=== PATIENT | female | born 1960 | race Caucasian/White ===

== ENCOUNTER → 2023-03-15 | Outpatient (CLI) | payer BC ==
[2023-03-16 02:29] LABS: HCT 51.2 % (37.2-46.3); HGB 16.3 g/dL (12.0-15.0); MCH 29.5 pg (27.0-32.0); MCHC 31.8 g/dL (32.0-37.0); MCV 92.8 fL (80.0-97.0); NRBC Per 100 WBC 0 /100 WBCS (0.0-0.0); Platelet Count 324 X 10*3/uL (140-440); RBC 5.52 X 10*6/uL (4.10-5.20); RDW 12.9 % (11.5-14.5); WBC 17.35 X 10*3/uL (4.50-10.00)
[2023-03-16 04:11] LABS: Basophils # (A) 0.16 X 10*3/uL (0.00-0.10); Basophils % (A) 0.9 %; Eosinophils # (A) 0.41 X 10*3/uL (0.04-0.35); Eosinophils % (A) 2.4 %; Immature Grans, Automated 0.2 %; Lymphocytes # (A) 5.88 X 10*3/uL (0.90-5.00); Lymphocytes % (A) 33.9 %; Monocytes # (A) 1.43 X 10*3/uL (0.20-1.00); Monocytes % (A) 8.2 %; Neutrophils # (A) 9.43 X 10*3/uL (1.80-7.70); Neutrophils % (A) 54.4 %
[2023-03-16 04:12] LABS: RBC Morphology NORMAL
== END | disposition home or self-care (01) ==
LOC: LABWHC1 15:47
PROVIDERS: ATTEND Physician Assistant Medical
DX: E11.9 Type 2 diabetes mellitus without complications (principal); D72.829 Elevated white blood cell count, unspecified
CPT/HCPCS: 36415; 85025

== ENCOUNTER → 2023-03-25 | Outpatient (CLI) | payer BC ==
--- NOTE | 2023-03-25 16:01 | US ---
EXAMINATION TYPE: US kidneys/renal and bladder DATE OF EXAM: 03/25/2023 COMPARISON: NONE CLINICAL INDICATION: Female, 63 years old with history of R10.9 ABD PAIN; Pt states right flank pain EXAM MEASUREMENTS: Right Kidney: 13.3 x 5.7 x 5.5 cm Left Kidney: 11.1 x 5.6 x 4.5 cm Post Void Residual Volume: 4 mL Right Kidney: Complex/solid lesion lower pole= 6.1 x 4.7 x 4.5 cm Left Kidney: wnl Bladder: wnl Bilateral Jets seen: No Normal Post Void Residual: Yes There is no evidence for hydronephrosis at this point in time. When scanning the right kidney adjacen t liver is heterogeneous and hyperechoic suggesting diffuse fatty infiltration. No nephrolithiasis is seen. Suspicious for dominant solid mass with cystic component measuring 6.1 x 4.5 x 4.7 cm lower po le right kidney.. The urinary bladder is adequately distended. Bilateral ureteral jets are seen. Tr paloma residual urine after voiding. IMPRESSION: Complex mass lower pole right kidney. Renal neoplasm needs to be considered. Follow-up re nal protocol CT or MRI is advised to further evaluate.
== END | disposition home or self-care (01) ==
LOC: RADUSWWP 14:41
PROVIDERS: ATTEND Family Medicine
DX: N28.89 Other specified disorders of kidney and ureter (principal); R10.9 Unspecified abdominal pain
CPT/HCPCS: 76770

== ENCOUNTER → 2023-03-26 | Outpatient (CLI) | payer BC ==
[2023-03-26 09:23] LABS: Basophils % (A) 0 %; Eosinophils # (A) 0.2 k/uL (0-0.7); Eosinophils % (A) 2 %; HCT 47.7 % (34.0-46.0); HGB 15.4 gm/dL (11.4-16.0); Lymphocytes # (A) 3.3 k/uL (1.0-4.8); Lymphocytes % (A) 25 %; MCHC 32.3 g/dL (31.0-37.0); MCV 89.7 fL (80.0-100.0); Mean Platelet Volume 9.4; Monocytes # (A) 0.7 k/uL (0-1.0); Monocytes % (A) 6 %; Neutrophils # (A) 8.5 k/uL (1.3-7.7); Neutrophils % (A) 66 %; Platelet Count 263 k/uL (150-450); RBC 5.32 m/uL (3.80-5.40); RDW 12.6 % (11.5-15.5); WBC 12.9 k/uL (3.8-10.6)
[2023-03-26 14:31] LABS: Erythrocyte Sedimentation Rate 7 mm/hr (0-20)
[2023-03-26 15:17] LABS: Rheumatoid Factor, Qnt <10 IU/mL (0-15)
[2023-03-26 15:37] LABS: ALT 16 U/L (8-44); AST 17 U/L (13-35); African American GFR (CKD) 78.3 (60.0-200.0); Albumin 4.1 g/dL (3.8-4.9); Albumin/Globulin Ratio 1.58 (1.60-3.17); Alkaline Phosphatase 58 U/L (41-126); BUN/Creat Ratio 15.33 Ratio (12.00-20.00); Blood Urea Nitrogen 13.8 mg/dL (9.0-27.0); Calcium 9.7 mg/dL (8.7-10.3); Chloride 107 mmol/L (96-109); Chol/HDL Ratio 2.95 Ratio; Globulin 2.6 g/dL (1.6-3.3); Glucose 111 mg/dL (70-110); LDL Cholesterol,Calculated 76.3 mg/dL (0.0-131.0); Non-African American GFR(CKD) 67.6 (60.0-200.0); Potassium 4.6 mmol/L (3.5-5.5); Sodium 143 mmol/L (135-145); Total Protein 6.7 g/dL (6.2-8.2)
== END | disposition home or self-care (01) ==
LOC: LABWHC1 07:30
PROVIDERS: ATTEND Physician Assistant Medical
DX: Z13.220 Encounter for screening for lipoid disorders (principal); Z13.1 Encounter for screening for diabetes mellitus; D72.829 Elevated white blood cell count, unspecified; E11.9 Type 2 diabetes mellitus without complications; R53.83 Other fatigue; R21 Rash and other nonspecific skin eruption
CPT/HCPCS: 36415; 80053; 80061; 83036; 84443; 84481; 85025; 85652; 86038; 86140; 86431

== ENCOUNTER → 2023-04-01 | Outpatient (CLI) | payer BC ==
--- NOTE | 2023-04-02 08:51 | MR ---
EXAMINATION TYPE: MR kidney wo/w con DATE OF EXAM: 04/01/2023 COMPARISON: Ultrasound 03/25/2023 HISTORY: Mass on right kidney CONTRAST: Standard multiplanar, multisequence MRI departmental protocol images were obtained without contrast a nd with 11 mL intravenous Gadavist gadolinium contrast. FINDINGS: There is a heterogeneous signal mass involving the lower pole the right kidney measuring 6 x 4.5 x 4. 5 cm. Lesion appears partially cystic and subtraction sequencing demonstrates enhancement with a larg e solid component. No evidence of renal vein invasion. No definite surrounding adenopathy. Pancreas and adrenal glands are homogeneous in signal. Visualized liver and spleen are homogeneous in signal. In the upper pole of the bilateral kidneys there are subcentimeter well-circumscribed lesions with no enhancement and MRI characteristics of simple cyst Bosniak classification 1. There is no free fluid. No adenopathy. Hypertrophic and degenerative change of the spine is seen. Aor ta of normal caliber. IMPRESSION: 1. There is a 6 x 4.5 x 4.5 cm partially cystic partially solid enhancing mass involving the lower po le the right kidney compatible with a Bosniak classification 4 suspicious for renal carcinoma. No adjacent adenopathy or renal vein invasion.
== END | disposition home or self-care (01) ==
LOC: RADMRIMAIN 09:03
PROVIDERS: ATTEND Physician Assistant Medical
DX: N28.89 Other specified disorders of kidney and ureter (principal)
CPT/HCPCS: 74183; A9585

== ENCOUNTER → 2023-04-15 | Outpatient (CLI) | payer BC ==
[2023-04-15 16:11] LABS: African American GFR (CKD) >90 (>60 ml/min/1.73 sqM); Blood Urea Nitrogen 17 mg/dL (7-17); Non-African American GFR(CKD) 80 (>60 ml/min/1.73 sqM)
--- NOTE | 2023-04-16 09:05 | CT ---
EXAMINATION TYPE: CT chest wo con DATE OF EXAM: 04/15/2023 COMPARISON: NONE HISTORY: Rt side kidney mass or neoplasm. Staging study. CT DLP: 495.5 mGycm. Automated Exposure Control for Dose Reduction was Utilized. TECHNIQUE: CT scan of the thorax is performed without IV contrast. FINDINGS: LUNGS: The lungs are grossly clear, there is no concerning greater than 5 mm parenchymal mass or nodu le identified. There is 4 mm peripheral calcified left lower lobe nodule or benign granuloma axial im age 43. There is 2 to 3 mm peripheral noncalcified nodule in the left lower lobe axial image 45. Ther e is 3 mm nodule in the periphery left upper lobe axial image 23. There is no pleural effusion or pn eumothorax seen. The tracheobronchial tree is patent. MEDIASTINUM: Lack of IV contrast is noted to limit evaluation for mediastinal and especially hilar ad enopathy. There are calcified right peritracheal and bilateral hilar along with subcarinal lymph node s. No greater than 1 cm noncalcified mediastinal lymph nodes. No cardiomegaly or pericardial effusi on is seen. Ascending aorta measures up to 4.0 cm in diameter. OTHER: There are prominent borderline enlarged bilateral axillary lymph nodes. There is additional 1. 0 cm mass in the lower lateral right thorax axial image 38 favoring low lying lymph node. Visualized liver is low dense consistent with diffuse fatty infiltration. Multilevel spurring in the spine is se en. IMPRESSION: A few scattered small nodules is nonspecific. No convincing evidence of metastatic diseas e. Evidence of old granulomatous disease. Nonspecific prominent borderline enlarged bilateral axillar y lymph nodes.
== END | disposition home or self-care (01) ==
LOC: RADCTMAIN 15:23
PROVIDERS: ATTEND Urology
DX: D41.02 Neoplasm of uncertain behavior of left kidney (principal); R91.8 Other nonspecific abnormal finding of lung field
CPT/HCPCS: 82565; 84520; 71250; 36415; Q9967

== ENCOUNTER → 2023-05-02 | Outpatient (CLI) | payer BC ==
[2023-05-02 15:53] LABS: BUN/Creat Ratio 15.89 Ratio (12.00-20.00); Blood Urea Nitrogen 14.3 mg/dL (9.0-27.0); Calcium 10.2 mg/dL (8.7-10.3); Carbon Dioxide 29.2 mmol/L (21.6-31.8); Chloride 98 mmol/L (96-109); Glucose 124 mg/dL (70-110); Potassium 4.1 mmol/L (3.5-5.5); Sodium 139 mmol/L (135-145)
[2023-05-02 16:07] LABS: Appearance,Urine Clear (Clear); Bilirubin,Urine Negative (Negative); Blood,Urine Negative (Negative); Color,Urine Yellow (Yellow); Ketones,Urine Negative (Negative); Nitrite,Urine Negative (Negative); Specific Gravity,Urine 1.008 (1.001-1.030); Urobilinogen,Urine 0.2
[2023-05-02 20:38] LABS: Basophils # (A) 0.08 X 10*3/uL (0.00-0.10); Basophils % (A) 0.5 %; Eosinophils # (A) 0.14 X 10*3/uL (0.04-0.35); Eosinophils % (A) 0.9 %; HCT 48.2 % (37.2-46.3); HGB 15.7 d/dL (12.0-15.0); Lymphocytes # (A) 4.17 X 10*3/uL (0.90-5.00); Lymphocytes % (A) 25.6 %; MCHC 32.6 d/dL (32.0-37.0); Mean Platelet Volume 11.4 FL (9.5-12.2); Monocytes # (A) 1.36 X 10*3/uL (0.20-1.00); Monocytes % (A) 8.4 %; NRBC Per 100 WBC 0 X 10*3/uL (0.00-0.01); Neutrophils # (A) 10.42 X 10*3/uL (1.80-7.70); Platelet Count 317 X 10*3/uL (140-440); RBC 5.24 X 10*6/uL (4.10-5.20); RDW 13.3 % (11.5-14.5); WBC 16.26 X 10*3/uL (4.50-10.00)
== END | disposition home or self-care (01) ==
LOC: LABPAT 08:44
PROVIDERS: ATTEND Urology
DX: Z01.812 Encounter for preprocedural laboratory examination (principal); D41.01 Neoplasm of uncertain behavior of right kidney; N28.89 Other specified disorders of kidney and ureter; E11.9 Type 2 diabetes mellitus without complications; R31.29 Other microscopic hematuria
CPT/HCPCS: 36415; 80048; 81003; 85025; 87086

== ENCOUNTER 2023-05-09 09:18 | Observation (INO) | payer BC ==
[~2023-05-09 09:18] MED LIST: DEXAMETHASONE SOD PHOSPHATE 4 MG/ML 1 ML VIAL IV ONE; ONDANSETRON 4 MG/2 ML VIAL IVP ONE; fentaNYL (PF) 50 MCG/ML 2 ML AMP IV PRN
[2023-05-09 09:58] LABS: Glucose,Whole Blood 142 mg/dL (70-110)
[2023-05-09] MEDS: LACTATED RINGERS 1,000 ML IV SCH ×2 (10:03→18:06)
[2023-05-09] MEDS ORDERED: MIDAZOLAM 2 MG/2 ML VIAL IVP ONE (10:30)
--- NOTE | 2023-05-09 10:30 | P.HPIHPCON ---
History of Present Illness H&P Date: 05/09/23 Chief Complaint: Right renal mass This is a 63-year-old female with history of 6 cm right-sided cystic renal mass was found incidentally. Discussed with her this is highly concerning for renal cell carcinoma. Discussed with her the option of a right-sided partial nephrectomy with a possible conversion to radical nephrectomy. Discussed with her the risk which includes but not limited to bleeding, infection, injury to nearby organs which includes but not limited to bowel, liver, blood vessels. Discussed also given the size of the tumor there is a high potential of converting to a radical nephrectomy. Discussed if radical nephrectomy is performed there is a risk of needing hemodialysis in the short and long-term. Discussed also the potential of cancer recurrence and the need for surveillance. Discussed also potential this could be a benign pathology. Of note she did have evidence of a 7 mm pulmonary nodule, discussed she will need surveillance CT chest as this is not definitive for metastatic disease but there is potential of metastatic disease. She was evaluated by medical oncology prior to surgery. Medical complication was also discussed. She understood all the risk and agreed to proceed with a right-sided partial nephrectomy possible radical nephrectomy robotically Consent for Procedure: I have explained the operation/procedure to the patient, including the risks, benefits, side effects, alternative therapies (including not receiving the proposed treatment or service), the likelihood of the patient achieving his/her goals, and potential recuperation problems for the procedure/sedation/analgesia, as well as any blood products, if indicated. I also explained to the patient the risks, benefits and side effects of the alternatives, as well as the risks related to not receiving the proposed procedure, care, treatment, or services. Past Medical History Past Medical History: Diabetes Mellitus, Hypertension History of Any Multi-Drug Resistant Organisms: None Reported Past Surgical History: Section, Cholecystectomy, Hysterectomy, Joint Replacement Additional Past Surgical History / Comment(s): LEFT KNEE REPLACEMENT Past Anesthesia/Blood Transfusion Reactions: No Reported Reaction Past Psychological History: Anxiety Smoking Status: Current every day smoker Past Alcohol Use History: Occasional Past Drug Use History: None Reported - Past Family History Mother Family Medical History: No Reported History Medications and Allergies Home Medications Medication Instructions Recorded Confirmed Type Aspirin 81 mg PO DAILY 09/16/15 05/07/23 History Cholecalciferol [Vitamin D3] 1,000 unit PO DIRECTED 09/16/15 05/07/23 History Benazepril [Lotensin] 10 mg PO DAILY 05/07/23 05/07/23 History Ondansetron [Zofran] 4 mg PO Q8HR PRN 05/07/23 05/07/23 History Triamterene/Hydrochlorothiazid 1 each PO DAILY 05/07/23 05/07/23 History [Triamterene-Hctz 37.5-25 mg Cp] amLODIPine [Norvasc] 5 mg PO DAILY 05/07/23 05/07/23 History sitaGLIPtin PHOS/metFORMIN HCL 1 tab PO DAILY 05/07/23 05/07/23 History [Janumet Xr 100-1,000 mg Tablet] Allergies Allergy/AdvReac Type Severity Reaction Status Date / Time nickel Allergy Rash/Hives Verified 05/09/23 09:45 Sulfa (Sulfonamide Allergy Rash/Hives Verified 05/09/23 09:45 Antibiotics) codeine AdvReac Nausea & Verified 05/09/23 09:45 Vomiting & Diarrhea Surgical - Exam Vital Signs Temp Pulse Resp BP Pulse Ox 97.8 F 68 16 134/70 97 05/09/23 09:41 05/09/23 09:41 05/09/23 09:41 05/09/23 09:41 05/09/23 09:41 - General no distress, no pain - Eyes normal ocular movement, no pale - ENT normal nares, normal mucosa - Respiratory normal expansion, normal respiratory effort - Abdomen Abdomen: soft, non tender - Psychiatric oriented to time, oriented to person, oriented to place Results - Labs Abnormal Lab Results - Last 24 Hours (Table) 05/09/23 Range/Units 09:57 POC Glucose (mg/dL) 142 H (70-110) mg/dL Assessment and Plan Assessment: OR for right-sided robotic partial nephrectomy possible radical
[2023-05-09] MEDS ORDERED: ROCURONIUM 10 MG/ML (5 ML VIAL) IV ONE (11:19)
[2023-05-09] MEDS ORDERED: fentaNYL (PF) 50 MCG/ML 2 ML AMP ONE (11:19)
[2023-05-09] MEDS ORDERED: GLYCOPYRROLATE 0.2 MG/ML 2 ML VIAL ONE (11:19)
[2023-05-09] MEDS ORDERED: KETOROLAC 30 MG/ML 1 ML VIAL ONE (11:19)
[2023-05-09] MEDS ORDERED: MIDAZOLAM 2 MG/2 ML VIAL ONE (11:19)
[2023-05-09] MEDS ORDERED: LIDOCAINE 2% INJ 20 MG/ML (2 ML VIAL) ONE (11:19)
[2023-05-09] MEDS ORDERED: SUCCINYLCHOLINE CHLORIDE 200 MG/10 ML VIAL IV ONE (11:19)
[2023-05-09] MEDS ORDERED: NEOSTIGMINE 1 MG/ML 10 ML VIAL ONE (11:19)
[2023-05-09] MEDS ORDERED: PROPOFOL 10 MG/ML 20 ML VIAL IV ONE (11:19)
[2023-05-09] MEDS ORDERED: HYDROmorphone (PF) 1 MG/ML ONE (11:19)
[2023-05-09] MEDS ORDERED: BUPIVACAINE (PF) 0.25% 30 ML VIAL SQ ONE (12:27)
[2023-05-09] MEDS ORDERED: LACTATED RINGERS 1,000 ML IV ONE (13:14)
--- NOTE | 2023-05-09 14:15 | P.OP ---
Date of Procedure: 05/09/23 Preoperative Diagnosis: Right renal mass Postoperative Diagnosis: Same Procedure(s) Performed: Right sided robotic partial nephrectomy, with intraoperative ultrasound Implants: None Anesthesia: ADDIE Surgeon: Erick Toro Meeting Planner #1: Rubina Snell Estimated Blood Loss (ml): 100 Pathology: other (Right renal mass) Condition: stable Disposition: PACU Indications for Procedure: This is a 63-year-old female with history of 6 cm right-sided cystic renal mass was found incidentally. Discussed with her this is highly concerning for renal cell carcinoma. Discussed with her the option of a right-sided partial nephrectomy with a possible conversion to radical nephrectomy. Discussed with her the risk which includes but not limited to bleeding, infection, injury to nearby organs which includes but not limited to bowel, liver, blood vessels. Discussed also given the size of the tumor there is a high potential of converting to a radical nephrectomy. Discussed if radical nephrectomy is performed there is a risk of needing hemodialysis in the short and long-term. Discussed also the potential of cancer recurrence and the need for surveillance. Discussed also potential this could be a benign pathology. Of note she did have evidence of a 7 mm pulmonary nodule, discussed she will need surveillance CT chest as this is not definitive for metastatic disease but there is potential of metastatic disease. She was evaluated by medical oncology prior to surgery. Medical complication was also discussed. She understood all the risk and agreed to proceed with a right-sided partial nephrectomy possible radical nephrectomy robotically Description of Procedure: The patient was taken to the operating room . General anesthesia was induced. She was prepped and draped in sterile fashion, and was placed in modified flank position . All pressure points were padded. The abdominal insufflation was achieved with the Veress needle. A 8 mm camera port was placed. Robotic trocars and journeyman operator assistant ports were placed under direct vision. a 5 mm liver retractor was placed. . The robot was docked into place. The colon was mobilized medially by incising along the white line of Toldt. Next the duodenum was kocherized. Once the bowel, was mobilized. At this time the gonadal vessel was visualized. Once the gonadal vessel and ureter was visualized , next after the psoas plane was developed the ureter and gonadal vessel was retracted anteriorly off the psoas muscle. Dissection proceeded cranially towards the renal hilum.The renal vessels were dissected. The renal artery and the vein was dissected in preparation for clamping. Next attention was carried to the tumor, the area around the tumor was defatted, insuring adequate defatting to identify a normal parenchyma. Intraoperative ultrasound was used to clearly defined the tumor edges. Manitol was administered. The renal artery was clamped using 3 bulldogs. After clamping the renal artery the tumor was enucleated given the close proximity to the hilum. Cautery was used in areas of bleeding. Next the defect was closed in 2 layers using 30V lock for the inner layer, 20V lock in interrupted fashion for the outer layer. Sliding clip technique was used. Next the clamps were removed, there was no evidence of bleeding from the defect. Total clamp time was 24 minutes. Hemostatic agents were applied The kidney tumor was placed in an Endo Catch bag. The gerota l fat around the kidney was closed using 3-0 V lock. A KEISHA drain was placed through the lower robotic trocor incision. The robot was then de-docked and the specimen was then removed by extending the journeyman operator assistant port. Fascia was closed using #1 PDS in running fashion. Skin was closed with subcuticular sutures and dermabond. The patient was awoken from general anesthesia in stable condition. all counts were correct Please refer to the final pathology report for final diagnosis
[2023-05-09] MEDS ORDERED: ONDANSETRON 4 MG/2 ML VIAL IVP PRN (14:16)
[2023-05-09] MEDS ORDERED: MEPERIDINE 50 MG/ML SYRINGE IVP ONE (15:02)
[2023-05-09] MEDS: SODIUM CHLORIDE 0.9% 1,000 ML IV SCH ×2 (16:08→17:20)
[2023-05-09] MEDS: KETOROLAC 15 MG/ML 1 ML VIAL IVP SCH (17:19)
[2023-05-09 20:25] LABS: Glucose,Whole Blood 130 mg/dL (70-110)
[2023-05-09] MEDS: HYDROmorphone 1 MG/ML 1 ML SYRINGE IVP PRN (20:25)
[2023-05-10] MEDS: KETOROLAC 15 MG/ML 1 ML VIAL IVP SCH ×4 (00:15→16:46)
[2023-05-10] MEDS: HYDROmorphone 1 MG/ML 1 ML SYRINGE IVP PRN ×3 (02:41→20:33)
[2023-05-10 06:13] LABS: Glucose,Whole Blood 112 mg/dL (70-110)
[2023-05-10 06:41] LABS: Basophils % (A) 0 %; Eosinophils # (A) 0.1 k/uL (0-0.7); Eosinophils % (A) 1 %; HCT 40.5 % (34.0-46.0); HGB 13.1 gm/dL (11.4-16.0); Lymphocytes # (A) 3.4 k/uL (1.0-4.8); Lymphocytes % (A) 18 %; MCH 29.4 pg (25.0-35.0); MCHC 32.4 g/dL (31.0-37.0); MCV 90.9 fL (80.0-100.0); Mean Platelet Volume 8.9; Monocytes # (A) 1.4 k/uL (0-1.0); Monocytes % (A) 7 %; Neutrophils # (A) 13.9 k/uL (1.3-7.7); Neutrophils % (A) 73 %; Platelet Count 262 k/uL (150-450); RBC 4.46 m/uL (3.80-5.40)
[2023-05-10 06:59] LABS: African American GFR (CKD) 83 (>60 ml/min/1.73 sqM); Anion Gap 4 mmol/L; Blood Urea Nitrogen 14 mg/dL (7-17); Calcium 8.3 mg/dL (8.4-10.2); Carbon Dioxide 27 mmol/L (22-30); Chloride 103 mmol/L (98-107); Glucose 83 mg/dL (74-99); Non-African American GFR(CKD) 72 (>60 ml/min/1.73 sqM); Potassium 3.8 mmol/L (3.5-5.1); Sodium 134 mmol/L (137-145)
[2023-05-10] MEDS: LINAGLIPTIN 5 MG TABLET PO SCH (08:06)
[2023-05-10] MEDS: metFORMIN 500 MG TAB PO SCH ×2 (08:06→20:18)
[2023-05-10] MEDS: TRIAMTERENE-HCTZ 37.5-25MG 1 EACH CAP PO SCH (08:06)
[2023-05-10] MEDS: lisinopriL 10 MG TAB PO SCH (08:07)
[2023-05-10] MEDS: amLODIPine 5 MG TAB PO SCH (08:07)
[2023-05-10] MEDS: CHOLECALCIFEROL 25 MCG (1000 IU) TABLET PO SCH (08:07)
--- NOTE | 2023-05-10 08:28 | P.PN ---
Subjective Progress Note Date: 05/10/23 Principal diagnosis: POD #1, s/p robotic-assisted laparoscopic right partial nephrectomy The patient reports mild incisional discomfort. She is concerned she has not had a bowel movement. She denies nausea. She has ambulated. Objective - Vital Signs Vital signs: Vital Signs Temp 98.3 F 05/10/23 06:40 Pulse 65 05/10/23 06:40 Resp 16 05/10/23 06:40 BP 146/82 05/10/23 06:40 Pulse Ox 96 05/10/23 06:40 FiO2 Intake & Output 05/09/23 05/10/23 05/10/23 18:59 06:59 18:59 Intake Total 2750 Output Total 775 435 Balance 1974 - Weight 107 kg Intake: IV 2750 Output: Drainage 75 35 Right Lower Abdomen 75 35 Urine 600 400 Estimated Blood Loss 100 Other: Voiding Method Indwelling Catheter Indwelling Catheter - Constitutional General appearance: Present: average body habitus, cooperative, no acute distress - Gastrointestinal Gastrointestinal Comment(s): Soft, nondistended. Incisions clean, dry, and intact. - Psychiatric Psychiatric: Present: A&O x's 3 - Labs CBC & Chem 7: 05/10/23 05:13 05/10/23 05:13 Labs: Abnormal Lab Results - Last 24 Hours (Table) 05/09/23 05/09/23 05/10/23 Range/Units 09:57 20:23 05:13 WBC 19.0 H (3.8-10.6) k/uL Neutrophils # 13.9 H (1.3-7.7) k/uL Monocytes # 1.4 H (0-1.0) k/uL Sodium (137-145) mmol/L POC Glucose (mg/dL) 142 H 130 H (70-110) mg/dL Calcium (8.4-10.2) mg/dL 05/10/23 05/10/23 Range/Units 05:13 06:12 WBC (3.8-10.6) k/uL Neutrophils # (1.3-7.7) k/uL Monocytes # (0-1.0) k/uL Sodium 134 L (137-145) mmol/L POC Glucose (mg/dL) 112 H (70-110) mg/dL Calcium 8.3 L (8.4-10.2) mg/dL Assessment and Plan (1) Right renal mass Current Visit: Yes Status: Acute Code(s): N28.89 - OTHER SPECIFIED DISORDERS OF KIDNEY AND URETER SNOMED Code(s): 590685390 Plan: The Patton catheter will be removed. The KEISHA drain will remain in place. Discharge home in 24 hours is anticipated.
[2023-05-10] MEDS ORDERED: CHOLECALCIFEROL 25 MCG (1000 IU) TABLET PO SCH (09:00)
[2023-05-10 11:26] LABS: Glucose,Whole Blood 113 mg/dL (70-110)
[2023-05-10 13:20] VITALS: BMI 33.8
[2023-05-10] MEDS: SODIUM CHLORIDE 0.9% 1,000 ML IV SCH (14:56)
[2023-05-10 16:37] LABS: Glucose,Whole Blood 135 mg/dL (70-110)
[2023-05-10 20:00] LABS: Glucose,Whole Blood 139 mg/dL (70-110)
[2023-05-11] MEDS: KETOROLAC 15 MG/ML 1 ML VIAL IVP SCH ×3 (00:13→14:09)
[2023-05-11 05:57] LABS: Glucose,Whole Blood 124 mg/dL (70-110)
[2023-05-11] MEDS: LACTATED RINGERS 1,000 ML IV SCH (06:36)
[2023-05-11] MEDS: SODIUM CHLORIDE 0.9% 1,000 ML IV SCH (06:37)
[2023-05-11 07:26] VITALS: RESP 16
[2023-05-11] MEDS: TRIAMTERENE-HCTZ 37.5-25MG 1 EACH CAP PO SCH (08:58)
[2023-05-11] MEDS: CHOLECALCIFEROL 25 MCG (1000 IU) TABLET PO SCH (08:58)
[2023-05-11] MEDS: lisinopriL 10 MG TAB PO SCH (08:58)
[2023-05-11] MEDS: LINAGLIPTIN 5 MG TABLET PO SCH (08:58)
[2023-05-11] MEDS: metFORMIN 500 MG TAB PO SCH (08:58)
[2023-05-11] MEDS: amLODIPine 5 MG TAB PO SCH (08:58)
[2023-05-11 11:19] LABS: Glucose,Whole Blood 81 mg/dL (70-110)
[2023-05-11 13:52] VITALS: BP 138/81; PULSE 78; TEMP 98.6
--- NOTE | 2023-05-11 14:08 | P.DS ---
Providers Date of admission: 05/10/23 13:55 Expected date of discharge: 05/11/23 Attending physician: Erick Toro MD Primary care physician: Raphael Calixto - Discharge Diagnosis(es) (1) Right renal mass Current Visit: Yes Status: Acute Hospital Course: On the day of admission, the patient underwent an uncomplicated robotic-assisted laparoscopic right partial nephrectomy. The perioperative course was unremarkable. She remained afebrile with stable vital signs. She reported significant incisional discomfort on the first postoperative day, which was much improved on the second postoperative day. She was tolerating diet in small amounts. She denied nausea, chest pain, and dyspnea. She was passing flatus but had not had a bowel movement. She experienced some bleeding from one of her incisions on the first postoperative day. At the time of discharge, the abdomen was soft and nondistended. The incisions were clean, dry, and intact. KEISHA nicholas inage was minimal, and therefore the drain was removed prior to discharge. Procedures: Robotic assisted laparoscopic right partial nephrectomy on 05/09/2023. Patient Condition at Discharge: Good Plan - Discharge Summary Discharge Rx Participant: No New Discharge Prescriptions: New traMADol HCl [Ultram] 50 mg PO Q6HR PRN 3 Days #10 tab PRN Reason: Moderate To Severe Pain (4-10) No Action Cholecalciferol [Vitamin D3] 1,000 unit PO DIRECTED Aspirin 81 mg PO DAILY Triamterene/Hydrochlorothiazid [Triamterene-Hctz 37.5-25 mg Cp] 1 each PO DAILY Benazepril [Lotensin] 10 mg PO DAILY sitaGLIPtin PHOS/metFORMIN HCL [Janumet Xr 100-1,000 mg Tablet] 1 tab PO DAILY Ondansetron [Zofran] 4 mg PO Q8HR PRN PRN Reason: Nausea amLODIPine [Norvasc] 5 mg PO DAILY Discharge Medication List Aspirin 81 mg PO DAILY 09/16/15 [History] Cholecalciferol [Vitamin D3] 1,000 unit PO DIRECTED 09/16/15 [History] Benazepril [Lotensin] 10 mg PO DAILY 05/07/23 [History] Ondansetron [Zofran] 4 mg PO Q8HR PRN 05/07/23 [History] Triamterene/Hydrochlorothiazid [Triamterene-Hctz 37.5-25 mg Cp] 1 each PO DAILY 05/07/23 [History] amLODIPine [Norvasc] 5 mg PO DAILY 05/07/23 [History] sitaGLIPtin PHOS/metFORMIN HCL [Janumet Xr 100-1,000 mg Tablet] 1 tab PO DAILY 05/07/23 [History] traMADol HCl [Ultram] 50 mg PO Q6HR PRN 3 Days #10 tab 05/11/23 [Rx] Follow up Appointment(s)/Referral(s): Erick Toro MD [STAFF PHYSICIAN] - 05/20/23 Activity/Diet/Wound Care/Special Instructions: Diet as tolerated. May shower on 05/12/2023. Drink plenty of fluids. No lift ing or strenuous activity. No driving for 1 week. Discharge Disposition: HOME SELF-CARE
== END 2023-05-11 14:58 | disposition home or self-care (01) ==
LOC: OR 09:18 → 4SSUR 14:27 → OR 05-10 13:55 → 4SSUR 05-10 13:55
PROVIDERS: ADMIT Urology; ATTEND Urology
DX: C64.1 Malignant neoplasm of right kidney, except renal pelvis (principal); E11.9 Type 2 diabetes mellitus without complications; Z98.891 History of uterine scar from previous surgery; Z90.49 Acquired absence of other specified parts of digestive tract; Z90.710 Acquired absence of both cervix and uterus; Z96.652 Presence of left artificial knee joint; F41.9 Anxiety disorder, unspecified; F17.200 Nicotine dependence, unspecified, uncomplicated; Z79.84 Long term (current) use of oral hypoglycemic drugs; Z79.02 Long term (current) use of antithrombotics/antiplatelets; Z79.82 Long term (current) use of aspirin; Z79.899 Other long term (current) drug therapy; Z88.5 Allergy status to narcotic agent; Z88.2 Allergy status to sulfonamides; Z91.09 Other allergy status, other than to drugs and biological substances
CPT/HCPCS: 94760; 86900; 86901; 80048; 85025; 86850; 88307; 50543; G0378 ×2; C1762; J2250; J0330; J1100; J2710; J2175; J0690; J2405; J3010; J1885 ×4; J1170 ×2; J2704; J2001

== ENCOUNTER 2023-05-28 12:54 | Emergency (ER) | payer BC ==
[2023-05-28 13:10] VITALS: RESP 18; TEMP 97.7
[2023-05-28 13:43] LABS: Basophils # (A) 0.1 k/uL (0-0.2); Basophils % (A) 0 %; Eosinophils # (A) 2.2 k/uL (0-0.7); Eosinophils % (A) 11 %; Lymphocytes # (A) 5.5 k/uL (1.0-4.8); Lymphocytes % (A) 27 %; MCH 29.3 pg (25.0-35.0); Mean Platelet Volume 8.5; Monocytes # (A) 0.8 k/uL (0-1.0); Monocytes % (A) 4 %; Neutrophils # (A) 11.3 k/uL (1.3-7.7); Neutrophils % (A) 56 %; Platelet Count 429 k/uL (150-450); RBC 5.46 m/uL (3.80-5.40); WBC 20.2 k/uL (3.8-10.6)
[2023-05-28 13:57] LABS: ALT 23 U/L (4-34); AST 28 U/L (14-36); African American GFR (CKD) >90 (>60 ml/min/1.73 sqM); Albumin 4.6 g/dL (3.5-5.0); Alkaline Phosphatase 61 U/L (38-126); Amylase 68 U/L (30-110); Anion Gap 11 mmol/L; Blood Urea Nitrogen 9 mg/dL (7-17); Calcium 9.8 mg/dL (8.4-10.2); Carbon Dioxide 28 mmol/L (22-30); Chloride 89 mmol/L (98-107); Glucose 117 mg/dL (74-99); Lipase 262 U/L (23-300); Non-African American GFR(CKD) >90 (>60 ml/min/1.73 sqM); Potassium 3.9 mmol/L (3.5-5.1); Sodium 128 mmol/L (137-145); Total Bilirubin 0.9 mg/dL (0.2-1.3); Total Protein 7.9 g/dL (6.3-8.2)
--- NOTE | 2023-05-28 14:20 | ED ---
General Adult HPI - General Source: patient Mode of arrival: ambulatory Limitations: no limitations <Ochoa Bradley - Last Filed: 05/28/23 15:24> <Amadou Cho - Last Filed: 05/28/23 17:56> - General Chief complaint: Urogenital Stated complaint: Possible UTI Time Seen by Provider: 05/28/23 14:05 - History of Present Illness Initial comments: This is a 63-year-old female who presents emergency Department complaining some dysuria and feeling weak. Patient states about 3 weeks ago she had a partial nephrectomy and since then he went to Keflex initially and then switched to Cipro. Patient states she still has a history dysuria and feels weak and that she. Patient is concerned that the infection is not gone per patient denies any fever chills per patient denies any back pain. Patient denies any abdominal pain. Patient denies any vomiting but is very nauseated. Patient denies any other symptoms. (Ochoa Bradley) - Related Data Home Medications Medication Instructions Recorded Confirmed Aspirin 81 mg PO DAILY 09/16/15 05/28/23 Benazepril [Lotensin] 10 mg PO DAILY 05/07/23 05/28/23 Ondansetron [Zofran] 4 mg PO Q8HR PRN 05/07/23 05/28/23 amLODIPine [Norvasc] 5 mg PO DAILY 05/07/23 05/28/23 sitaGLIPtin PHOS/metFORMIN HCL 1 tab PO DAILY 05/07/23 05/28/23 [Janumet Xr 100-1,000 mg Tablet] ALPRAZolam [Xanax] 0.25 - 0.5 mg PO DAILY PRN 05/28/23 05/28/23 Ciprofloxacin HCl [Cipro] 500 mg PO BID 05/28/23 05/28/23 Triamterene/Hydrochlorothiazid 1 tab PO DAILY 05/28/23 05/28/23 [Triamterene-Hctz 37.5-25 mg Tb] Previous Rx's Medication Instructions Recorded traMADol HCl [Ultram] 50 mg PO Q6HR PRN 3 Days #10 tab 05/11/23 Allergies Allergy/AdvReac Type Severity Reaction Status Date / Time nickel Allergy Rash/Hives Verified 05/28/23 17:38 Sulfa (Sulfonamide Allergy Rash/Hives Verified 05/28/23 17:38 Antibiotics) codeine AdvReac Nausea & Verified 05/28/23 17:38 Vomiting & Diarrhea Review of Systems ROS Other: All systems not noted in ROS Statement are negative. <BradleyOchoa - Last Filed: 05/28/23 15:24> ROS Other: All systems not noted in ROS Statement are negative. <Amadou Cho - Last Filed: 05/28/23 17:56> ROS Statement: Those systems with pertinent positive or pertinent negative responses have been documented in the HPI. Past Medical History Past Medical History: Cancer, Diabetes Mellitus, Hypertension History of Any Multi-Drug Resistant Organisms: None Reported Past Surgical History: Section, Cholecystectomy, Hysterectomy, Joint Replacement Additional Past Surgical History / Comment(s): LEFT KNEE REPLACEMENT, partial right kidney Past Anesthesia/Blood Transfusion Reactions: No Reported Reaction Past Psychological History: Anxiety Smoking Status: Current every day smoker Past Alcohol Use History: Rare Past Drug Use History: None Reported - Past Family History Mother Family Medical History: No Reported History <Ochoa Bradley - Last Filed: 05/28/23 15:24> General Exam Limitations: no limitations <Ochoa Bradley - Last Filed: 05/28/23 15:24> - General Exam Comments Initial Comments: GENERAL: Patient is well-developed and well-nourished. Patient is nontoxic and well- hydrated and is in mild distress. ENT: Neck is soft and supple. No significant lymphadenopathy is noted. Oropharynx is clear. Moist mucous membranes. Neck has full range of motion without eliciting any pain. EYES: The sclera were anicteric and conjunctiva were pink and moist. Extraocular movements were intact and pupils were equal round and reactive to light. Eyelids were unremarkable. PULMONARY: Unlabored respirations. Good breath sounds bilaterally. No audible rales rhonchi or wheezing was noted. CARDIOVASCULAR: There is a regular rate and rhythm without any murmurs gallops or rubs. ABDOMEN: Soft and nontender with normal bowel sounds. SKIN: Skin is clear with no lesions or rashes and otherwise unremarkable. NEUROLOGIC: Patient is alert and oriented x3. Cranial nerves II through XII are grossly intact. Motor and sensory are also intact. Normal speech, volume and content. Symmetrical smile. MUSCULOSKELETAL: Normal extremities with adequate strength and full range of motion. LYMPHATICS: No significant lymphadenopathy is noted PSYCHIATRIC: Normal psychiatric evaluation. (Ochoa Bradley) Course Vital Signs 05/28/23 05/28/23 05/28/23 13:05 14:45 16:40 Temperature 97.7 F Pulse Rate 68 55 L 52 L Respiratory 18 18 18 Rate Blood Pressure 127/84 130/83 129/83 O2 Sat by Pulse 98 96 96 Oximetry 05/28/23 17:13 Temperature Pulse Rate 51 L Respiratory 18 Rate Blood Pressure 117/70 O2 Sat by Pulse 98 Oximetry Medical Decision Making - Lab Data Result diagrams: 05/28/23 13:10 05/28/23 13:10 <Ochoa Bradley - Last Filed: 05/28/23 15:24> - Lab Data Result diagrams: 05/28/23 13:10 05/28/23 13:10 <Amadou Cho - Last Filed: 05/28/23 17:56> - Medical Decision Making Was pt. sent in by a medical professional or institution (, PA, BURN OUT SCARFING OPERATOR, urgent care, hospital, or shelter...) When possible be specific @ -[No] Did you speak to anyone other than the patient for history (EMS, parent, family, police, friend...)? What history was obtained from this source @ -[No] Did you review nursing and triage notes (agree or disagree)? Why? @ -[I reviewed and agree with nursing and triage notes] Were old charts reviewed (outside hosp., previous admission, EMS record, old EKG, old radiological studies, urgent care reports/EKG's, shelter records)? Report findings @ -I reviewed prior charts prior lab work on this patient Differential Diagnosis (chest pain, altered mental status, abdominal pain women, abdominal pain men, vaginal bleeding, weakness, fever, dyspnea, syncope, headache, dizziness, GI bleed, back pain, seizure, CVA, palpatations, mental health, musculoskeletal)? @ -Differential Weakness: Hypoglycemia, shock, sepsis, hyponatremia, anemia, infection, NH, ETOH, adverse medicine reaction, overdose, stroke, this is not meant to be an all-inclusive list. EKG interpreted by me (3pts min.). @ -[As above] X-rays interpreted by me (1pt min.). @ -[None done] CT interpreted by me (1pt min.). @ -[None done] U/S interpreted by me (1pt. min.). @ -[None done] What testing was considered but not performed or refused? (CT, X-rays, U/S, labs)? Why? @ -[None] What meds were considered but not given or refused? Why? @ -[None] Did you discuss the management of the patient with other professionals (professionals i.e. Dr., PA, BURN OUT SCARFING OPERATOR, lab, RT, psych nurse, psychologist social, manager of radiology, teacher, collections officer, pillowcase cleaner)? Give summary @ -[No] Was smoking cessation discussed for >3mins.? @ -[No] Was critical care preformed (if so, how long)? @ -[No] Were there social determinants of health that impacted care today? How? (Homelessness, low income, unemployed, alcoholism, drug addiction, transportation, low edu. Level, literacy, decrease access to med. care, [facility], rehab)? @ -[No] Was there de-escalation of care discussed even if they declined (Discuss DNR or withdrawal of care, Hospice)? DNR status @ -[No] What co-morbidities impacted this encounter? (DM, HTN, Smoking, COPD, CAD, Cancer, CVA, ARF, Chemo, Hep., AIDS, mental health diagnosis, sleep apnea, morbid obesity)? @ -[None] Was patient admitted / discharged? Hospital course, mention meds given and route, prescriptions, significant lab abnormalities, going to OR and other pertinent info. @ -Distended elevated white count and a recent partial nephrectomy so I decided this point and a CAT scan the patient. Patient will be signed out to Dr. Lin 3 PM (Ochoa Bradley) This patient was signed out to me from Dr. Bradley. The patient was signed out pending computed tomography scan. I also placed an ultrasound IV myself and an 18-gauge IV was placed in the left upper extremity for CT. CTU of the abdomen and pelvis with contrast was obtained was interpreted by myself showing perinephric inflammatory changes at the inferior pole the right kidney. This correlates with the patient's surgical history in the previous inferior pole right masses identified. The appendix also has a normal caliber although the tail has some involvement with mild inflammatory changes however this appears to track to the kidney and is likely postsurgical in nature. On evaluation, the patient denied of any right lower quadrant pain and it is unlikely acute appendicitis at this time. On reevaluation, the patient was resting in bed comfortably and denied of any definitive etiology for her leukocytosis. The patient did state that the leukocytosis and nausea has been present over the last 6 months and has been continuous. Because of this, the patient did have a follow-up with her oncologist, Dr. Prado in June and I did recommend her to call the office tomorrow to get an earlier appointment for further workup and evaluation. The patient was stable for discharge home and she was advised report back if she worsening symptoms. The patient was agreeable to this and all her questions were answered. The patient was discharged home in stable condition. Undiagnosed new problem with uncertain prognosis? @ -No Drug Therapy requiring intensive monitoring for toxicity (Heparin, Nitro, Insulin, Cardizem)? @ -No Were any procedures done? @ -No Diagnosis/symptom? @ -Chronic leukocytosis, chronic nausea Acute, or Chronic, or Acute on Chronic? @ -Chronic Uncomplicated (without systemic symptoms) or Complicated (systemic symptoms)? @ -Uncomplicated Side effects of treatment? @ -No Exacerbation, Progression, or Severe Exacerbation? @ -No Poses a threat to life or bodily function? How? (Chest pain, USA, NH, pneumonia, PE, COPD, DKA, ARF, appy, cholecystitis, CVA, Diverticulitis, Homicidal, Suicidal, threat to staff... and all critical care pts) @ -No (Amadou Cho) - Lab Data Lab Results 05/28/23 05/28/23 05/28/23 Range/Units 13:10 13:10 14:24 WBC 20.2 H (3.8-10.6) k/uL RBC 5.46 H (3.80-5.40) m/uL Hgb 16.0 (11.4-16.0) gm/dL Hct 47.0 H (34.0-46.0) % MCV 86.0 (80.0-100.0) fL MCH 29.3 (25.0-35.0) pg MCHC 34.0 (31.0-37.0) g/dL RDW 13.0 (11.5-15.5) % Plt Count 429 (150-450) k/uL MPV 8.5 Neutrophils % 56 % Lymphocytes % 27 % Monocytes % 4 % Eosinophils % 11 % Basophils % 0 % Neutrophils # 11.3 H (1.3-7.7) k/uL Lymphocytes # 5.5 H (1.0-4.8) k/uL Monocytes # 0.8 (0-1.0) k/uL Eosinophils # 2.2 H (0-0.7) k/uL Basophils # 0.1 (0-0.2) k/uL Manual Slide Review Performed RBC Morphology Normal Sodium 128 L (137-145) mmol/L Potassium 3.9 (3.5-5.1) mmol/L Chloride 89 L (98-107) mmol/L Carbon Dioxide 28 (22-30) mmol/L Anion Gap 11 mmol/L BUN 9 (7-17) mg/dL Creatinine 0.71 (0.52-1.04) mg/dL Est GFR (CKD-EPI)AfAm >90 (>60 ml/min/1.73 sqM) Est GFR (CKD-EPI)NonAf >90 (>60 ml/min/1.73 sqM) Glucose 117 H (74-99) mg/dL Calcium 9.8 (8.4-10.2) mg/dL Total Bilirubin 0.9 (0.2-1.3) mg/dL AST 28 (14-36) U/L ALT 23 (4-34) U/L Alkaline Phosphatase 61 (38-126) U/L Total Protein 7.9 (6.3-8.2) g/dL Albumin 4.6 (3.5-5.0) g/dL Amylase 68 (30-110) U/L Lipase 262 (23-300) U/L TSH (0.465-4.680) mIU/L Urine Color Light Yellow Urine Appearance Clear (Clear) Urine pH 7.5 (5.0-8.0) Ur Specific [place] 1.006 (1.001-1.035) Urine Protein Negative (Negative) Urine Glucose (UA) Negative (Negative) Urine Ketones Negative (Negative) Urine Blood Negative (Negative) Urine Nitrite Negative (Negative) Urine Bilirubin Negative (Negative) Urine Urobilinogen <2.0 (<2.0) mg/dL Ur Leukocyte Esterase Negative (Negative) 07/04/23 Range/Units 15:23 WBC (3.8-10.6) k/uL RBC (3.80-5.40) m/uL Hgb (11.4-16.0) gm/dL Hct (34.0-46.0) % MCV (80.0-100.0) fL MCH (25.0-35.0) pg MCHC (31.0-37.0) g/dL RDW (11.5-15.5) % Plt Count (150-450) k/uL MPV Neutrophils % % Lymphocytes % % Monocytes % % Eosinophils % % Basophils % % Neutrophils # (1.3-7.7) k/uL Lymphocytes # (1.0-4.8) k/uL Monocytes # (0-1.0) k/uL Eosinophils # (0-0.7) k/uL Basophils # (0-0.2) k/uL Manual Slide Review RBC Morphology Sodium (137-145) mmol/L Potassium (3.5-5.1) mmol/L Chloride (98-107) mmol/L Carbon Dioxide (22-30) mmol/L Anion Gap mmol/L BUN (7-17) mg/dL Creatinine (0.52-1.04) mg/dL Est GFR (CKD-EPI)AfAm (>60 ml/min/1.73 sqM) Est GFR (CKD-EPI)NonAf (>60 ml/min/1.73 sqM) Glucose (74-99) mg/dL Calcium (8.4-10.2) mg/dL Total Bilirubin (0.2-1.3) mg/dL AST (14-36) U/L ALT (4-34) U/L Alkaline Phosphatase (38-126) U/L Total Protein (6.3-8.2) g/dL Albumin (3.5-5.0) g/dL Amylase (30-110) U/L Lipase (23-300) U/L TSH 3.560 (0.465-4.680) mIU/L Urine Color Urine Appearance (Clear) Urine pH (5.0-8.0) Ur Specific [place] (1.001-1.035) Urine Protein (Negative) Urine Glucose (UA) (Negative) Urine Ketones (Negative) Urine Blood (Negative) Urine Nitrite (Negative) Urine Bilirubin (Negative) Urine Urobilinogen (<2.0) mg/dL Ur Leukocyte Esterase (Negative) Disposition <Ochoa Bradley - Last Filed: 05/28/23 15:24> Is patient prescribed a controlled substance at d/c from ED?: No Time of Disposition: 17:30 <Amadou Cho - Last Filed: 05/28/23 17:56> Clinical Impression: Leukocytosis, unspecified, Chronic nausea Disposition: HOME SELF-CARE Condition: Stable Instructions (If sedation given, give patient instructions): Acute Nausea and Vomiting (DC), Leukocytosis (ED) Referrals: Raphael Calixto MD [STAFF PHYSICIAN] - 1-2 days Pito Prado MD [STAFF PHYSICIAN] - 1-2 days
[2023-05-28 14:29] LABS: RBC Morphology Normal
[2023-05-28 14:32] LABS: Appearance,Urine Clear (Clear); Bilirubin,Urine Negative (Negative); Blood,Urine Negative (Negative); Color,Urine Light Yellow; Glucose,Urine (UA) Negative (Negative); Ketones,Urine Negative (Negative); Leukocyte Esterase,Urine Negative (Negative); Nitrite,Urine Negative (Negative); PH, Urine 7.5 (5.0-8.0); Protein,Urine Negative (Negative); Specific Gravity,Urine 1.006 (1.001-1.035); Urobilinogen,Urine <2.0 mg/dL (<2.0)
[2023-05-28] MEDS ORDERED: ONDANSETRON 4 MG/2 ML VIAL IVP STA ×2 (14:42→17:14)
--- NOTE | 2023-05-28 17:30 | CT ---
EXAMINATION TYPE: CT abdomen pelvis w con DATE OF EXAM: 05/28/2023 COMPARISON: MRI 04/01/2023 INDICATION: nausea, weakness, h/o partial nephrectomy x3 weeks ago DLP: 1962.8 mGycm, Automated exposure control for dose reduction was used. CONTRAST: 100 mL of Isovue 300. Study performed without Oral Contrast TECHNIQUE: Axial images were obtained from above the diaphragm to the pubic rami in the axial plane a t 5 mm thick sections. Reconstructed images are reviewed on the computer in the coronal plane. FINDINGS: Limited CT sections are obtained the lung bases. The lung bases are clear. There is a 1.0 cm nodule within the right axillary tail. Correlation with mammography is recommended. CT ABDOMEN: Liver: Normal Spleen: Normal Pancreas: Normal Adrenal glands: The adrenal glands are normal. Gallbladder: Normal Kidneys: There is ill-defined increased density perinephric stranding at the inferior pole right kidn ey. This appears to correlate with the partial nephrectomy surgical history The superior is smaller t barba the 5.6 cm mass present previously on MRI. Findings could be related to postsurgical change. No h ydronephrosis is present. Small cortical renal cysts are present bilaterally. Delayed images were obtained through the kidneys, which remain unremarkable. Aorta: Vascular calcification is within the aorta. Inferior vena cava: Normal. CT PELVIS: Loops of bowel within the abdomen and pelvis are normal. There are loops of bowel which are incom pletely distended or lack oral contrast limiting their evaluation. Appendix: Partially visualized. No dilatation is evident. There are some mild inflammatory changes ne ar the distal portion of the appendix which track towards the kidney. Findings are likely related to the kidney findings although early appendicitis the distal appendix could be considered Urinary bladder: Normal. Genitourinary structures: Uterus and ovaries are not identified Osseous structures: No suspicious lytic or sclerotic lesions. No expansile lesions are evident. Facet degenerative changes are present. IMPRESSIONS: 1. There are perinephric inflammatory changes at the inferior pole right kidney. Correlate with gerardo ent's surgical history previous inferior pole right mass is not identified. Findings may be related t o postsurgical changes. 2. Appendix has a normal caliber although the tail of the pancreas has some involvement with mild inf lammatory changes. This appears to track from the kidney and is more likely postsurgical in nature. C linical management for any suspected appendicitis
[2023-05-28 18:21] VITALS: BP 112/81; PULSE 52
== END 2023-05-28 18:31 | disposition home or self-care (01) ==
LOC: EC 12:54
DX: D72.829 Elevated white blood cell count, unspecified (principal); G89.29 Other chronic pain; R11.0 Nausea; E11.9 Type 2 diabetes mellitus without complications; I10 Essential (primary) hypertension; F41.9 Anxiety disorder, unspecified; F17.200 Nicotine dependence, unspecified, uncomplicated; Z79.82 Long term (current) use of aspirin; Z79.84 Long term (current) use of oral hypoglycemic drugs; Z79.899 Other long term (current) drug therapy; Z88.2 Allergy status to sulfonamides; Z88.5 Allergy status to narcotic agent; Z88.8 Allergy status to other drugs, medicaments and biological substances
CPT/HCPCS: 36415; 80053; 84443; 82150; 83690; 85025; 81003; 87040; 87086; 74177; 99284; 96374; 96376; J2405; Q9967

== ENCOUNTER 2023-05-30 16:09 | Observation (INO) | payer BC ==
[2023-05-30] MEDS ORDERED: ONDANSETRON 4 MG/2 ML VIAL IVP STA (17:10)
--- NOTE | 2023-05-30 17:10 | ED ---
General Adult HPI - General Source: patient Mode of arrival: wheelchair Limitations: no limitations <Jatinder Keenan - Last Filed: 05/30/23 17:03> - General Source: RN notes reviewed, old records reviewed Mode of arrival: ambulatory Limitations: no limitations - History of Present Illness -: days(s) Location: abdomen Radiation: non-radiation Quality: dull Consistency: constant Improves with: none Worsens with: none Associated Symptoms: confusion, malaise, nausea/vomiting, weakness Treatments Prior to Arrival: none <Ochoa Maier - Last Filed: 05/30/23 22:53> - General Chief complaint: Nausea/Vomiting/Diarrhea Stated complaint: Vomiting/Abd pain - History of Present Illness Initial comments: 63 year old female s/p partial nephrectomy 3 weeks ago subsequently treated for UTI finished cipro yesterday, currently no urinary symptoms, presents to the ED due to fatigue. Patient seen for the similar symptoms 2 days ago. She states for the past few days has felt fatigued, a decreased appetite secondary to nausea no vomiting, and headache. At this time patient states headache is somwhat improved. However still notes continued nausea and fatigue. Also notes tingling into her fingers. Denies weakness. Denies chest pain (Jatinder Keenan) This is a 63-year-old female is a revisit this week for evaluation of weakness fatigue not feeling well feverish. 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 Patient was treated for urinary tract infection after that. Patient is no diarrhea no nausea vomiting no current headaches no abdominal pain chest pain shortness of breath abdominal pain. Patient states she just feels profoundly weak (Ochoa Maier) - Related Data Home Medications Medication Instructions Recorded Confirmed Aspirin 81 mg PO DAILY 09/16/15 05/30/23 Benazepril [Lotensin] 10 mg PO DAILY 05/07/23 05/30/23 Ondansetron [Zofran] 4 mg PO Q8HR PRN 05/07/23 05/30/23 amLODIPine [Norvasc] 5 mg PO DAILY 05/07/23 05/30/23 sitaGLIPtin PHOS/metFORMIN HCL 1 tab PO DAILY 05/07/23 05/30/23 [Janumet Xr 100-1,000 mg Tablet] ALPRAZolam [Xanax] 0.25 - 0.5 mg PO DAILY PRN 05/28/23 05/30/23 Triamterene/Hydrochlorothiazid 1 tab PO DAILY 05/28/23 05/30/23 [Triamterene-Hctz 37.5-25 mg Tb] Previous Rx's Medication Instructions Recorded traMADol HCl [Ultram] 50 mg PO Q6HR PRN 3 Days #10 tab 05/11/23 Allergies Allergy/AdvReac Type Severity Reaction Status Date / Time nickel Allergy Rash/Hives Verified 05/30/23 16:59 Sulfa (Sulfonamide Allergy Rash/Hives Verified 05/30/23 16:59 Antibiotics) codeine AdvReac Nausea & Verified 05/30/23 16:59 Vomiting & Diarrhea Review of Systems ROS Other: All systems not noted in ROS Statement are negative. <Jatinder Keenan - Last Filed: 05/30/23 17:03> ROS Other: All systems not noted in ROS Statement are negative. <Ochoa Maier - Last Filed: 05/30/23 22:53> ROS Statement: Those systems with pertinent positive or pertinent negative responses have been documented in the HPI. Past Medical History Past Medical History: Cancer, Diabetes Mellitus, Hypertension History of Any Multi-Drug Resistant Organisms: None Reported Past Surgical History: Section, Cholecystectomy, Hysterectomy, Joint Replacement Additional Past Surgical History / Comment(s): LEFT KNEE REPLACEMENT, partial right kidney Past Anesthesia/Blood Transfusion Reactions: No Reported Reaction Past Psychological History: Anxiety Smoking Status: Current every day smoker Past Alcohol Use History: Rare Past Drug Use History: None Reported - Past Family History Mother Family Medical History: No Reported History <Jatinder Keenan - Last Filed: 05/30/23 17:03> General Exam Limitations: no limitations <Jatinder Keenan - Last Filed: 05/30/23 17:03> General appearance: alert, in no apparent distress Head exam: Present: atraumatic, normocephalic, normal inspection Eye exam: Present: normal appearance, PERRL, EOMI. Absent: scleral icterus, conjunctival injection, periorbital swelling ENT exam: Present: normal exam, mucous membranes moist Neck exam: Present: normal inspection. Absent: tenderness, meningismus, lymphadenopathy Respiratory exam: Present: normal lung sounds bilaterally. Absent: respiratory distress, wheezes, rales, rhonchi, stridor Cardiovascular Exam: Present: regular rate, normal rhythm, normal heart sounds. Absent: systolic murmur, diastolic murmur, rubs, gallop, clicks GI/Abdominal exam: Present: soft, normal bowel sounds. Absent: distended, tenderness, guarding, rebound, rigid Extremities exam: Present: normal inspection, full ROM, normal capillary refill. Absent: tenderness, pedal edema, joint swelling, calf tenderness Back exam: Present: normal inspection Neurological exam: Present: alert, oriented X3, CN II-XII intact Psychiatric exam: Present: normal affect, normal mood Skin exam: Present: warm, dry, intact, normal color. Absent: rash <Ochoa Maier - Last Filed: 05/30/23 22:53> Course <Ochoa Maier - Last Filed: 05/30/23 22:53> Vital Signs 05/30/23 05/30/23 05/30/23 16:53 20:36 22:00 Temperature 98.6 F Pulse Rate 67 63 79 Respiratory 20 16 16 Rate Blood Pressure 119/76 149/77 127/77 O2 Sat by Pulse 97 97 98 Oximetry - Reevaluation(s) Reevaluation #1: 05/30/23 22:52 Medical records reviewed (Ochoa Maier) Reevaluation #2: 05/30/23 22:52 Patient symptoms unchanged (Ochoa Maier) Reevaluation #3: 05/30/23 22:52 Patient informed results questions answered (Ochoa Maier) Reevaluation #4: 05/30/23 20:40 Was pt. sent in by a medical professional or institution? @ -no Did you speak to anyone other than the patient for history? @ -no Did you review nursing and triage notes? @ -agree Were old charts reviewed? @ -yes Differential Diagnosis? @ -prior EKG interpreted by me (3pts min.)? @ -yes X-rays interpreted by me (1pt min.)? @ -yes CT interpreted by me (1pt min.)? @ -no U/S interpreted by me (1pt. min.)? @ -no What testing was considered but not performed? (CT, X-rays, U/S, labs)? Why? @ -no What meds were considered but not given? Why? @ -no Did you discuss the management of the patient with other professionals? @ -no Did you reconcile home meds? @ -no Was smoking cessation discussed for >3mins.? @ -no Was critical care preformed (if so, how long)? @ -no Were there social determinants of health that impacted care today? How? (Homelessness, low income, unemployed, alcoholism, drug addiction, transportation, low edu. Level, literacy, decrease access to med. care, senior living, rehab)? @ -no Was there de-escalation of care discussed even if they declined? (Discuss DNR or withdrawal of care, Hospice)? @ -no What co-morbidities impacted this encounter? (DM, HTN, Smoking, COPD, CAD, Cancer, CVA, Hep., AIDS, mental health diagnosis, sleep apnea, morbid obesity)? @ -none Was patient admitted / discharged? @ - Undiagnosed new problem with uncertain prognosis? @ -no Drug Therapy requiring intensive monitoring for toxicity (Heparin, Nitro, Insulin, Cardizem)? @ -no Were any procedures done? @ -no Diagnosis/symptom? @ - Acute, or Chronic, or Acute on Chronic? @ -acute Uncomplicated (without systemic symptoms) or Complicated (systemic symptoms)? @ -complicated Side effects of treatment? @ -no Exacerbation, Progression, or Severe Exacerbation] @ -no Poses a threat to life or bodily function? @ -yes (Ochoa Maier) - Consultations Consultation #1: Spoke with sound who agrees to admit this patient (Ochoa Maier) Medical Decision Making - Lab Data Result diagrams: 05/30/23 17:32 05/30/23 17:32 - Radiology Data Radiology results: report reviewed (CT head and pelvis show some stranding around kidneys, chest x-rays negative for acute disease), image reviewed <Ochoa Maier - Last Filed: 05/30/23 22:53> - Medical Decision Making 63 female [place] for IV antibiotics secondary to possible pyelonephritis postoperative infection with the severely elevated white blood cells weakness not feeling well. (Ochoa Maier) - Lab Data Lab Results 05/30/23 05/30/23 05/30/23 Range/Units 17:32 17:32 20:20 WBC 19.5 H (3.8-10.6) k/uL RBC 5.64 H (3.80-5.40) m/uL Hgb 16.9 H (11.4-16.0) gm/dL Hct 50.3 H (34.0-46.0) % MCV 89.3 (80.0-100.0) fL MCH 30.0 (25.0-35.0) pg MCHC 33.7 (31.0-37.0) g/dL RDW 12.9 (11.5-15.5) % Plt Count 397 (150-450) k/uL MPV 8.2 Neutrophils % 58 % Lymphocytes % 25 % Monocytes % 5 % Eosinophils % 10 % Basophils % 1 % Neutrophils # 11.3 H (1.3-7.7) k/uL Lymphocytes # 4.9 H (1.0-4.8) k/uL Monocytes # 1.0 (0-1.0) k/uL Eosinophils # 2.0 H (0-0.7) k/uL Basophils # 0.1 (0-0.2) k/uL Sodium 130 L (137-145) mmol/L Potassium 4.2 (3.5-5.1) mmol/L Chloride 91 L (98-107) mmol/L Carbon Dioxide 28 (22-30) mmol/L Anion Gap 11 mmol/L BUN 10 (7-17) mg/dL Creatinine 0.75 (0.52-1.04) mg/dL Est GFR (CKD-EPI)AfAm >90 (>60 ml/min/1.73 sqM) Est GFR (CKD-EPI)NonAf 85 (>60 ml/min/1.73 sqM) Glucose 113 H (74-99) mg/dL Calcium 10.3 H (8.4-10.2) mg/dL Total Bilirubin 0.6 (0.2-1.3) mg/dL AST 29 (14-36) U/L ALT 25 (4-34) U/L Alkaline Phosphatase 61 (38-126) U/L Total Protein 8.3 H (6.3-8.2) g/dL Albumin 4.8 (3.5-5.0) g/dL Amylase 88 (30-110) U/L Lipase 355 H (23-300) U/L Urine Color Yellow Urine Appearance Clear (Clear) Urine pH 6.0 (5.0-8.0) Ur Specific [place] 1.014 (1.001-1.035) Urine Protein Negative (Negative) Urine Glucose (UA) Negative (Negative) Urine Ketones Negative (Negative) Urine Blood Negative (Negative) Urine Nitrite Negative (Negative) Urine Bilirubin Negative (Negative) Urine Urobilinogen <2.0 (<2.0) mg/dL Ur Leukocyte Esterase Negative (Negative) Influenza Type A (PCR) (Not Detectd) Influenza Type B (PCR) (Not Detectd) RSV (PCR) (Not Detectd) SARS-CoV-2 (PCR) (Not Detectd) 05/30/23 Range/Units 20:56 WBC (3.8-10.6) k/uL RBC (3.80-5.40) m/uL Hgb (11.4-16.0) gm/dL Hct (34.0-46.0) % MCV (80.0-100.0) fL MCH (25.0-35.0) pg MCHC (31.0-37.0) g/dL RDW (11.5-15.5) % Plt Count (150-450) k/uL MPV Neutrophils % % Lymphocytes % % Monocytes % % Eosinophils % % Basophils % % Neutrophils # (1.3-7.7) k/uL Lymphocytes # (1.0-4.8) k/uL Monocytes # (0-1.0) k/uL Eosinophils # (0-0.7) k/uL Basophils # (0-0.2) k/uL Sodium (137-145) mmol/L Potassium (3.5-5.1) mmol/L Chloride (98-107) mmol/L Carbon Dioxide (22-30) mmol/L Anion Gap mmol/L BUN (7-17) mg/dL Creatinine (0.52-1.04) mg/dL Est GFR (CKD-EPI)AfAm (>60 ml/min/1.73 sqM) Est GFR (CKD-EPI)NonAf (>60 ml/min/1.73 sqM) Glucose (74-99) mg/dL Calcium (8.4-10.2) mg/dL Total Bilirubin (0.2-1.3) mg/dL AST (14-36) U/L ALT (4-34) U/L Alkaline Phosphatase (38-126) U/L Total Protein (6.3-8.2) g/dL Albumin (3.5-5.0) g/dL Amylase (30-110) U/L Lipase (23-300) U/L Urine Color Urine Appearance (Clear) Urine pH (5.0-8.0) Ur Specific [place] (1.001-1.035) Urine Protein (Negative) Urine Glucose (UA) (Negative) Urine Ketones (Negative) Urine Blood (Negative) Urine Nitrite (Negative) Urine Bilirubin (Negative) Urine Urobilinogen (<2.0) mg/dL Ur Leukocyte Esterase (Negative) Influenza Type A (PCR) Not Detected (Not Detectd) Influenza Type B (PCR) Not Detected (Not Detectd) RSV (PCR) Not Detected (Not Detectd) SARS-CoV-2 (PCR) Not Detected (Not Detectd) Disposition <Jatinder Keenan - Last Filed: 05/30/23 17:03> Is patient prescribed a controlled substance at d/c from ED?: No Time of Disposition: 22:50 <Ochoa Maier - Last Filed: 05/30/23 22:53> Clinical Impression: Dehydration, Gastroenteritis, Leukocytosis, Weakness Disposition: ADMITTED IP TO THIS HOSP Condition: Serious Referrals: Wade Garcia MD [Primary Care Provider] - 1-2 days
[2023-05-30 17:52] LABS: Basophils # (A) 0.1 k/uL (0-0.2); Basophils % (A) 1 %; Eosinophils % (A) 10 %; HCT 50.3 % (34.0-46.0); HGB 16.9 gm/dL (11.4-16.0); Lymphocytes # (A) 4.9 k/uL (1.0-4.8); Lymphocytes % (A) 25 %; MCHC 33.7 g/dL (31.0-37.0); MCV 89.3 fL (80.0-100.0); Mean Platelet Volume 8.2; Monocytes % (A) 5 %; Neutrophils # (A) 11.3 k/uL (1.3-7.7); Neutrophils % (A) 58 %; Platelet Count 397 k/uL (150-450); RBC 5.64 m/uL (3.80-5.40); RDW 12.9 % (11.5-15.5); WBC 19.5 k/uL (3.8-10.6)
[2023-05-30 18:01] LABS: ALT 25 U/L (4-34); AST 29 U/L (14-36); African American GFR (CKD) >90 (>60 ml/min/1.73 sqM); Albumin 4.8 g/dL (3.5-5.0); Alkaline Phosphatase 61 U/L (38-126); Amylase 88 U/L (30-110); Anion Gap 11 mmol/L; Blood Urea Nitrogen 10 mg/dL (7-17); Calcium 10.3 mg/dL (8.4-10.2); Carbon Dioxide 28 mmol/L (22-30); Chloride 91 mmol/L (98-107); Glucose 113 mg/dL (74-99); Lipase 355 U/L (23-300); Non-African American GFR(CKD) 85 (>60 ml/min/1.73 sqM); Potassium 4.2 mmol/L (3.5-5.1); Sodium 130 mmol/L (137-145); Total Bilirubin 0.6 mg/dL (0.2-1.3); Total Protein 8.3 g/dL (6.3-8.2)
[2023-05-30 20:33] LABS: Appearance,Urine Clear (Clear); Bilirubin,Urine Negative (Negative); Blood,Urine Negative (Negative); Color,Urine Yellow; Glucose,Urine (UA) Negative (Negative); Ketones,Urine Negative (Negative); Leukocyte Esterase,Urine Negative (Negative); Nitrite,Urine Negative (Negative); Protein,Urine Negative (Negative); Specific Gravity,Urine 1.014 (1.001-1.035); Urobilinogen,Urine <2.0 mg/dL (<2.0)
[2023-05-30] MEDS ORDERED: SODIUM CHLORIDE 0.9% 1,000 ML IV STA ×2 (20:39→22:47)
[2023-05-30] MEDS ORDERED: SODIUM CHLORIDE 0.9% 500 ML 500 ML IV STA (20:39)
--- NOTE | 2023-05-30 21:07 | XR ---
EXAMINATION TYPE: XR chest 1V portable DATE OF EXAM: 05/30/2023 8:54 PM COMPARISON: CT chest 04/15/2023 TECHNIQUE: XR chest 1V portable . CLINICAL INDICATION:Female, 63 years old with history of pain; FINDINGS: Lungs/Pleura: There is no evidence of pleural effusion, focal consolidation, or pneumothorax. Pulmonary vascularity: Unremarkable. Heart/mediastinum: Cardiomediastinal silhouette is unremarkable. Musculoskeletal: No acute osseous pathology. IMPRESSION: No acute cardiopulmonary disease/process.
--- NOTE | 2023-05-30 21:45 | CT ---
EXAMINATION TYPE: CT abdomen pelvis wo con CT DLP: 1022.4 mGycm, Automated exposure control for dose reduction was used. DATE OF EXAM: 05/30/2023 9:25 PM COMPARISON: CT abdomen pelvis 05/28/2023 CLINICAL INDICATION:Female, 63 years old with history of pain; Recent nephrectomy, nausea and abdomin al pain TECHNIQUE: Axial CT of the abdomen and pelvis. Sagittal and coronal reformats were created on a [employer] workstation. Contrast used: None. Oral contrast used: without Oral Contrast FINDINGS: LOWER CHEST: Unremarkable ABDOMEN LIVER: Unremarkable GALLBLADDER AND BILE DUCTS: The gallbladder is surgically absent. PANCREAS: Unremarkable. SPLEEN: Unremarkable. ADRENAL GLANDS: Unremarkable. KIDNEYS AND URETERS: Pronounced right perinephric fat stranding and ill-defined hyperdense fluid kerrie g the right lower pole (series 202, image 48). Volume of which has intervally progressed from most re cent CT of 05/28/2023 now measuring up to 5.3 cm. Right kidney is diffusely hypoattenuating when compar ed to last and given limitations of noncontrasted technique. No right hydronephrosis. Left kidney is unremarkable. PELVIS BLADDER: Incompletely distended but grossly unremarkable. REPRODUCTIVE: Unremarkable. ABDOMEN & PELVIS STOMACH AND BOWEL: Stomach and duodenum are unremarkable. No evidence of bowel obstruction. Appendix is visualized and is nondilated. The appendix continues to track along infiltrate changes associated with the right anterior renal fascia. PERITONEUM: No pneumoperitoneum. No sizable free fluid. Moderate perinephric and paranephric inflamma tory changes. VASCULATURE: Moderate atherosclerotic calcifications are present throughout the abdominal aorta and i ts branches. No evidence of aortic aneurysm. MUSCULOSKELETAL: No acute osseous abnormalities LYMPH NODES: No gross evidence for lymphadenopathy. SOFT TISSUE/ABDOMINAL WALL: Rectus diastases. Subcentimeter fat-containing umbilical hernia. Linear f at stranding along the right anterior abdominal wall, likely postsurgical. IMPRESSION: 1. Minimal progression of ill-defined fluid and perinephric inflammatory changes involving the right lower pole at the site of recent partial nephrectomy, findings are likely postsurgical. Continued nory rt interval follow-up is recommended. 2. Nondilated appendix continues to approximate right perinephric inflammatory changes without second ector findings to suggest acute appendicitis.
[2023-05-30] MEDS ORDERED: KETOROLAC 15 MG/ML 1 ML VIAL IVP STA (22:47)
[2023-05-30] MEDS ORDERED: MORPHINE SULFATE 4 MG/ML SYRINGE IV PRN (22:48)
[2023-05-30] MEDS ORDERED: ONDANSETRON 4 MG/2 ML VIAL IVP PRN (22:48)
[2023-05-30] MEDS ORDERED: NALOXONE 0.4 MG/ML 1 ML VIAL IV PRN (22:48)
[2023-05-30] MEDS ORDERED: ACETAMINOPHEN TAB 325 MG TAB PO PRN (22:48)
[2023-05-30] MEDS ORDERED: IBUPROFEN 400 MG TAB PO PRN (22:48)
[2023-05-30] MEDS: SODIUM CHLORIDE 0.9% 1,000 ML IV SCH (22:59)
--- NOTE | 2023-05-31 01:03 | P.HPIM ---
History of Present Illness H&P Date: 05/31/23 Patient is a 63-year-old female with a PMH of recent nephrectomy 3 weeks ago for a mass, hypertension, and type II DM who presents to the emergency room for fatigue and overall feeling unwell. The patient reports that roughly a week after her procedure, she was seen at her PCPs office and was started on Keflex for UTI. She reports that she continued to feel unwell, and was seen again and was switched to ciprofloxacin, the course of which she completed 2 days ago. She reports however that her symptoms have persisted despite the 2 courses of antibiotics for a documented UTI. She reports overall feeling ill with little to no energy and poor appetite. She denied experiencing chest discomfort, shortness of breath, fever, cough, abdominal pain, diarrhea. She reports feeling significantly better after having received IV fluids in the emergency room. In the emergency room a CT abdomen and pelvis without contrast revealed postsurgical changes with an unremarkable appendix. Chest x-ray was unremarkable. Laboratory evaluation was remarkable for leukocytosis of 19.5, hemoglobin 16.9, sodium 130, chloride 91, calcium 10.3, lipase 355, and an unremarkable UA. ED documentation reviewed and case discussed with ED provider. Review of systems: Pertinent positives and negatives as discussed in HPI, a complete review of systems was performed and all other systems are negative. Physical examination: Vital signs reviewed General: non toxic, no distress, appears at stated age, obese Derm: no unusual rashes/lesions, warm Head: atraumatic, normocephalic, symmetric Eyes: EOMI, no lid lag, anicteric sclera, pupils equal round reactive to light ENT: Nose and ears atraumatic Neck: No cervical lymphadenopathy, trachea midline, supple Mouth: no lip lesion, mucus membranes moist Cardiovascular: S1S2 reg, no murmur, positive dorsalis pedis pulse bilateral, no edema Lungs: CTA bilateral, no rhonchi, no rales, no accessory muscle use Abdominal: soft, nontender to palpation, no guarding Ext: muscle strength 5 out of 5 in all 4 extremities grossly, no gross muscle atrophy, no contractures, Neuro: CN II-XI grossly intact, no gross focal neuro deficits Psych: Alert, oriented, appropriate affect Assessment: Persistent leukocytosis with fatigue Hypochloremic hyponatremia, suspect due to poor oral intake with diuretic use Chronic conditions: Hypertension, type II DM Imaging: In the emergency room a CT abdomen and pelvis without contrast revealed postsurgical changes with an unremarkable appendix. Chest x-ray was unremarkable. Data Review: Laboratory evaluation was remarkable for leukocytosis of 19.5, hemoglobin 16.9, sodium 130, chloride 91, calcium 10.3, lipase 355, and an unremarkable UA. Plan: The patient reports that she has had persistent leukocytosis for the past several months, for which she is following with Dr. Kimball who has been consulted Continue with IV fluids Continue to monitor BMP Hold home diuretics at this time DVT prophylaxis: Heparin subq The patient is admitted with an anticipated greater than 2 midnight stay for evaluation of leukocytosis CODE STATUS: Full Code Discussed with: Patient Anticipated discharge place: Home Past Medical History Past Medical History: Cancer, Diabetes Mellitus, Hypertension History of Any Multi-Drug Resistant Organisms: None Reported Past Surgical History: Section, Cholecystectomy, Hysterectomy, Joint Re placement Additional Past Surgical History / Comment(s): LEFT KNEE REPLACEMENT, partial right nephrectomy Past Anesthesia/Blood Transfusion Reactions: No Reported Reaction Past Psychological History: Anxiety Smoking Status: Current every day smoker Past Alcohol Use History: Rare Past Drug Use History: None Reported - Past Family History Mother Family Medical History: Hypertension Medications and Allergies Home Medications Medication Instructions Recorded Confirmed Type Aspirin 81 mg PO DAILY 09/16/15 05/30/23 History Benazepril [Lotensin] 10 mg PO DAILY 05/07/23 05/30/23 History Ondansetron [Zofran] 4 mg PO Q8HR PRN 05/07/23 05/30/23 History amLODIPine [Norvasc] 5 mg PO DAILY 05/07/23 05/30/23 History sitaGLIPtin PHOS/metFORMIN HCL 1 tab PO DAILY 05/07/23 05/30/23 History [Janumet Xr 100-1,000 mg Tablet] traMADol HCl [Ultram] 50 mg PO Q6HR PRN 3 Days #10 tab 05/11/23 05/30/23 Rx ALPRAZolam [Xanax] 0.25 - 0.5 mg PO DAILY PRN 05/28/23 05/30/23 History Triamterene/Hydrochlorothiazid 1 tab PO DAILY 05/28/23 05/30/23 History [Triamterene-Hctz 37.5-25 mg Tb] Allergies Allergy/AdvReac Type Severity Reaction Status Date / Time nickel Allergy Rash/Hives Verified 05/30/23 16:59 Sulfa (Sulfonamide Allergy Rash/Hives Verified 05/30/23 16:59 Antibiotics) codeine AdvReac Nausea & Verified 05/30/23 16:59 Vomiting & Diarrhea Physical Exam Vitals: Vital Signs Temp Pulse Pulse Resp BP BP Pulse Ox 05/31/23 00:15 97.8 F 61 17 118/75 100 05/30/23 23:31 57 L 16 127/71 97 05/30/23 22:00 79 16 127/77 98 05/30/23 20:36 63 16 149/77 97 05/30/23 16:53 98.6 F 67 20 119/76 97 Intake and Output 05/30/23 05/30/23 05/31/23 14:59 22:59 06:59 Other: Weight 104.326 kg 104.326 kg Results CBC & Chem 7: 05/30/23 17:32 05/30/23 17:32 Labs: Abnormal Lab Results - Last 24 Hours (Table) 05/30/23 05/30/23 Range/Units 17:32 17:32 WBC 19.5 H (3.8-10.6) k/uL RBC 5.64 H (3.80-5.40) m/uL Hgb 16.9 H (11.4-16.0) gm/dL Hct 50.3 H (34.0-46.0) % Neutrophils # 11.3 H (1.3-7.7) k/uL Lymphocytes # 4.9 H (1.0-4.8) k/uL Eosinophils # 2.0 H (0-0.7) k/uL Sodium 130 L (137-145) mmol/L Chloride 91 L (98-107) mmol/L Glucose 113 H (74-99) mg/dL Calcium 10.3 H (8.4-10.2) mg/dL Total Protein 8.3 H (6.3-8.2) g/dL Lipase 355 H (23-300) U/L Thrombosis Risk Factor Assmnt - Choose All That Apply Any of the Below Risk Factors Present?: Yes Each Factor Represents 1 point: Age 41-60 years Other Risk Factors: No Other congenital or acquired thrombophilia - If yes, enter type in comment: No Thrombosis Risk Factor Assessment Total Risk Factor Score: 1 Thrombosis Risk Factor Assessment Level: Low Risk
[2023-05-31] MEDS ORDERED: traMADol 50 MG TAB PO PRN (02:00)
[2023-05-31 04:43] LABS: Basophils # (A) 0.1 k/uL (0-0.2); Basophils % (A) 0 %; Eosinophils # (A) 2.2 k/uL (0-0.7); Eosinophils % (A) 14 %; HCT 39.2 % (34.0-46.0); Lymphocytes # (A) 4.9 k/uL (1.0-4.8); Lymphocytes % (A) 31 %; MCH 29.7 pg (25.0-35.0); MCHC 33.6 g/dL (31.0-37.0); MCV 88.3 fL (80.0-100.0); Mean Platelet Volume 8.4; Monocytes % (A) 6 %; Neutrophils # (A) 7.4 k/uL (1.3-7.7); Neutrophils % (A) 47 %; Platelet Count 279 k/uL (150-450); RBC 4.44 m/uL (3.80-5.40); RDW 13.2 % (11.5-15.5)
[2023-05-31 05:09] LABS: Albumin 3.1 g/dL (3.5-5.0)
[2023-05-31 05:11] LABS: ALT 18 U/L (4-34); AST 19 U/L (14-36); African American GFR (CKD) >90 (>60 ml/min/1.73 sqM); Alkaline Phosphatase 43 U/L (38-126); Anion Gap 6 mmol/L; Blood Urea Nitrogen 10 mg/dL (7-17); Calcium 8.3 mg/dL (8.4-10.2); Carbon Dioxide 27 mmol/L (22-30); Chloride 97 mmol/L (98-107); Glucose 80 mg/dL (74-99); Magnesium 1.7 mg/dL (1.6-2.3); Non-African American GFR(CKD) 81 (>60 ml/min/1.73 sqM); Phosphorus 3.7 mg/dL (2.5-4.5); Potassium 3.7 mmol/L (3.5-5.1); Sodium 130 mmol/L (137-145); Total Bilirubin 0.3 mg/dL (0.2-1.3); Total Protein 6.6 g/dL (6.3-8.2)
[2023-05-31 05:27] LABS: HGB 13.2 gm/dL (11.4-16.0)
[2023-05-31 06:10] LABS: Glucose,Whole Blood 97 mg/dL (70-110)
[2023-05-31] MEDS: SODIUM CHLORIDE 0.9% 1,000 ML IV SCH ×2 (06:15→14:13)
[2023-05-31] MEDS: INSULIN ASPART (NovoLOG) 100 UNIT/ML VIAL SQ SCH ×4 (06:19→21:37)
--- NOTE | 2023-05-31 07:51 | P.GSCN ---
History of Present Illness Consult date: 05/31/23 History of present illness: 63 yo female who underwent a right partial nephretomy by dr Toro about two weeks ago for ca kidney. She has been feeling poorly in the last week She was treated with ab, keflex and then cipro. She came to the hospital because she continues to feel poorly. She was found to have a phlegmon at the surgical site. Her wbc were elevated at 19.5. It is down to 16 k this am. Her chest xray is clear as is her urine. She apparently had an elevated white count before her surgical procedure and is following with Dr. Herman for this. He did and indeed feel well after the first week but now feels poorly. Review of Systems All systems: negative - Constitutional Denies fever, Denies weight loss - EENT Eyes: denies blurred vision Ears, nose, mouth and throat: Denies dysphagia - Cardiovascular Denies chest pain, Denies shortness of breath - Respiratory Denies cough, Denies 7 - Gastrointestinal Reports as per HPI - Genitourinary Genitourinary: Denies dysuria, Denies hematuria - Integumentary Denies rash, Denies unusual bruising - Neurological Denies headaches, Denies syncope - Hematologic/Lymphatic Denies easy bleeding, Denies easy bruising Past Medical History Past Medical History: Cancer, Diabetes Mellitus, Hypertension History of Any Multi-Drug Resistant Organisms: None Reported Past Surgical History: Section, Cholecystectomy, Hysterectomy, Joint Replacement Additional Past Surgical History / Comment(s): LEFT KNEE REPLACEMENT, partial right nephrectomy Past Anesthesia/Blood Transfusion Reactions: No Reported Reaction Past Psychological History: Anxiety Smoking Status: Current every day smoker Past Alcohol Use History: Rare Past Drug Use History: None Reported - Past Family History Mother Family Medical History: Hypertension Medications and Allergies Home Medications Medication Instructions Recorded Confirmed Type Aspirin 81 mg PO DAILY 09/16/15 05/30/23 History Benazepril [Lotensin] 10 mg PO DAILY 05/07/23 05/30/23 History Ondansetron [Zofran] 4 mg PO Q8HR PRN 05/07/23 05/30/23 History amLODIPine [Norvasc] 5 mg PO DAILY 05/07/23 05/30/23 History sitaGLIPtin PHOS/metFORMIN HCL 1 tab PO DAILY 05/07/23 05/30/23 History [Janumet Xr 100-1,000 mg Tablet] traMADol HCl [Ultram] 50 mg PO Q6HR PRN 3 Days #10 tab 05/11/23 05/30/23 Rx ALPRAZolam [Xanax] 0.25 - 0.5 mg PO DAILY PRN 05/28/23 05/30/23 History Triamterene/Hydrochlorothiazid 1 tab PO DAILY 05/28/23 05/30/23 History [Triamterene-Hctz 37.5-25 mg Tb] Allergies Allergy/AdvReac Type Severity Reaction Status Date / Time nickel Allergy Rash/Hives Verified 05/30/23 16:59 Sulfa (Sulfonamide Allergy Rash/Hives Verified 05/30/23 16:59 Antibiotics) codeine AdvReac Nausea & Verified 05/30/23 16:59 Vomiting & Diarrhea Surgical - Exam Vital Signs Temp Pulse Resp BP Pulse Ox 98.6 F 67 20 119/76 97 05/30/23 16:53 05/30/23 16:53 05/30/23 16:53 05/30/23 16:53 05/30/23 16:53 - General well developed, well nourished, no distress - Eyes PERRL - ENT no hearing loss - Neck trachea midline - Respiratory normal expansion - Cardiovascular Rhythm: regular - Abdomen Abdomen: soft, non tender - Neurologic normal sensation - Musculoskeletal normal posture - Psychiatric oriented to time, oriented to person, oriented to place, speech is normal, memory intact Results - Labs 05/31/23 03:42 05/31/23 03:42 Abnormal Lab Results - Last 24 Hours (Table) 05/30/23 05/30/23 05/31/23 Range/Units 17:32 17:32 03:42 WBC 19.5 H 16.0 H (3.8-10.6) k/uL RBC 5.64 H (3.80-5.40) m/uL Hgb 16.9 H (11.4-16.0) gm/dL Hct 50.3 H (34.0-46.0) % Neutrophils # 11.3 H (1.3-7.7) k/uL Lymphocytes # 4.9 H 4.9 H (1.0-4.8) k/uL Eosinophils # 2.0 H 2.2 H (0-0.7) k/uL Sodium 130 L (137-145) mmol/L Chloride 91 L (98-107) mmol/L Glucose 113 H (74-99) mg/dL Calcium 10.3 H (8.4-10.2) mg/dL Total Protein 8.3 H (6.3-8.2) g/dL Albumin (3.5-5.0) g/dL Lipase 355 H (23-300) U/L 05/31/23 Range/Units 03:42 WBC (3.8-10.6) k/uL RBC (3.80-5.40) m/uL Hgb (11.4-16.0) gm/dL Hct (34.0-46.0) % Neutrophils # (1.3-7.7) k/uL Lymphocytes # (1.0-4.8) k/uL Eosinophils # (0-0.7) k/uL Sodium 130 L (137-145) mmol/L Chloride 97 L (98-107) mmol/L Glucose (74-99) mg/dL Calcium 8.3 L (8.4-10.2) mg/dL Total Protein (6.3-8.2) g/dL Albumin 3.1 L (3.5-5.0) g/dL Lipase (23-300) U/L Diabetes panel 05/30/23 05/31/23 Range/Units 17:32 03:42 Sodium 130 L 130 L (137-145) mmol/L Potassium 4.2 3.7 (3.5-5.1) mmol/L Chloride 91 L 97 L (98-107) mmol/L Carbon Dioxide 28 27 (22-30) mmol/L BUN 10 10 (7-17) mg/dL Creatinine 0.75 0.78 (0.52-1.04) mg/dL Glucose 113 H 80 (74-99) mg/dL Calcium 10.3 H 8.3 L (8.4-10.2) mg/dL AST 29 19 (14-36) U/L ALT 25 18 (4-34) U/L Alkaline Phosphatase 61 43 (38-126) U/L Total Protein 8.3 H 6.6 (6.3-8.2) g/dL Albumin 4.8 3.1 L (3.5-5.0) g/dL Calcium panel 05/30/23 05/31/23 Range/Units 17:32 03:42 Calcium 10.3 H 8.3 L (8.4-10.2) mg/dL Phosphorus 3.7 (2.5-4.5) mg/dL Albumin 4.8 3.1 L (3.5-5.0) g/dL Pituitary panel 05/30/23 05/31/23 Range/Units 17:32 03:42 Sodium 130 L 130 L (137-145) mmol/L Potassium 4.2 3.7 (3.5-5.1) mmol/L Chloride 91 L 97 L (98-107) mmol/L Carbon Dioxide 28 27 (22-30) mmol/L BUN 10 10 (7-17) mg/dL Creatinine 0.75 0.78 (0.52-1.04) mg/dL Glucose 113 H 80 (74-99) mg/dL Calcium 10.3 H 8.3 L (8.4-10.2) mg/dL Adrenal panel 05/30/23 05/31/23 Range/Units 17:32 03:42 Sodium 130 L 130 L (137-145) mmol/L Potassium 4.2 3.7 (3.5-5.1) mmol/L Chloride 91 L 97 L (98-107) mmol/L Carbon Dioxide 28 27 (22-30) mmol/L BUN 10 10 (7-17) mg/dL Creatinine 0.75 0.78 (0.52-1.04) mg/dL Glucose 113 H 80 (74-99) mg/dL Calcium 10.3 H 8.3 L (8.4-10.2) mg/dL Total Bilirubin 0.6 0.3 (0.2-1.3) mg/dL AST 29 19 (14-36) U/L ALT 25 18 (4-34) U/L Alkaline Phosphatase 61 43 (38-126) U/L Total Protein 8.3 H 6.6 (6.3-8.2) g/dL Albumin 4.8 3.1 L (3.5-5.0) g/dL - Imaging CT scan - abdomen: report reviewed, image reviewed CT scan - pelvis: report reviewed, image reviewed Assessment and Plan Assessment: Impression: Postoperative nausea and discomfort. Elevated white count acute versus chronic. That is post partial nephrectomy for kidney cancer right. Recommendations: From a urologic standpoint it is indeterminate whether the phl egmon in the surgical bed is other than a normal postoperative appearance. The elevated white count may be chronic rather than acute. She had a white count in the teens at all times preoperatively. She does not appear acutely ill but states that she doesn't feel well. I have oh recommendations immediately at this point in time, we will follow.
[2023-05-31] MEDS ORDERED: lisinopriL 10 MG TAB PO SCH (09:00)
[2023-05-31] MEDS ORDERED: amLODIPine 5 MG TAB PO SCH (09:00)
[2023-05-31] MEDS: HEPARIN SODIUM,PORCINE/PF 5,000 UNIT/0.5 ML SYRINGE SQ SCH ×3 (09:41→23:56)
[2023-05-31] MEDS: ASPIRIN 81 MG PO SCH (09:42)
[2023-05-31] MEDS: PANTOPRAZOLE 40 MG/10 ML VIAL IV SCH (09:42)
[2023-05-31 11:21] LABS: Glucose,Whole Blood 111 mg/dL (70-110)
--- NOTE | 2023-05-31 15:53 | P.CONS ---
History of Present Illness - Reason for Consult Consult date: 05/31/23 leukocytosis, renal cell cancer - History of Present Illness the patient is a 63-year-old white female, recently seen by Dr. Prado, last month, for elevated WBC. The patient at that time had a known diagnosis of right renal cell carcinoma, and was being prepped for surgery. Her differential showed predominant neutrophilia, with overall mild leukocytosis. The patient had workup for myeloproliferative neoplasm, which was negative. It is felt that the elevated WBC was most likely reactive due to her smoking, and possibly the underlying malignancy. She was therefore cleared for surgery. The patient had partial nephrectomy on 05/09/23. Postsurgery she has again been feeling poorly. Symptoms appear to be mostly some weakness, and generalized malaise, nausea with possibly some intermittent right-sided abdomin al pain. The patient had 2 courses of outpatient antibiotics without much improvement. He therefore came into the emergency room, and had CT scans done which indicated possibility of phlegmon at the surgical site. The patient was started on IV fluids and antibiotics and seen by urology. Her WBC on admission was 19.5 with improvement to 16,000. Differential shows predominant neutrophilia with mildly elevated lymphocytes which are however less than 5000. Her pathology specimen had shown a T1b tumor, NX, grade 2. Review of Systems Constitutional: Reports malaise, Reports poor appetite, Reports weakness Eyes: denies blurred vision, denies pain Ears: deny: decreased hearing, ear discharge, earache, tinnitus Ears, nose, mouth and throat: Denies headache, Denies sore throat Cardiovascular: Denies chest pain, Denies shortness of breath Respiratory: Denies cough Gastrointestinal: Reports abdominal pain Genitourinary: Reports as per HPI Menstruation: Reports postmenopausal Musculoskeletal: Denies myalgias Integumentary: Denies pruritus, Denies rash Neurological: Reports weakness Psychiatric: Denies anxiety, Denies depression Endocrine: Reports fatigue Hematologic/Lymphatic: Reports as per HPI Past Medical History Past Medical History: Cancer, Diabetes Mellitus, Hypertension History of Any Multi-Drug Resistant Organisms: None Reported Past Surgical History: Section, Cholecystectomy, Hysterectomy, Joint Replacement Additional Past Surgical History / Comment(s): LEFT KNEE REPLACEMENT, partial right nephrectomy Past Anesthesia/Blood Transfusion Reactions: No Reported Reaction Past Psychological History: Anxiety Smoking Status: Current every day smoker Past Alcohol Use History: Rare Past Drug Use History: None Reported - Past Family History Mother Family Medical History: Hypertension Medications and Allergies Home Medications Medication Instructions Recorded Confirmed Type Aspirin 81 mg PO DAILY 09/16/15 05/30/23 History Benazepril [Lotensin] 10 mg PO DAILY 05/07/23 05/30/23 History Ondansetron [Zofran] 4 mg PO Q8HR PRN 05/07/23 05/30/23 History amLODIPine [Norvasc] 5 mg PO DAILY 05/07/23 05/30/23 History sitaGLIPtin PHOS/metFORMIN HCL 1 tab PO DAILY 05/07/23 05/30/23 History [Janumet Xr 100-1,000 mg Tablet] traMADol HCl [Ultram] 50 mg PO Q6HR PRN 3 Days #10 tab 05/11/23 05/30/23 Rx ALPRAZolam [Xanax] 0.25 - 0.5 mg PO DAILY PRN 05/28/23 05/30/23 History Triamterene/Hydrochlorothiazid 1 tab PO DAILY 05/28/23 05/30/23 History [Triamterene-Hctz 37.5-25 mg Tb] Allergies Allergy/AdvReac Type Severity Reaction Status Date / Time nickel Allergy Rash/Hives Verified 05/30/23 16:59 Sulfa (Sulfonamide Allergy Rash/Hives Verified 05/30/23 16:59 Antibiotics) codeine AdvReac Nausea & Verified 05/30/23 16:59 Vomiting & Diarrhea Physical Exam Vitals: Vital Signs Temp Pulse Pulse Resp BP BP Pulse Ox 05/31/23 07:02 97.8 F 59 L 18 112/73 94 L 05/31/23 02:12 13 05/31/23 00:15 97.8 F 61 17 118/75 100 05/30/23 23:31 57 L 16 127/71 97 05/30/23 22:00 79 16 127/77 98 05/30/23 20:36 63 16 149/77 97 05/30/23 16:53 98.6 F 67 20 119/76 97 Intake and Output 05/30/23 05/31/23 05/31/23 22:59 06:59 14:59 Other: Voiding Method Toilet # Voids 1 Weight 104.326 kg 104.326 kg - Constitutional General appearance: no acute distress - EENT Eyes: EOMI, PERRLA ENT: hearing grossly normal, normal oropharynx - Neck Neck: no lymphadenopathy Thyroid: bilateral: normal size - Respiratory Respiratory: bilateral: CTA - Cardiovascular Rhythm: regular Heart sounds: normal: S1, S2 - Gastrointestinal General gastrointestinal: normal bowel sounds, soft Localized gastrointestinal: tender: RUQ (questionable) - Integumentary Integumentary: normal - Neurologic Neurologic: CNII-XII intact - Musculoskeletal Musculoskeletal: generalized weakness, strength equal bilaterally - Psychiatric Psychiatric: A&O x's 3, appropriate affect Results CBC & Chem 7: 05/31/23 03:42 05/31/23 03:42 Labs: Abnormal Lab Results - Last 24 Hours (Table) 05/30/23 05/30/23 05/31/23 Range/Units 17:32 17:32 03:42 WBC 19.5 H 16.0 H (3.8-10.6) k/uL RBC 5.64 H (3.80-5.40) m/uL Hgb 16.9 H (11.4-16.0) gm/dL Hct 50.3 H (34.0-46.0) % Neutrophils # 11.3 H (1.3-7.7) k/uL Lymphocytes # 4.9 H 4.9 H (1.0-4.8) k/uL Eosinophils # 2.0 H 2.2 H (0-0.7) k/uL Sodium 130 L (137-145) mmol/L Chloride 91 L (98-107) mmol/L Glucose 113 H (74-99) mg/dL POC Glucose (mg/dL) (70-110) mg/dL Calcium 10.3 H (8.4-10.2) mg/dL Total Protein 8.3 H (6.3-8.2) g/dL Albumin (3.5-5.0) g/dL Lipase 355 H (23-300) U/L 05/31/23 05/31/23 Range/Units 03:42 11:20 WBC (3.8-10.6) k/uL RBC (3.80-5.40) m/uL Hgb (11.4-16.0) gm/dL Hct (34.0-46.0) % Neutrophils # (1.3-7.7) k/uL Lymphocytes # (1.0-4.8) k/uL Eosinophils # (0-0.7) k/uL Sodium 130 L (137-145) mmol/L Chloride 97 L (98-107) mmol/L Glucose (74-99) mg/dL POC Glucose (mg/dL) 111 H (70-110) mg/dL Calcium 8.3 L (8.4-10.2) mg/dL Total Protein (6.3-8.2) g/dL Albumin 3.1 L (3.5-5.0) g/dL Lipase (23-300) U/L Comments: Path reports reviewed and summarized above Chest x-ray: report reviewed CT scan - abdomen: report reviewed CT scan - pelvis: report reviewed Assessment and Plan (1) Leukocytosis, unspecified Narrative/Plan: this was present even prior to surgery, and on workup was felt to be most likely reactive. Current increase is probably due to new inflammation, and has already improved with hydration and antibiotic. Given the clinical picture, it may not totally normalize. The patient does have a mild lymphocytosis, which can be worked up as an outpatient. She has a follow-up scheduled with Dr. Prado. No other intervention from the hematology standpoint at this time. Current Visit: Yes Status: Acute Code(s): D72.829 - ELEVATED WHITE BLOOD CELL COUNT, UNSPECIFIED SNOMED Code(s): 065099516 (2) Renal cell carcinoma Narrative/Plan: the patient is status post partial nephrectomy. Based on the stage and grade of the tumor, adjuvant systemic therapy is not recommended, according to guidelines. The patient will therefore continue follow-up with urology, for which she is already set up by them. Current Visit: Yes Status: Acute Code(s): C64.9 - MALIGNANT NEOPLASM OF UNSP KIDNEY, EXCEPT RENAL PELVIS SNOMED Code(s): 299268722
[2023-05-31 16:56] LABS: Glucose,Whole Blood 86 mg/dL (70-110)
[2023-05-31 18:12] LABS: Appearance,Urine Clear (Clear); Bilirubin,Urine Negative (Negative); Blood,Urine Negative (Negative); Color,Urine Colorless; Glucose,Urine (UA) Negative (Negative); Ketones,Urine Negative (Negative); Leukocyte Esterase,Urine Negative (Negative); Nitrite,Urine Negative (Negative); Protein,Urine Negative (Negative); Specific Gravity,Urine 1.004 (1.001-1.035); Urobilinogen,Urine <2.0 mg/dL (<2.0)
[2023-05-31 20:46] LABS: Glucose,Whole Blood 94 mg/dL (70-110)
[2023-06-01 06:16] LABS: Glucose,Whole Blood 85 mg/dL (70-110)
[2023-06-01] MEDS: INSULIN ASPART (NovoLOG) 100 UNIT/ML VIAL SQ SCH (06:38)
[2023-06-01 08:00] LABS: HCT 41.5 % (34.0-46.0); HGB 13.4 gm/dL (11.4-16.0); MCH 29.9 pg (25.0-35.0); MCHC 32.4 g/dL (31.0-37.0); MCV 92.3 fL (80.0-100.0); Mean Platelet Volume 8.3; Platelet Count 271 k/uL (150-450); RDW 13.1 % (11.5-15.5); WBC 11.5 k/uL (3.8-10.6)
[2023-06-01 08:10] LABS: African American GFR (CKD) >90 (>60 ml/min/1.73 sqM); Anion Gap 5 mmol/L; Blood Urea Nitrogen 7 mg/dL (7-17); Calcium 8.7 mg/dL (8.4-10.2); Carbon Dioxide 26 mmol/L (22-30); Chloride 107 mmol/L (98-107); Glucose 135 mg/dL (74-99); Non-African American GFR(CKD) >90 (>60 ml/min/1.73 sqM); Sodium 138 mmol/L (137-145)
[2023-06-01] MEDS: PANTOPRAZOLE 40 MG/10 ML VIAL IV SCH (08:43)
[2023-06-01] MEDS: HEPARIN SODIUM,PORCINE/PF 5,000 UNIT/0.5 ML SYRINGE SQ SCH (08:43)
[2023-06-01] MEDS: SODIUM CHLORIDE 0.9% 1,000 ML IV SCH (08:43)
[2023-06-01] MEDS: ASPIRIN 81 MG PO SCH (08:44)
[2023-06-01 09:02] VITALS: BP 112/74; PULSE 56; RESP 17; TEMP 98.1
--- NOTE | 2023-06-01 09:08 | P.PN ---
Subjective Progress Note Date: 06/01/23 The patient is in the hospital with leukocytosis and feeling poorly postoperatively from a partial nephrectomy. She feels better today. As been cleared by hematology as she did have an elevated white count prior to her surgery. Objective - Vital Signs Vital signs: Vital Signs Temp 98.1 F 06/01/23 07:08 Pulse 56 L 06/01/23 07:08 Resp 17 06/01/23 07:08 BP 112/74 06/01/23 07:08 Pulse Ox 97 06/01/23 07:08 FiO2 Intake & Output 05/31/23 06/01/23 06/01/23 18:59 06:59 18:59 Intake Total 1480 Balance 1480 Intake: Intake, IV Titration 1480 Amount Sodium Chloride 0.9% 1, 1430 000 ml @ 50 mls/hr IV . Q20H KRIS Rx#:[id number] cefTRIAXone 1 gm In 50 Sodium Chloride 0.9% 50 ml @ 100 mls/hr IVPB Q24HR KRIS Rx#:[id number] Other: # Voids 2 - Labs CBC & Chem 7: 06/01/23 07:42 06/01/23 07:42 Labs: Abnormal Lab Results - Last 24 Hours (Table) 05/31/23 06/01/23 06/01/23 Range/Units 11:20 07:42 07:42 WBC 11.5 H (3.8-10.6) k/uL Glucose 135 H (74-99) mg/dL POC Glucose (mg/dL) 111 H (70-110) mg/dL Assessment and Plan Assessment: Impression: Leukocytosis indeterminate etiology. Status post right partial nephrectomy. Recommendations: The patient has no immediate urologic issues that we need to attend to. She should follow-up with in 2 weeks.
[2023-06-01 10:33] LABS: T4, Free (Free Thyroxine) 1.12 ng/dL (0.78-2.19)
--- NOTE | 2023-06-01 12:31 | P.DS ---
Providers Date of admission: 05/30/23 22:48 Expected date of discharge: 06/01/23 Attending physician: Heather Nelson MD Consults: 05/30/23 22:48 Consult Physician Routine Consulting Provider: Jhon Kimball Consult Reason[facility]Comments[facility] you want consulting provider notified?: Yes Primary care physician: [facility] Hospital Course: Patient is a 63-year-old female with a PMH of recent nephrectomy 3 weeks ago for a mass, hypertension, and type II DM who presents to the emergency room for fatigue and overall feeling unwell. The patient reports that roughly a week after her procedure, she was seen at her PCPs office and was started on Keflex for UTI. In the emergency room a CT abdomen and pelvis without contrast revealed postsurgical changes with an unremarkable appendix. Chest x-ray was unremarkable. Laboratory evaluation was remarkable for leukocytosis of 19.5, hemoglobin 16.9, sodium 130, chloride 91, calcium 10.3, lipase 355, and an unremarkable UA. 06/01 Patient was seen and examined. Patient reports feeling much better after IV hydration. CBC shows WBC count of 11.5. BMP shows glucose of 135. TSH is 7.66 with free T4 of 1.12. Cortisol is 14. Urinalysis negative. Patient was able to work well with PT. Hyponatremia has resolved. Hematology was consulted and recommended no further workup with regard to her leukocytosis. Urology was consulted and recommended outpatient follow-up. Plans for discharge home today. No antibiotics on discharge since no infection has been identified. Discontinue antihypertensive medication since patient is normotensive and borderline hypotensive during this hospitalization. She is advised follow-up with her PCP with regard to her elevated TSH. Pertinent studies as above. General: non toxic, no distress, appears at stated age Derm: warm, dry Head: atraumatic, normocephalic, symmetric Eyes: EOMI, no lid lag, anicteric sclera Cardiovascular: S1S2 reg, no murmur Lungs: CTA bilateral, no rhonchi, no rales , no accessory muscle use Ext: no gross muscle atrophy, no edema, no contractures Neuro: no focal neuro deficits Psych: Alert, oriented, appropriate affect Discharge diagnoses: Persistent leukocytosis with fatigue Hypochloremic hyponatremia, suspect due to poor oral intake with diuretic use Subclinical hypothyroidism Chronic conditions: Hypertension, type II DM This complex discharge took 35 minutes to complete Patient Condition at Discharge: Stable Plan - Discharge Summary Discharge Rx Participant: No New Discharge Prescriptions: Continue Aspirin 81 mg PO DAILY sitaGLIPtin PHOS/metFORMIN HCL [Janumet Xr 100-1,000 mg Tablet] 1 tab PO DAILY Ondansetron [Zofran] 4 mg PO Q8HR PRN PRN Reason: Nausea traMADol HCl [Ultram] 50 mg PO Q6HR PRN 3 Days #10 tab PRN Reason: Moderate To Severe Pain (4-10) ALPRAZolam [Xanax] 0.25 - 0.5 mg PO DAILY PRN PRN Reason: Anxiety Discontinued Benazepril [Lotensin] 10 mg PO DAILY Triamterene/Hydrochlorothiazid [Triamterene-Hctz 37.5-25 mg Tb] 1 tab PO DAILY amLODIPine [Norvasc] 5 mg PO DAILY Discharge Medication List Aspirin 81 mg PO DAILY 09/16/15 [History] Ondansetron [Zofran] 4 mg PO Q8HR PRN 05/07/23 [History] sitaGLIPtin PHOS/metFORMIN HCL [Janumet Xr 100-1,000 mg Tablet] 1 tab PO DAILY 05/07/23 [History] traMADol HCl [Ultram] 50 mg PO Q6HR PRN 3 Days #10 tab 05/11/23 [Rx] ALPRAZolam [Xanax] 0.25 - 0.5 mg PO DAILY PRN 05/28/23 [History] Follow up Appointment(s)/Referral(s): Erick Toro MD [STAFF PHYSICIAN] - 2 Weeks (Please call Saturday to schedule appointment ) Wade Garcia MD [Primary Care Provider] - 1-2 days (Please call Saturday to schedule appointment) Patient Instructions/Handouts: Leukocytosis (DC) Discharge Disposition: HOME SELF-CARE
== END 2023-06-01 11:51 | disposition home or self-care (01) ==
LOC: EC 16:09 → 4SSUR 22:48 → INTOOBSV 22:48 → 4SSUR 23:22
PROVIDERS: ADMIT Internal Medicine; ATTEND Internal Medicine
DX: D72.829 Elevated white blood cell count, unspecified (principal); I95.9 Hypotension, unspecified; R53.83 Other fatigue; E87.8 Other disorders of electrolyte and fluid balance, not elsewhere classified; C64.9 Malignant neoplasm of unspecified kidney, except renal pelvis; Z90.5 Acquired absence of kidney; E03.8 Other specified hypothyroidism; I10 Essential (primary) hypertension; E11.9 Type 2 diabetes mellitus without complications; F17.200 Nicotine dependence, unspecified, uncomplicated; Z87.440 Personal history of urinary (tract) infections; Z98.891 History of uterine scar from previous surgery; Z90.49 Acquired absence of other specified parts of digestive tract; Z90.710 Acquired absence of both cervix and uterus; Z96.652 Presence of left artificial knee joint; F41.9 Anxiety disorder, unspecified; Z82.49 Family history of ischemic heart disease and other diseases of the circulatory system; Z79.82 Long term (current) use of aspirin; Z79.899 Other long term (current) drug therapy; Z79.84 Long term (current) use of oral hypoglycemic drugs; Z88.5 Allergy status to narcotic agent; Z88.2 Allergy status to sulfonamides; Z91.09 Other allergy status, other than to drugs and biological substances
CPT/HCPCS: 96376; 96361; 96365; 96375; 99285; 36415; 97162; 84439; 80053 ×2; 80048; 84443; 82533; 82150; 83690; 83735; 84100; 84484; 85025 ×2; 85027; 81003 ×2; 87636; 71045; 74176; G0378 ×2; J2405 ×2; J0696 ×3; J1885; C9113 ×2; J1644 ×2

== ENCOUNTER 2023-06-02 16:24 | Inpatient (IN) | payer BC ==
--- NOTE | 2023-06-02 16:44 | ED ---
General Adult HPI - General Stated complaint: Weakness,Nausea-return visit Time Seen by Provider: 06/02/23 16:43 Source: patient, RN notes reviewed Mode of arrival: ambulatory Limitations: no limitations - History of Present Illness Initial comments: 63-year-old female presents the emergency department with increased nausea and weakness for 2 days. She was recently discharged from this facility 06/01/23 for same. Denies abdominal pain. - Related Data Home Medications Medication Instructions Recorded Confirmed Aspirin 81 mg PO DAILY 09/16/15 06/02/23 Ondansetron [Zofran] 4 mg PO Q8HR PRN 05/07/23 06/02/23 sitaGLIPtin PHOS/metFORMIN HCL 1 tab PO DAILY 05/07/23 06/02/23 [Janumet Xr 100-1,000 mg Tablet] Acetaminophen Tab [Tylenol] 1,000 mg PO Q6H PRN 06/02/23 06/02/23 Benazepril [Lotensin] 10 mg PO DAILY 06/02/23 06/02/23 Triamterene-Hctz 37.5-25Mg 1 tab PO DAILY 06/02/23 06/02/23 [Maxzide 37.5-25] Previous Rx's Medication Instructions Recorded traMADol HCl [Ultram] 50 mg PO Q6HR PRN 3 Days #10 tab 05/11/23 Calcium Carbonate [Tums] 500 mg PO QID PRN tab 06/05/23 Simethicone Chew [Mylicon Chew] 80 mg PO QID PRN #15 tab 06/05/23 Sucralfate [Carafate] 0.5 gm PO ACHS PRN #60 tab 06/05/23 Allergies Allergy/AdvReac Type Severity Reaction Status Date / Time nickel Allergy Rash/Hives Verified 06/02/23 20:19 Sulfa (Sulfonamide Allergy Rash/Hives Verified 06/02/23 20:19 Antibiotics) codeine AdvReac Nausea & Verified 06/02/23 20:19 Vomiting & Diarrhea Review of Systems ROS Statement: Those systems with pertinent positive or pertinent negative responses have been documented in the HPI. ROS Other: All systems not noted in ROS Statement are negative. Past Medical History Past Medical History: Cancer, Diabetes Mellitus, Hypertension History of Any Multi-Drug Resistant Organisms: None Reported Past Surgical History: Section, Cholecystectomy, Hysterectomy, Joint Replacement Additional Past Surgical History / Comment(s): LEFT KNEE REPLACEMENT, partial right nephrectomy Past Anesthesia/Blood Transfusion Reactions: No Reported Reaction Past Psychological History: Anxiety Smoking Status: Current every day smoker Past Alcohol Use History: Rare Past Drug Use History: None Reported - Past Family History Mother Family Medical History: Hypertension General Exam - General Exam Comments Initial Comments: Visual Physical Exam Vital signs reviewed General: Well-appearing, nontoxic, no acute distress. Head: Normocephalic, atraumatic Eyes: PERRLA, EOMI ENT: Airway patent Chest: Nonlabored breathing Skin: No visual rash, normal skin tone Neuro: Alert and oriented 3 Musculoskeletal: No gross abnormalities Limitations: no limitations Course Vital Signs 06/02/23 06/02/23 06/02/23 16:39 20:00 22:00 Temperature 98.6 F Pulse Rate 73 58 L 59 L Respiratory 18 16 16 Rate Blood Pressure 150/81 129/72 123/78 O2 Sat by Pulse 98 98 99 Oximetry Medical Decision Making - Lab Data Result diagrams: 06/02/23 18:36 06/02/23 18:36 Lab Results 06/02/23 06/02/23 06/02/23 Range/Units 18:36 18:36 19:29 WBC 18.0 H (3.8-10.6) k/uL RBC 4.94 (3.80-5.40) m/uL Hgb 14.3 (11.4-16.0) gm/dL Hct 44.5 (34.0-46.0) % MCV 90.2 (80.0-100.0) fL MCH 29.0 (25.0-35.0) pg MCHC 32.2 (31.0-37.0) g/dL RDW 13.1 (11.5-15.5) % Plt Count 329 (150-450) k/uL MPV 8.4 Neutrophils % 66 % Lymphocytes % 23 % Monocytes % 4 % Eosinophils % 6 % Basophils % 0 % Neutrophils # 11.9 H (1.3-7.7) k/uL Lymphocytes # 4.1 (1.0-4.8) k/uL Monocytes # 0.7 (0-1.0) k/uL Eosinophils # 1.0 H (0-0.7) k/uL Basophils # 0.1 (0-0.2) k/uL Sodium 135 L (137-145) mmol/L Potassium 3.9 (3.5-5.1) mmol/L Chloride 102 (98-107) mmol/L Carbon Dioxide 25 (22-30) mmol/L Anion Gap 8 mmol/L BUN 8 (7-17) mg/dL Creatinine 0.61 (0.52-1.04) mg/dL Est GFR (CKD-EPI)AfAm >90 (>60 ml/min/1.73 sqM) Est GFR (CKD-EPI)NonAf >90 (>60 ml/min/1.73 sqM) Glucose 114 H (74-99) mg/dL POC Glucose (mg/dL) (70-110) mg/dL POC Glu [employer] ID Calcium 9.8 (8.4-10.2) mg/dL Total Bilirubin 0.5 (0.2-1.3) mg/dL AST 27 (14-36) U/L ALT 23 (4-34) U/L Alkaline Phosphatase 53 (38-126) U/L C-Reactive Protein 1.0 H (<1.0) mg/dL Total Protein 7.3 (6.3-8.2) g/dL Albumin 4.3 (3.5-5.0) g/dL Urine Color Light Yellow Urine Appearance Clear (Clear) Urine pH 5.5 (5.0-8.0) Ur Specific [place] 1.005 (1.001-1.035) Urine Protein Negative (Negative) Urine Glucose (UA) Negative (Negative) Urine Ketones Negative (Negative) Urine Blood Negative (Negative) Urine Nitrite Negative (Negative) Urine Bilirubin Negative (Negative) Urine Urobilinogen <2.0 (<2.0) mg/dL Ur Leukocyte Esterase Negative (Negative) 06/03/23 06/03/23 06/03/23 Range/Units 06:03 11:39 17:27 WBC (3.8-10.6) k/uL RBC (3.80-5.40) m/uL Hgb (11.4-16.0) gm/dL Hct (34.0-46.0) % MCV (80.0-100.0) fL MCH (25.0-35.0) pg MCHC (31.0-37.0) g/dL RDW (11.5-15.5) % Plt Count (150-450) k/uL MPV Neutrophils % % Lymphocytes % % Monocytes % % Eosinophils % % Basophils % % Neutrophils # (1.3-7.7) k/uL Lymphocytes # (1.0-4.8) k/uL Monocytes # (0-1.0) k/uL Eosinophils # (0-0.7) k/uL Basophils # (0-0.2) k/uL Sodium (137-145) mmol/L Potassium (3.5-5.1) mmol/L Chloride (98-107) mmol/L Carbon Dioxide (22-30) mmol/L Anion Gap mmol/L BUN (7-17) mg/dL Creatinine (0.52-1.04) mg/dL Est GFR (CKD-EPI)AfAm (>60 ml/min/1.73 sqM) Est GFR (CKD-EPI)NonAf (>60 ml/min/1.73 sqM) Glucose (74-99) mg/dL POC Glucose (mg/dL) 95 110 151 H (70-110) mg/dL POC Glu [employer] Jason Pillai, Casie Beltran Calcium (8.4-10.2) mg/dL Total Bilirubin (0.2-1.3) mg/dL AST (14-36) U/L ALT (4-34) U/L Alkaline Phosphatase (38-126) U/L C-Reactive Protein (<1.0) mg/dL Total Protein (6.3-8.2) g/dL Albumin (3.5-5.0) g/dL Urine Color Urine Appearance (Clear) Urine pH (5.0-8.0) Ur Specific [place] (1.001-1.035) Urine Protein (Negative) Urine Glucose (UA) (Negative) Urine Ketones (Negative) Urine Blood (Negative) Urine Nitrite (Negative) Urine Bilirubin (Negative) Urine Urobilinogen (<2.0) mg/dL Ur Leukocyte Esterase (Negative) 06/03/23 06/04/23 Range/Units 21:37 06:05 WBC (3.8-10.6) k/uL RBC (3.80-5.40) m/uL Hgb (11.4-16.0) gm/dL Hct (34.0-46.0) % MCV (80.0-100.0) fL MCH (25.0-35.0) pg MCHC (31.0-37.0) g/dL RDW (11.5-15.5) % Plt Count (150-450) k/uL MPV Neutrophils % % Lymphocytes % % Monocytes % % Eosinophils % % Basophils % % Neutrophils # (1.3-7.7) k/uL Lymphocytes # (1.0-4.8) k/uL Monocytes # (0-1.0) k/uL Eosinophils # (0-0.7) k/uL Basophils # (0-0.2) k/uL Sodium (137-145) mmol/L Potassium (3.5-5.1) mmol/L Chloride (98-107) mmol/L Carbon Dioxide (22-30) mmol/L Anion Gap mmol/L BUN (7-17) mg/dL Creatinine (0.52-1.04) mg/dL Est GFR (CKD-EPI)AfAm (>60 ml/min/1.73 sqM) Est GFR (CKD-EPI)NonAf (>60 ml/min/1.73 sqM) Glucose (74-99) mg/dL POC Glucose (mg/dL) 94 96 (70-110) mg/dL POC Glu [employer] Jason Pillai Robert Calcium (8.4-10.2) mg/dL Total Bilirubin (0.2-1.3) mg/dL AST (14-36) U/L ALT (4-34) U/L Alkaline Phosphatase (38-126) U/L C-Reactive Protein (<1.0) mg/dL Total Protein (6.3-8.2) g/dL Albumin (3.5-5.0) g/dL Urine Color Urine Appearance (Clear) Urine pH (5.0-8.0) Ur Specific [place] (1.001-1.035) Urine Protein (Negative) Urine Glucose (UA) (Negative) Urine Ketones (Negative) Urine Blood (Negative) Urine Nitrite (Negative) Urine Bilirubin (Negative) Urine Urobilinogen (<2.0) mg/dL Ur Leukocyte Esterase (Negative) Disposition Clinical Impression: Abdominal pain Disposition: ADMITTED IP TO THIS [facility] Condition: Good Is patient prescribed a controlled substance at d/c from ED?: No Time of Disposition: 19:52
[2023-06-02] MEDS ORDERED: SODIUM CHLORIDE 0.9% 500 ML 500 ML IV STA (18:43)
[2023-06-02] MEDS ORDERED: FAMOTIDINE 20 MG/2 ML VIAL IV STA (18:43)
[2023-06-02 18:57] LABS: Basophils # (A) 0.1 k/uL (0-0.2); Basophils % (A) 0 %; Eosinophils % (A) 6 %; HCT 44.5 % (34.0-46.0); HGB 14.3 gm/dL (11.4-16.0); Lymphocytes # (A) 4.1 k/uL (1.0-4.8); Lymphocytes % (A) 23 %; MCHC 32.2 g/dL (31.0-37.0); MCV 90.2 fL (80.0-100.0); Mean Platelet Volume 8.4; Monocytes # (A) 0.7 k/uL (0-1.0); Monocytes % (A) 4 %; Neutrophils # (A) 11.9 k/uL (1.3-7.7); Neutrophils % (A) 66 %; Platelet Count 329 k/uL (150-450); RBC 4.94 m/uL (3.80-5.40); RDW 13.1 % (11.5-15.5)
[2023-06-02 19:09] LABS: ALT 23 U/L (4-34); AST 27 U/L (14-36); African American GFR (CKD) >90 (>60 ml/min/1.73 sqM); Albumin 4.3 g/dL (3.5-5.0); Alkaline Phosphatase 53 U/L (38-126); Anion Gap 8 mmol/L; Blood Urea Nitrogen 8 mg/dL (7-17); Calcium 9.8 mg/dL (8.4-10.2); Carbon Dioxide 25 mmol/L (22-30); Chloride 102 mmol/L (98-107); Glucose 114 mg/dL (74-99); Non-African American GFR(CKD) >90 (>60 ml/min/1.73 sqM); Potassium 3.9 mmol/L (3.5-5.1); Sodium 135 mmol/L (137-145); Total Bilirubin 0.5 mg/dL (0.2-1.3); Total Protein 7.3 g/dL (6.3-8.2)
[2023-06-02 20:16] LABS: Appearance,Urine Clear (Clear); Bilirubin,Urine Negative (Negative); Blood,Urine Negative (Negative); Color,Urine Light Yellow; Glucose,Urine (UA) Negative (Negative); Ketones,Urine Negative (Negative); Leukocyte Esterase,Urine Negative (Negative); Nitrite,Urine Negative (Negative); PH, Urine 5.5 (5.0-8.0); Protein,Urine Negative (Negative); Specific Gravity,Urine 1.005 (1.001-1.035); Urobilinogen,Urine <2.0 mg/dL (<2.0)
[2023-06-02] MEDS ORDERED: SODIUM CHLORIDE 0.9% 1,000 ML IV STA (21:14)
[2023-06-02] MEDS ORDERED: SODIUM CHLORIDE 0.9% 1,000 ML IV ONE (21:14)
[2023-06-02] MEDS ORDERED: ONDANSETRON 4 MG/2 ML VIAL IVP STA (21:14)
[2023-06-02] MEDS ORDERED: NALOXONE 0.4 MG/ML 1 ML VIAL IV PRN (21:26)
[2023-06-03] MEDS: ONDANSETRON 4 MG/2 ML VIAL IVP PRN ×2 (05:36→14:53)
[2023-06-03 06:05] LABS: Glucose,Whole Blood 95 mg/dL (70-110)
[2023-06-03] MEDS ORDERED: ACETAMINOPHEN TAB 500 MG TAB PO PRN (06:18)
[2023-06-03] MEDS: traMADol 50 MG TAB PO PRN ×3 (06:45→21:41)
[2023-06-03] MEDS: ASPIRIN 81 MG PO SCH (08:04)
--- NOTE | 2023-06-03 08:12 | P.GSHP ---
History of Present Illness H&P Date: 06/03/23 63-year-old female admitted to the hospital because of abdominal pain nausea and overall poor appetite. The patient underwent a robotic-assisted right partial nephrectomy for kidney cancer 3 weeks ago. She apparently had a urinary tract infection postoperatively treated successfully with antibiotics. He ended up in the hospital last week because of nausea, epigastric pain and overall malaise. She had a CAT scan that showed inflammation and blood in the lower portion of the right kidney as expected postsurgical from the partial nephrectomy. The patient apparently had a elevated white count preoperatively that he has been evaluated by oncology and and not felt to be malignant. When she was in the hospital last weekend she was given IV fluids and IV antibiotics and felt better. She is discharged home on Saturday felt great only to wake-up Saturday and her symptoms returned. She was admitted again. Her white count was 18,000. Her white count is bowels between 11 and 19,000 in the perioperative period her urine is clear. Her vital signs are stable. - Constitutional Constitutional: Denies chills, Denies fever - EENT Eyes: denies blurred vision, denies pain Ears, nose, mouth and throat: Denies headache, Denies sore throat - Cardiovascular Cardiovascular: Denies chest pain, Denies shortness of breath - Respiratory Respiratory: Denies cough, Denies 7 - Gastrointestinal Gastrointestinal: Denies abdominal pain, Denies diarrhea, Denies nausea, Denies vomiting - Genitourinary (Female) Genitourinary: Denies dysuria, Denies hematuria - Genitourinary (Male) Genitourinary: Denies dysuria, Denies hematuria - Musculoskeletal Musculoskeletal: Denies myalgias - Integumentary Integumentary: Denies pruritus, Denies rash - Neurological Neurological: Denies numbness, Denies weakness - Psychiatric Psychiatric: Denies anxiety, Denies depression - Endocrine Endocrine: Denies fatigue, Denies weight change Past Medical History Past Medical History: Cancer, Diabetes Mellitus, Hypertension History of Any Multi-Drug Resistant Organisms: None Reported Past Surgical History: Section, Cholecystectomy, Hysterectomy, Joint Replacement Additional Past Surgical History / Comment(s): LEFT KNEE REPLACEMENT, partial right nephrectomy Past Anesthesia/Blood Transfusion Reactions: No Reported Reaction Past Psychological History: Anxiety Smoking Status: Current every day smoker Past Alcohol Use History: Rare Past Drug Use History: None Reported - Past Family History Mother Family Medical History: Hypertension Medications and Allergies Home Medications Medication Instructions Recorded Confirmed Type Aspirin 81 mg PO DAILY 09/16/15 06/02/23 History Ondansetron [Zofran] 4 mg PO Q8HR PRN 05/07/23 06/02/23 History sitaGLIPtin PHOS/metFORMIN HCL 1 tab PO DAILY 05/07/23 06/02/23 History [Janumet Xr 100-1,000 mg Tablet] traMADol HCl [Ultram] 50 mg PO Q6HR PRN 3 Days #10 tab 05/11/23 06/02/23 Rx ALPRAZolam [Xanax] 0.25 - 0.5 mg PO DAILY PRN 05/28/23 06/02/23 History Acetaminophen Tab [Tylenol Tab] 1,000 mg PO Q6H PRN 06/02/23 06/02/23 History Benazepril [Lotensin] 10 mg PO DAILY 06/02/23 06/02/23 History Triamterene-Hctz 37.5-25Mg 1 tab PO DAILY 06/02/23 06/02/23 History [Maxzide 37.5-25] Allergies Allergy/AdvReac Type Severity Reaction Status Date / Time nickel Allergy Rash/Hives Verified 06/02/23 20:19 Sulfa (Sulfonamide Allergy Rash/Hives Verified 06/02/23 20:19 Antibiotics) codeine AdvReac Nausea & Verified 06/02/23 20:19 Vomiting & Diarrhea Surgical - Exam Vital Signs Temp Pulse Resp BP Pulse Ox 98.6 F 73 18 150/81 98 06/02/23 16:39 06/02/23 16:39 06/02/23 16:39 06/02/23 16:39 06/02/23 16:39 - General Mild distress with anxiety well developed, well nourished - Eyes PERRL - ENT no hearing loss - Neck no masses - Respiratory normal expansion, normal respiratory effort - Cardiovascular Rhythm: regular - Abdomen Abdomen: soft, non tender - Neurologic normal coordination, normal sensation - Musculoskeletal normal posture - Psychiatric oriented to time, oriented to person, oriented to place, speech is normal, memory intact Results - Labs 06/02/23 18:36 06/02/23 18:36 Abnormal Lab Results - Last 24 Hours (Table) 06/02/23 06/02/23 Range/Units 18:36 18:36 WBC 18.0 H (3.8-10.6) k/uL Neutrophils # 11.9 H (1.3-7.7) k/uL Eosinophils # 1.0 H (0-0.7) k/uL Sodium 135 L (137-145) mmol/L Glucose 114 H (74-99) mg/dL C-Reactive Protein 1.0 H (<1.0) mg/dL Diabetes panel 06/02/23 Range/Units 18:36 Sodium 135 L (137-145) mmol/L Potassium 3.9 (3.5-5.1) mmol/L Chloride 102 (98-107) mmol/L Carbon Dioxide 25 (22-30) mmol/L BUN 8 (7-17) mg/dL Creatinine 0.61 (0.52-1.04) mg/dL Glucose 114 H (74-99) mg/dL Calcium 9.8 (8.4-10.2) mg/dL AST 27 (14-36) U/L ALT 23 (4-34) U/L Alkaline Phosphatase 53 (38-126) U/L Total Protein 7.3 (6.3-8.2) g/dL Albumin 4.3 (3.5-5.0) g/dL Calcium panel 06/02/23 Range/Units 18:36 Calcium 9.8 (8.4-10.2) mg/dL Albumin 4.3 (3.5-5.0) g/dL Pituitary panel 06/02/23 Range/Units 18:36 Sodium 135 L (137-145) mmol/L Potassium 3.9 (3.5-5.1) mmol/L Chloride 102 (98-107) mmol/L Carbon Dioxide 25 (22-30) mmol/L BUN 8 (7-17) mg/dL Creatinine 0.61 (0.52-1.04) mg/dL Glucose 114 H (74-99) mg/dL Calcium 9.8 (8.4-10.2) mg/dL Adrenal panel 06/02/23 Range/Units 18:36 Sodium 135 L (137-145) mmol/L Potassium 3.9 (3.5-5.1) mmol/L Chloride 102 (98-107) mmol/L Carbon Dioxide 25 (22-30) mmol/L BUN 8 (7-17) mg/dL Creatinine 0.61 (0.52-1.04) mg/dL Glucose 114 H (74-99) mg/dL Calcium 9.8 (8.4-10.2) mg/dL Total Bilirubin 0.5 (0.2-1.3) mg/dL AST 27 (14-36) U/L ALT 23 (4-34) U/L Alkaline Phosphatase 53 (38-126) U/L Total Protein 7.3 (6.3-8.2) g/dL Albumin 4.3 (3.5-5.0) g/dL Assessment and Plan Assessment: Impression: That is post right partial nephrectomy for renal cell carcinoma. Abdominal pain with nausea of indeterminate cause possibly related to the surgery. Elevated white count acute versus chronic. Recommendations: We'll resume the IV and IV antibiotics. Cultures have been obtained. I'll repeat the CAT scan with contrast. Depending on these findings as to further recommendations.
[2023-06-03] MEDS: lisinopriL 10 MG TAB PO SCH (08:15)
[2023-06-03] MEDS: LINAGLIPTIN 5 MG TABLET PO SCH (08:18)
[2023-06-03] MEDS ORDERED: metFORMIN 500 MG TAB PO SCH (09:00)
[2023-06-03] MEDS: IOPAMIDOL CONTRAST (ORAL USE) VIAL PO PRN ×2 (09:17→10:15)
[2023-06-03] MEDS: SODIUM CHLORIDE 0.45% 1,000 ML IV SCH ×2 (09:23→23:09)
[2023-06-03 10:48] VITALS: BMI 33.0
[2023-06-03 11:41] LABS: Glucose,Whole Blood 110 mg/dL (70-110)
[2023-06-03] MEDS: TRIAMTERENE-HCTZ 37.5-25MG 1 EACH TAB PO SCH (11:58)
--- NOTE | 2023-06-03 13:35 | CT ---
EXAMINATION TYPE: CT abdomen pelvis wo/w con CT DLP: 2942.2 mGycm, Automated exposure control for dose reduction was used. DATE OF EXAM: 06/03/2023 10:58 AM COMPARISON: CT 05/30/2023 CLINICAL INDICATION:Female, 63 years old with history of Right partial nephrectomy, elevated white co unt; Right partial nephrectomy, elevated white count. TECHNIQUE: Axial CT of the abdomen and pelvis. Sagittal and coronal reformats were created on a [employer] workstation. Contrast used:100ml mL of Isovue 300 without and with IV Contrast, (none if empty) Oral contrast used: with Oral Contrast (none if empty) FINDINGS: LOWER CHEST: Unremarkable ABDOMEN LIVER: Diffusely hypoattenuating parenchyma. GALLBLADDER AND BILE DUCTS: The gallbladder is surgically absent. PANCREAS: Unremarkable. SPLEEN: Unremarkable. ADRENAL GLANDS: Unremarkable. KIDNEYS AND URETERS: Redemonstration of right perinephric fat stranding with decrease in ill-defined hyperdense fluid along the right lower pole. There remains a more dense curvilinear material present similar to prior and likely representing suture material. Postcontrast imaging demonstrates appropria te nephrogram with right lower pole suspected fluid collection present. Delayed imaging demonstrates no evidence for extravasation of excreted IV contrast. Simple appearing cysts are present. PELVIS BLADDER: Incompletely distended but grossly unremarkable. REPRODUCTIVE: Unremarkable. ABDOMEN & PELVIS STOMACH AND BOWEL: Stomach and duodenum are unremarkable. No evidence of bowel obstruction. Appendix is visualized and is nondilated. PERITONEUM: No pneumoperitoneum. No sizable free fluid. Moderate perinephric and paranephric inflamma tory changes. VASCULATURE: Moderate atherosclerotic calcifications are present throughout the abdominal aorta and i ts branches. No evidence of aortic aneurysm. MUSCULOSKELETAL: No acute osseous abnormalities LYMPH NODES: No gross evidence for lymphadenopathy. SOFT TISSUE/ABDOMINAL WALL: Rectus diastases. Subcentimeter fat-containing umbilical hernia. Linear f at stranding along the right anterior abdominal wall, likely postsurgical. IMPRESSION: Posttreatment changes to the right kidney inferior pole with with right inferior pole fluid collectio n. No evidence for extravasation of excreted IV contrast out of the collecting system. Given some fat stranding changes superimposed infection is not entirely excluded.
[2023-06-03 17:31] LABS: Glucose,Whole Blood 151 mg/dL (70-110)
--- NOTE | 2023-06-03 17:40 | P.CONS ---
History of Present Illness - Reason for Consult Consult date: 06/03/23 - History of Present Illness Patient is a 63-year-old female with a PMH of recent nephrectomy 3 weeks ago for a mass, hypertension, and type II DM who presents to the emergency room for fatigue and overall feeling unwell. The patient reports that roughly a week after her procedure, she was seen at her PCPs office and was started on Keflex for UTI. Of note, she was recently admitted from 05/31-06/01 for similar symptoms. Workup during that time included TSH of 7.66 with free T4 of 1.12. Cortisol of 14. Urinalysis negative. Patient was able to work well with PT. Hyponatremia resolved with IV hydration. Hematology was consulted and recommended no further workup with regard to her leukocytosis. Urology was consulted and recommended outpatient follow-up. Patient states that she was generally feeling well after her discharge but after one day started to experience intense nausea, lethargy and fatigue. This promp amrik her to come back to the ED. In the ED, her vital signs were stable. CBC showed leukocytosis of 18. CMP showed sodium of 135, glucose 114. CRP was 1. Urinalysis negative. Patient was admitted under urology for further management of symptoms. [facility] has been consulted for further management of this patient. General: non toxic, no distress, appears at stated age Derm: warm, dry Head: atraumatic, normocephalic, symmetric Eyes: EOMI, no lid lag, anicteric sclera Cardiovascular: S1S2 reg, no murmur Lungs: CTA bilateral, no rhonchi, no rales , no accessory muscle use Ext: no gross muscle atrophy, no edema, no contractures Neuro: no focal neuro deficits Psych: Alert, oriented, appropriate affect Persistent leukocytosis with fatigue Hyponatremia, suspect due to poor oral intake with diuretic use Subclinical hypothyroidism Chronic conditions: Hypertension, type II DM Based on my assessment of this patient, this patient meets a moderate complexity level of care. Patient has an acute diagnosis of lethargy and leukocytosis that poses a threat to life or bodily function. Previous workup includes TSH, cortisol, urinalysis. Hematology and urology was consulted as well as that. Blood culture from 05/28 negative at 5 days. Urine culture from 05/28 negative. Started on Rocephin 1g IV QD empirically. I have reviewed the following marine consultant notes: Urology note reviewed. I have reviewed the results of the following tests: CBC, CMP, CRP, UA. I have ordered the following tests: Agree with CTAP. I have discussed the care of this patient with the following independent wy storian: I have independently interpreted the following test below: I have discussed the management of this patient with the following physician: Past Medical History Past Medical History: Cancer, Diabetes Mellitus, Hypertension History of Any Multi-Drug Resistant Organisms: None Reported Past Surgical History: Section, Cholecystectomy, Hysterectomy, Joint Replacement Additional Past Surgical History / Comment(s): LEFT KNEE REPLACEMENT, partial right nephrectomy Past Anesthesia/Blood Transfusion Reactions: No Reported Reaction Past Psychological History: Anxiety Smoking Status: Current every day smoker Past Alcohol Use History: Rare Past Drug Use History: None Reported - Past Family History Mother Family Medical History: Hypertension Medications and Allergies Home Medications Medication Instructions Recorded Confirmed Type Aspirin 81 mg PO DAILY 09/16/15 06/02/23 History Ondansetron [Zofran] 4 mg PO Q8HR PRN 05/07/23 06/02/23 History sitaGLIPtin PHOS/metFORMIN HCL 1 tab PO DAILY 05/07/23 06/02/23 History [Janumet Xr 100-1,000 mg Tablet] traMADol HCl [Ultram] 50 mg PO Q6HR PRN 3 Days #10 tab 05/11/23 06/02/23 Rx ALPRAZolam [Xanax] 0.25 - 0.5 mg PO DAILY PRN 05/28/23 06/02/23 History Acetaminophen Tab [Tylenol Tab] 1,000 mg PO Q6H PRN 06/02/23 06/02/23 History Benazepril [Lotensin] 10 mg PO DAILY 06/02/23 06/02/23 History Triamterene-Hctz 37.5-25Mg 1 tab PO DAILY 06/02/23 06/02/23 History [Maxzide 37.5-25] Allergies Allergy/AdvReac Type Severity Reaction Status Date / Time nickel Allergy Rash/Hives Verified 06/02/23 20:19 Sulfa (Sulfonamide Allergy Rash/Hives Verified 06/02/23 20:19 Antibiotics) codeine AdvReac Nausea & Verified 06/02/23 20:19 Vomiting & Diarrhea Physical Exam Vitals: Vital Signs Temp Pulse Pulse Resp BP BP Pulse Ox 06/03/23 13:30 97.7 F 55 L 16 140/81 96 06/03/23 09:19 16 06/03/23 07:15 97.6 F 58 L 16 134/82 98 06/03/23 03:58 97.7 F 69 15 120/73 98 06/03/23 00:30 18 06/02/23 22:55 97.8 F 62 17 137/82 98 06/02/23 22:00 59 L 16 123/78 99 06/02/23 20:00 58 L 16 129/72 98 Intake and Output 06/03/23 06/03/23 06/03/23 06:59 14:59 22:59 Other: Voiding Method Toilet Toilet # Voids 1 3 # Bowel Movements 1 Weight 104.326 kg 104.326 kg Results CBC & Chem 7: 06/02/23 18:36 06/02/23 18:36 Labs: Abnormal Lab Results - Last 24 Hours (Table) 06/02/23 06/02/23 06/03/23 Range/Units 18:36 18:36 17:27 WBC 18.0 H (3.8-10.6) k/uL Neutrophils # 11.9 H (1.3-7.7) k/uL Eosinophils # 1.0 H (0-0.7) k/uL Sodium 135 L (137-145) mmol/L Glucose 114 H (74-99) mg/dL POC Glucose (mg/dL) 151 H (70-110) mg/dL C-Reactive Protein 1.0 H (<1.0) mg/dL
[2023-06-03 21:39] LABS: Glucose,Whole Blood 94 mg/dL (70-110)
--- NOTE | 2023-06-03 21:56 | P.PN ---
Progress Note - Text Progress Note Date: 06/03/[address] scan shows some reduction of the surgical hematoma in the right kidney s/p partial nephrectomy there is no air seen Given the improvement this is post surgical change and unlikely the cause of the patients distress
[2023-06-04] MEDS: traMADol 50 MG TAB PO PRN (05:29)
[2023-06-04] MEDS: ONDANSETRON 4 MG/2 ML VIAL IVP PRN ×3 (05:31→16:50)
[2023-06-04 06:15] LABS: Glucose,Whole Blood 96 mg/dL (70-110)
--- NOTE | 2023-06-04 07:18 | P.PN ---
Subjective Progress Note Date: 06/04/23 The patient is in the hospital with vague abdominal pain and nausea. She has a chronically elevated white count best that I can tell from the records. She is status post right partial nephrectomy. A computed tomography scan showed slight regression of the perioperative hematoma from the right partial nephrectomy. This does not look infected. She is afebrile. She feels better this morning. Objective - Vital Signs Vital signs: Vital Signs Temp 97.6 F 06/04/23 02:45 Pulse 56 L 06/04/23 02:45 Resp 15 06/04/23 02:45 BP 127/80 06/04/23 02:45 Pulse Ox 99 06/04/23 02:45 FiO2 Intake & Output 06/03/23 06/04/23 06/04/23 18:59 06:59 18:59 Weight 104.326 kg Other: Voiding Method Toilet Toilet # Voids 3 2 # Bowel Movements 1 - Labs CBC & Chem 7: 06/02/23 18:36 06/02/23 18:36 Labs: Abnormal Lab Results - Last 24 Hours (Table) 06/03/23 Range/Units 17:27 POC Glucose (mg/dL) 151 H (70-110) mg/dL Assessment and Plan Assessment: Impression: Postoperative nausea. Perirenal hematoma post partial rightnephrectomy resolving without infection. Recommendations: I would continue with IV antibiotics and IV fluids for another 48 hours to see if we can resolve her issues. This is been discussed with the patient.
[2023-06-04] MEDS: ASPIRIN 81 MG PO SCH (08:46)
[2023-06-04] MEDS: LINAGLIPTIN 5 MG TABLET PO SCH (08:46)
[2023-06-04] MEDS: TRIAMTERENE-HCTZ 37.5-25MG 1 EACH TAB PO SCH (08:46)
[2023-06-04] MEDS: SODIUM CHLORIDE 0.45% 1,000 ML IV SCH (08:47)
[2023-06-04] MEDS: lisinopriL 10 MG TAB PO SCH (08:47)
--- NOTE | 2023-06-04 11:27 | P.PN ---
Subjective Progress Note Date: 06/04/23 Pt reports nausea is improved. Has an appetite this AM. Urology would like to keep patient on IV abx for 2 more days. Gen: awake, alert HEENT: normocephalic, atraumatic, good hearing acuity, moist mucous membranes Resp: good air exchange, breathing comfortably with no accessory muscle use CVS: good distal perfusion x 4, GI: soft, NTTP, ND : no SPT, no CVAT, nolan catheter not present MSK: no pitting edema, no clubbing Neuro: non-focal, moving all extremities Psych: cooperative, euthymic mood Hospital course: Patient is a 63-year-old female with a PMH of recent nephrectomy 3 weeks ago for a mass, hypertension, and type II DM who presented to the emergency room for fatigue and overall feeling unwell. In the ED, her vital signs were stable. CBC showed leukocytosis of 18. CMP showed sodium of 135, glucose 114. CRP was 1. Urinalysis negative. Patient was admitted under urology for further management of symptoms. Assessment: Persistent leukocytosis with fatigue Hyponatremia, suspect due to poor oral intake with diuretic use Subclinical hypothyroidism Chronic conditions: Hypertension, type II DM Plan: Today, patient is afebrile, 123/78, heart rate 55, 96% on room air Blood sugars range between 96 and 151 Urology note reviewed, they recommend 2 additional days of IV antibiotics and IV fluids Continue 1 g daily of ceftriaxone Follow up urine culture Continue IV fluids Zofran 4 mg every 6 hours when necessary for nausea Patient is full code Objective - Vital Signs Vital signs: Vital Signs Temp 97.5 F L 06/04/23 07:00 Pulse 55 L 06/04/23 07:00 Resp 15 06/04/23 07:00 BP 123/78 06/04/23 07:00 Pulse Ox 96 06/04/23 07:00 FiO2 Intake & Output 06/03/23 06/04/23 06/04/23 18:59 06:59 18:59 Intake Total 300 Balance 300 Weight 104.326 kg Intake: Oral 300 Other: Voiding Method Toilet Toilet # Voids 3 2 # Bowel Movements 1 - Labs CBC & Chem 7: 06/02/23 18:36 06/02/23 18:36 Labs: Abnormal Lab Results - Last 24 Hours (Table) 07/10/23 Range/Units 17:27 POC Glucose (mg/dL) 151 H (70-110) mg/dL
[2023-06-04 11:39] LABS: Glucose,Whole Blood 101 mg/dL (70-110)
[2023-06-04 17:25] LABS: Glucose,Whole Blood 96 mg/dL (70-110)
[2023-06-04 21:03] LABS: Glucose,Whole Blood 103 mg/dL (70-110)
[2023-06-05] MEDS: SODIUM CHLORIDE 0.45% 1,000 ML IV SCH (01:53)
[2023-06-05 06:25] LABS: Glucose,Whole Blood 87 mg/dL (70-110)
[2023-06-05 08:49] VITALS: BP 134/74; PULSE 56; RESP 16; TEMP 98.5
[2023-06-05] MEDS ORDERED: metFORMIN 500 MG TAB PO SCH (09:00)
[2023-06-05] MEDS ORDERED: SUCRALFATE 1 GM TAB PO PRN (09:03)
[2023-06-05] MEDS ORDERED: CALCIUM CARBONATE 500 MG CHEWABLE PO PRN (09:03)
[2023-06-05] MEDS ORDERED: SIMETHICONE 80 MG CHEWABLE PO PRN (09:03)
[2023-06-05] MEDS: lisinopriL 10 MG TAB PO SCH (09:09)
[2023-06-05] MEDS: ASPIRIN 81 MG PO SCH (09:09)
[2023-06-05] MEDS: TRIAMTERENE-HCTZ 37.5-25MG 1 EACH TAB PO SCH (09:09)
[2023-06-05] MEDS: LINAGLIPTIN 5 MG TABLET PO SCH (09:09)
--- NOTE | 2023-06-05 11:21 | P.DS ---
Providers Date of admission: 06/04/23 09:00 Attending physician: Jesse London Consults: 06/03/23 08:15 Consult Physician Urgent Consulting Provider: Barrett Whitley Consult Reason/Comments: Medical management Do you want consulting provider notified?: Yes Primary care physician: Wade Garcia Hospital Course: 63-year-old female who underwent a robotic-assisted partial right nephrectomy a few weeks ago for malignant renal cell carcinoma. She has had a difficult postoperative course with regard to nausea and vague abdominal pain. She is admitted hospital week ago with an elevated white count which in retrospect is chronic. She had abdominal pain and nausea. She was given IV antibiotics and antiemetics and seemed to do well was discharged home only to be readmitted 06/03/23 with the same symptoms. Her white count was 18,000. In reviewing her white count over the last year prior to surgery to have been in the mid to high teens. She had a computed tomography scan with and without contrast which actually showed diminishment in the size of the post operative hematoma as expected from a difficult right partial nephrectomy. He is placed on IV antibiotics and antiemetics. She was seen by medicine. We have added omeprazole. She feels well enough that she like to go home. We discharged home on omeprazole, Zofran and some Levaquin. She'll follow-up with on 06/17/2023. Her condition is good. post Operative care has been discussed with the patient. Patient Condition at Discharge: Good Plan - Discharge Summary Discharge Rx Participant: No New Discharge Prescriptions: No Action Aspirin 81 mg PO DAILY sitaGLIPtin PHOS/metFORMIN HCL [Janumet Xr 100-1,000 mg Tablet] 1 tab PO DAILY Benazepril [Lotensin] 10 mg PO DAILY Acetaminophen Tab [Tylenol Tab] 1,000 mg PO Q6H PRN PRN Reason: Pain Ondansetron [Zofran] 4 mg PO Q8HR PRN PRN Reason: Nausea traMADol HCl [Ultram] 50 mg PO Q6HR PRN 3 Days #10 tab PRN Reason: Moderate To Severe Pain (4-10) ALPRAZolam [Xanax] 0.25 - 0.5 mg PO DAILY PRN PRN Reason: Anxiety Triamterene-Hctz 37.5-25Mg [Maxzide 37.5-25] 1 tab PO DAILY Discharge Medication List Aspirin 81 mg PO DAILY 09/16/15 [History] Ondansetron [Zofran] 4 mg PO Q8HR PRN 05/07/23 [History] sitaGLIPtin PHOS/metFORMIN HCL [Janumet Xr 100-1,000 mg Tablet] 1 tab PO DAILY 05/07/23 [History] traMADol HCl [Ultram] 50 mg PO Q6HR PRN 3 Days #10 tab 05/11/23 [Rx] ALPRAZolam [Xanax] 0.25 - 0.5 mg PO DAILY PRN 05/28/23 [History] Acetaminophen Tab [Tylenol Tab] 1,000 mg PO Q6H PRN 06/02/23 [History] Benazepril [Lotensin] 10 mg PO DAILY 06/02/23 [History] Triamterene-Hctz 37.5-25Mg [Maxzide 37.5-25] 1 tab PO DAILY 06/02/23 [History] Follow up Appointment(s)/Referral(s): Wade Garcia MD [Primary Care Provider] - 1-2 days Erick Toro MD [STAFF PHYSICIAN] - 06/17/23 Discharge Disposition: HOME SELF-CARE
--- NOTE | 2023-06-05 12:15 | P.PN ---
Subjective Progress Note Date: 06/05/23 Pt reports nausea is improved, but still intermittent. Tolerating diet, having BMs. CT A/P negative for GI pathology. Gen: awake, alert HEENT: normocephalic, atraumatic, good hearing acuity, moist mucous membranes Resp: good air exchange, breathing comfortably with no accessory muscle use CVS: good distal perfusion x 4, GI: soft, NTTP, ND : no SPT, no CVAT, nolan catheter not present MSK: no pitting edema, no clubbing Neuro: non-focal, moving all extremities Psych: cooperative, euthymic mood Hospital course: Patient is a 63-year-old female with a PMH of recent nephrectomy 3 weeks ago for a mass, hypertension, and type II DM who presented to the emergency room for fatigue and overall feeling unwell. In the ED, her vital signs were stable. CBC showed leukocytosis of 18. CMP showed sodium of 135, glucose 114. CRP was 1. Urinalysis negative. Patient was admitted under urology for further management of symptoms. Assessment: Persistent leukocytosis with fatigue Hyponatremia, suspect due to poor oral intake with diuretic use Subclinical hypothyroidism Chronic conditions: Hypertension, type II DM Plan: Today, patient is HDS Pt still c/o intermittent nausea, acid reflux - added carafate, tums, simethicone Medically stable for dsicharge Objective - Vital Signs Vital signs: Vital Signs Temp 98.5 F 06/05/23 08:00 Pulse 56 L 06/05/23 08:00 Resp 16 06/05/23 08:00 BP 134/74 06/05/23 08:00 Pulse Ox 97 06/05/23 08:00 FiO2 Intake & Output 06/04/23 06/05/23 06/05/23 18:59 06:59 18:59 Intake Total 1191 Balance 1191 Intake: Oral 1191 Other: Voiding Method Toilet # Voids 2 1 # Bowel Movements 0 - Labs CBC & Chem 7: 06/02/23 18:36 06/02/23 18:36 Labs: Microbiology - Last 24 Hours (Table) 06/02/23 21:46 Blood Culture - Preliminary Blood
[2023-06-05 12:47] LABS: Glucose,Whole Blood 96 mg/dL (70-110)
== END 2023-06-05 13:36 | disposition home or self-care (01) | DRG 394 ==
LOC: EC 16:24 → 6NMEDSUR 21:29 → OBSVTOIN 06-04 09:00
PROVIDERS: ADMIT Urology; ATTEND Urology
DX: K91.89 Other postprocedural complications and disorders of digestive system (principal); C64.1 Malignant neoplasm of right kidney, except renal pelvis; E87.1 Hypo-osmolality and hyponatremia; N99.840 Postprocedural hematoma of a genitourinary system organ or structure following a genitourinary system procedure; E03.8 Other specified hypothyroidism; D72.829 Elevated white blood cell count, unspecified; E11.9 Type 2 diabetes mellitus without complications; R11.0 Nausea; I10 Essential (primary) hypertension; F41.9 Anxiety disorder, unspecified; F17.200 Nicotine dependence, unspecified, uncomplicated; Z79.82 Long term (current) use of aspirin; Z79.84 Long term (current) use of oral hypoglycemic drugs; Z79.899 Other long term (current) drug therapy; Z90.5 Acquired absence of kidney; Z96.652 Presence of left artificial knee joint; Z88.5 Allergy status to narcotic agent; Z88.2 Allergy status to sulfonamides; Z91.048 Other nonmedicinal substance allergy status
CPT/HCPCS: 36415; 74178; 80053; 81003; 85025; 86140; 87040; 96361; 96365; 96375; 99285

== ENCOUNTER 2023-06-18 12:17 | Emergency (ER) | payer BC ==
[2023-06-18 12:22] VITALS: TEMP 97.4
--- NOTE | 2023-06-18 13:33 | ED ---
General Adult HPI - General Chief complaint: Recheck/Abnormal Lab/Rx Stated complaint: White Count High Time Seen by Provider: 06/18/23 12:30 Source: patient, RN notes reviewed, old records reviewed Mode of arrival: ambulatory Limitations: no limitations - History of Present Illness Initial comments: 63-year-old female who presents to the emergency department because she had an elevated white count. Patient states she had surgery on her kidney back in May 09 timeframe and since then she been back to the emergency department or primary medical care because she's been having a lot of gastric reflux and discomfort. Patient states the symptoms of almost completely resolved she's feeling considerably better. Patient had a blood draw and was called by her primary medical care doctor and told to going to the emergency department today because she might have an infection. Patient tells me that her white count has been elevated for years and she is oriented follow up with the gi technician. Patient states he never came to the reason why is elevated but she follows with them. Patient denies any fevers or chills patient denies any significant abdominal pain patient denies nausea vomiting. Patient states occasionally she has a little right lower quadrant abdominal pain but it comes and goes and is not there currently. Patient denies any dysuria hematuria urinary frequency. Patient denies any back pain. - Related Data Home Medications Medication Instructions Recorded Confirmed Aspirin 81 mg PO DAILY 09/16/15 06/18/23 Ondansetron [Zofran] 4 mg PO Q6H PRN 05/07/23 06/18/23 sitaGLIPtin PHOS/metFORMIN HCL 1 tab PO DAILY 05/07/23 06/18/23 [Janumet Xr 100-1,000 mg Tablet] Cholecalciferol [Vitamin D3 (25 25 mcg PO DAILY 06/18/23 06/18/23 Mcg = 1000 Iu)] Cyanocobalamin (Vitamin B-12) 1,000 mcg PO Q48H 06/18/23 06/18/23 [Vitamin B-12] Omeprazole [PriLOSEC] 20 mg PO BID 06/18/23 06/18/23 Sucralfate [Carafate] 0.5 gm PO ACHS 06/18/23 06/18/23 Allergies Allergy/AdvReac Type Severity Reaction Status Date / Time nickel Allergy Rash/Hives Verified 06/18/23 13:23 Sulfa (Sulfonamide Allergy Rash/Hives Verified 06/18/23 13:23 Antibiotics) codeine AdvReac Nausea & Verified 06/18/23 13:23 Vomiting & Diarrhea Review of Systems ROS Statement: Those systems with pertinent positive or pertinent negative responses have been documented in the HPI. ROS Other: All systems not noted in ROS Statement are negative. Past Medical History Past Medical History: Cancer, Diabetes Mellitus, Hypertension History of Any Multi-Drug Resistant Organisms: None Reported Past Surgical History: Section, Cholecystectomy, Hysterectomy, Joint Replacement Additional Past Surgical History / Comment(s): LEFT KNEE REPLACEMENT, partial right nephrectomy Past Anesthesia/Blood Transfusion Reactions: No Reported Reaction Past Psychological History: Anxiety Smoking Status: Current every day smoker Past Alcohol Use History: Rare Past Drug Use History: None Reported - Past Family History Mother Family Medical History: Hypertension General Exam - General Exam Comments Initial Comments: GENERAL: Patient is well-developed and well-nourished. Patient is nontoxic and well- hydrated and is in no acute distress. ENT: Neck is soft and supple. No significant lymphadenopathy is noted. Oropharynx is clear. Moist mucous membranes. Neck has full range of motion without eliciting any pain. EYES: The sclera were anicteric and conjunctiva were pink and moist. Extraocular movements were intact and pupils were equal round and reactive to light. Eyelids were unremarkable. PULMONARY: Unlabored respirations. Good breath sounds bilaterally. No audible rales rhonchi or wheezing was noted. CARDIOVASCULAR: There is a regular rate and rhythm without any murmurs gallops or rubs. ABDOMEN: Soft and nontender with normal bowel sounds. SKIN: Skin is clear with no lesions or rashes and otherwise unremarkable. NEUROLOGIC: Patient is alert and oriented x3. Cranial nerves II through XII are grossly intact. Motor and sensory are also intact. Normal speech, volume and content. Symmetrical smile. MUSCULOSKELETAL: Normal extremities with adequate strength and full range of motion. LYMPHATICS: No significant lymphadenopathy is noted PSYCHIATRIC: Normal psychiatric evaluation. Limitations: no limitations Course Vital Signs 06/18/23 12:20 Temperature 97.4 F L Pulse Rate 84 Respiratory 18 Rate Blood Pressure 151/107 O2 Sat by Pulse 97 Oximetry Medical Decision Making - Medical Decision Making Was pt. sent in by a medical professional or institution (, PA, ACUTE CARE OCCUPATIONAL THERAPIST, urgent care, hospital, or skilled nursing...) When possible be specific @ -Patient was sent in by her primary provider Did you speak to anyone other than the patient for history (EMS, parent, family, police, friend...)? What history was obtained from this source @ -No Did you review nursing and triage notes (agree or disagree)? Why? @ -I reviewed and agree with nursing and triage notes Were old charts reviewed (outside hosp., previous admission, EMS record, old EKG, old radiological studies, urgent care reports/EKG's, skilled nursing records)? Report findings @ -I reviewed prior lab work prior radiological studies of this patient Differential Diagnosis (chest pain, altered mental status, abdominal pain women, abdominal pain men, vaginal bleeding, weakness, fever, dyspnea, syncope, headache, dizziness, GI bleed, back pain, seizure, CVA, palpatations, mental health, musculoskeletal)? @ -Leukocytosis, infection, leukemia, postsurgical infection this is not all inclusive list EKG interpreted by me (3pts min.). @ -As above X-rays interpreted by me (1pt min.). @ -None done CT interpreted by me (1pt min.). @ -None done U/S interpreted by me (1pt. min.). @ -None done What testing was considered but not performed or refused? (CT, X-rays, U/S, labs)? Why? @ -None What meds were considered but not given or refused? Why? @ -None Did you discuss the management of the patient with other professionals (professionals i.e. , PA, ACUTE CARE OCCUPATIONAL THERAPIST, lab, RT, psych nurse, social studies teacher, actuarial director, teacher, aboriginal liaison officer, window caser)? Give summary @ -No Was smoking cessation discussed for >3mins.? @ -No Was critical care preformed (if so, how long)? @ -No Were there social determinants of health that impacted care today? How? ( Homelessness, low income, unemployed, alcoholism, drug addiction, transportation, low edu. Level, literacy, decrease access to med. care, fci, rehab)? @ -No Was there de-escalation of care discussed even if they declined (Discuss DNR or withdrawal of care, Hospice)? DNR status @ -No What co-morbidities impacted this encounter? (DM, HTN, Smoking, COPD, CAD, Cancer, CVA, ARF, Chemo, Hep., AIDS, mental health diagnosis, sleep apnea, morbid obesity)? @ -None Was patient admitted / discharged? Hospital course, mention meds given and route, prescriptions, significant lab abnormalities, going to OR and other pertinent info. @ -Patient remained comfortable throughout her ED course. Patient would occasionally have some right-sided abdominal pain, though it was not palpable when I examined her. Patient has appointment with Dr. Jones and patient will follow-up with her primary medical care doctor Undiagnosed new problem with uncertain prognosis? @ -No Drug Therapy requiring intensive monitoring for toxicity (Heparin, Nitro, Insulin, Cardizem)? @ -No Were any procedures done? @ -No Diagnosis/symptom? @ -Leukocytosis Acute, or Chronic, or Acute on Chronic? @ -Chronic Uncomplicated (without systemic symptoms) or Complicated (systemic symptoms)? @ -Complicated Side effects of treatment? @ -No Exacerbation, Progression, or Severe Exacerbation? @ -No Poses a threat to life or bodily function? How? (Chest pain, [place], [place], pneumonia, PE, COPD, DKA, ARF, appy, cholecystitis, CVA, Diverticulitis, Homicidal, Suicidal, threat to staff... and all critical care pts) @ -No - Lab Data Result diagrams: 06/18/23 13:27 06/18/23 14:22 Lab Results 06/18/23 06/18/23 06/18/23 Range/Units 13:27 13:27 14:22 WBC 17.3 H (3.8-10.6) k/uL RBC 5.37 (3.80-5.40) m/uL Hgb 16.6 H (11.4-16.0) gm/dL Hct 49.3 H (34.0-46.0) % MCV 91.8 (80.0-100.0) fL MCH 30.9 (25.0-35.0) pg MCHC 33.7 (31.0-37.0) g/dL RDW 13.5 (11.5-15.5) % Plt Count 286 (150-450) k/uL MPV 9.0 Neutrophils % 71 % Lymphocytes % 19 % Monocytes % 7 % Eosinophils % 2 % Basophils % 0 % Neutrophils # 12.2 H (1.3-7.7) k/uL Lymphocytes # 3.3 (1.0-4.8) k/uL Monocytes # 1.2 H (0-1.0) k/uL Eosinophils # 0.4 (0-0.7) k/uL Basophils # 0.1 (0-0.2) k/uL Sodium 135 L (137-145) mmol/L Potassium 4.1 (3.5-5.1) mmol/L Chloride 101 (98-107) mmol/L Carbon Dioxide 26 (22-30) mmol/L Anion Gap 8 mmol/L BUN 5 L (7-17) mg/dL Creatinine 0.72 (0.52-1.04) mg/dL Est GFR (CKD-EPI)AfAm >90 (>60 ml/min/1.73 sqM) Est GFR (CKD-EPI)NonAf 90 (>60 ml/min/1.73 sqM) Glucose 99 (74-99) mg/dL Calcium 9.2 (8.4-10.2) mg/dL Total Bilirubin 0.4 (0.2-1.3) mg/dL AST 23 (14-36) U/L ALT 22 (4-34) U/L Alkaline Phosphatase 45 (38-126) U/L Total Protein 6.6 (6.3-8.2) g/dL Albumin 3.8 (3.5-5.0) g/dL Urine Color Colorless Urine Appearance Clear (Clear) Urine pH 6.0 (5.0-8.0) Ur Specific [place] 1.001 (1.001-1.035) Urine Protein Negative (Negative) Urine Glucose (UA) Negative (Negative) Urine Ketones Negative (Negative) Urine Blood Negative (Negative) Urine Nitrite Negative (Negative) Urine Bilirubin Negative (Negative) Urine Urobilinogen <2.0 (<2.0) mg/dL Ur Leukocyte Esterase Negative (Negative) Disposition Clinical Impression: Leukocytosis Disposition: HOME SELF-CARE Condition: Good Instructions (If sedation given, give patient instructions): Leukocytosis (ED) Is patient prescribed a controlled substance at d/c from ED?: No Referrals: Wade Garcia MD [Primary Care Provider] - 1-2 days Time of Disposition: 15:30
[2023-06-18 13:53] LABS: Appearance,Urine Clear (Clear); Bilirubin,Urine Negative (Negative); Blood,Urine Negative (Negative); Color,Urine Colorless; Glucose,Urine (UA) Negative (Negative); Ketones,Urine Negative (Negative); Leukocyte Esterase,Urine Negative (Negative); Nitrite,Urine Negative (Negative); Protein,Urine Negative (Negative); Specific Gravity,Urine 1.001 (1.001-1.035); Urobilinogen,Urine <2.0 mg/dL (<2.0)
[2023-06-18 14:11] LABS: Basophils # (A) 0.1 k/uL (0-0.2); Basophils % (A) 0 %; Eosinophils # (A) 0.4 k/uL (0-0.7); Eosinophils % (A) 2 %; HCT 49.3 % (34.0-46.0); HGB 16.6 gm/dL (11.4-16.0); Lymphocytes # (A) 3.3 k/uL (1.0-4.8); Lymphocytes % (A) 19 %; MCH 30.9 pg (25.0-35.0); MCHC 33.7 g/dL (31.0-37.0); MCV 91.8 fL (80.0-100.0); Monocytes # (A) 1.2 k/uL (0-1.0); Monocytes % (A) 7 %; Neutrophils # (A) 12.2 k/uL (1.3-7.7); Neutrophils % (A) 71 %; Platelet Count 286 k/uL (150-450); RBC 5.37 m/uL (3.80-5.40); RDW 13.5 % (11.5-15.5); WBC 17.3 k/uL (3.8-10.6)
[2023-06-18 14:44] LABS: ALT 22 U/L (4-34); AST 23 U/L (14-36); African American GFR (CKD) >90 (>60 ml/min/1.73 sqM); Albumin 3.8 g/dL (3.5-5.0); Alkaline Phosphatase 45 U/L (38-126); Anion Gap 8 mmol/L; Blood Urea Nitrogen 5 mg/dL (7-17); Calcium 9.2 mg/dL (8.4-10.2); Carbon Dioxide 26 mmol/L (22-30); Chloride 101 mmol/L (98-107); Glucose 99 mg/dL (74-99); Non-African American GFR(CKD) 90 (>60 ml/min/1.73 sqM); Potassium 4.1 mmol/L (3.5-5.1); Sodium 135 mmol/L (137-145); Total Bilirubin 0.4 mg/dL (0.2-1.3); Total Protein 6.6 g/dL (6.3-8.2)
[2023-06-18 15:36] VITALS: BP 141/86; PULSE 69; RESP 16
== END 2023-06-18 15:41 | disposition home or self-care (01) ==
LOC: EC 12:17
DX: D72.829 Elevated white blood cell count, unspecified (principal); E11.9 Type 2 diabetes mellitus without complications; I10 Essential (primary) hypertension; K21.9 Gastro-esophageal reflux disease without esophagitis; F17.200 Nicotine dependence, unspecified, uncomplicated; Z79.82 Long term (current) use of aspirin; Z79.84 Long term (current) use of oral hypoglycemic drugs; Z79.899 Other long term (current) drug therapy; Z88.2 Allergy status to sulfonamides; Z88.5 Allergy status to narcotic agent; Z88.8 Allergy status to other drugs, medicaments and biological substances; Z90.49 Acquired absence of other specified parts of digestive tract
CPT/HCPCS: 36415; 80053; 81003; 85025; 87040; 99284

== ENCOUNTER 2023-07-30 06:35 | Day surgery (SDC) | payer BC ==
[2023-07-25 15:24] VITALS: BMI 32.3
[~2023-07-30 06:35] MED LIST changes: -DEXAMETHASONE SOD PHOSPHATE 4 MG/ML 1 ML VIAL IV ONE; +LACTATED RINGERS 1,000 ML IV SCH; +LIDOCAINE 1% (10MG/ML) FOR IV START INTRADERMA PRN; -ONDANSETRON 4 MG/2 ML VIAL IVP ONE; -fentaNYL (PF) 50 MCG/ML 2 ML AMP IV PRN
[2023-07-30 06:53] VITALS: TEMP 98.1
[2023-07-30 07:15] LABS: Glucose,Whole Blood 122 mg/dL (70-110)
[2023-07-30] MEDS ORDERED: PROPOFOL 10 MG/ML 20 ML VIAL IV ONE (07:26)
[2023-07-30] MEDS ORDERED: LIDOCAINE 2% INJ 20 MG/ML (2 ML VIAL) ONE (07:26)
--- NOTE | 2023-07-30 07:51 | P.PCN ---
Date of Procedure: 07/30/23 Procedure(s) Performed: Brief history: Patient is a pleasant 63-year-old white female scheduled for an elective upper endoscopy as well as colonoscopy as a part of evaluation of severe GERD and chronic diarrhea for the last several months duration. Procedure performed: Esophagogastroduodenoscopy with biopsy Colonoscopy with biopsy and snare polypectomy Preoperative diagnosis: GERD Chronic diarrhea Anesthesia: MAC Procedure: After informed consent was obtained from the patient was brought into the e ndoscopy unit and IV sedation was administered by anesthesia under continuous monitoring. Initially upper endoscopy was done. The Olympus GF 160 video endoscope was inserted inserted into the mouth and esophagus intubated without any difficulty and was gradually advanced into the stomach and duodenum and carefully examined. The bulb and second part of the duodenum appeared normal. Biopsies were done from the duodenum to rule out celiac disease. The scope was then withdrawn into the stomach adequately insufflated with air and upon careful examination the antrum had mild gastritis and biopsies were done from this area. Mucosa of the body, cardia and fundus appeared normal. The scope was then withdrawn into the esophagus. The GE junction was located at 40 cm to the incisors. It appeared regular with no erythema erosions or ulcerations. Rest of the esophagus appeared normal. Patient tolerated the procedure well. At this time the patient continued to remain sedation. Initial digital rectal examination was normal. Olympus CF 160 video colonoscope was then inserted into the rectum and gradually advanced to the cecum without any difficulty. Careful examination was performed as the scope was gradually being withdrawn. The prep was excellent. The cecum, ascending colon, transverse colon, descending colon, appeared normal. In the sigmoid colon there was a 5 mm polyp that was removed by snare polypectomy. Rest of the sigmoid colon and rectum appeared normal. In the distal rectum there was a 1 cm polyp removed by snare polypectomy. Random biopsies were done from ascending and descending colon to rule out microscopic/collagenous colitis. Retroflexion was performed in the rectum and no lesions were noted. Patient tolerated the procedure well. Impression: 1. Upper endoscopy revealed mild antral gastritis but no evidence of esophagitis or Siddiqui's esophagus 2. Colonoscopy revealed 5 mm sigmoid: polyp and 1 cm distal rectal polyp status post polypectomy respectively Recommendations: Findings of this examination were discussed with the patient as well as a family. She was advised to follow with the biopsy results. If the biopsy result adenoma she can have a repeat colonoscopy in 3 years. In the meantime she will continue with omeprazole 20 mg daily as well as Carafate as needed and follow antireflux measures.
[2023-07-30 07:58] VITALS: RESP 17
[2023-07-30 08:12] VITALS: BP 165/74; PULSE 63
== END 2023-07-30 08:25 | disposition home or self-care (01) ==
LOC: ORWHC2ENDO 06:35
PROVIDERS: ATTEND Internal Medicine Gastroenterology
DX: D12.4 Benign neoplasm of descending colon (principal); D12.5 Benign neoplasm of sigmoid colon; K21.9 Gastro-esophageal reflux disease without esophagitis; K29.50 Unspecified chronic gastritis without bleeding; D51.9 Vitamin B12 deficiency anemia, unspecified; G47.33 Obstructive sleep apnea (adult) (pediatric); E11.9 Type 2 diabetes mellitus without complications; E55.9 Vitamin D deficiency, unspecified; Z88.2 Allergy status to sulfonamides; Z87.891 Personal history of nicotine dependence; Z88.5 Allergy status to narcotic agent; Z79.84 Long term (current) use of oral hypoglycemic drugs; Z79.899 Other long term (current) drug therapy
CPT/HCPCS: 88305; 45380; 45385; 43239; J2704; J2001

== ENCOUNTER → 2023-11-05 | Outpatient (CLI) | payer BC ==
--- NOTE | 2023-11-06 12:01 | MM ---
Reason for Exam: Screening (asymptomatic). Last mammogram was performed 1 year(s) and 6 month(s) ago. Patient History: Menarche at age 13. First Full-Term at age 24. Hysterectomy at age 39. Maternal grandmother had ovarian cancer, age 77. Risk Values: Brittany 5 year model risk: 1.6%. NCI Lifetime model risk: 6.6%. Prior Study Comparison: 04/01/2020 Bilateral Screening Mammogram, [facility]. 05/05/2021 Bilateral Screening Mammogram, [facility]. 05/07/2022 Bilateral Screening Mammogram, [facility]. Tissue Density: The breast tissue is heterogeneously dense. This may lower the sensitivity of mammography. Findings: Analyzed By CAD. There is no suspicious group of microcalcifications or new suspicious mass in either breast. Overall Assessment: Benign, BI-RAD 2 Management: Screening Mammogram of both breasts in 1 year. . Patient should continue monthly self-breast exams. A clinical breast exam by your physician is recommended on an annual basis. This exam should not preclude additional follow-up of suspicious palpable abnormalities. Note on Brittany scores and lifetime risk: 1. A Brittany score greater than 3% is considered moderate risk. If this is the case, consider specialist referral to assess eligibility for a risk reducing agent. 2. If overall lifetime risk for the development of breast cancer is 20% or higher, the patient may qualify for future screening with alternating mammogram and breast MRI. Electronically signed and approved by: Franki Tao M.D. Radiologis
== END | disposition home or self-care (01) ==
LOC: RADMAMWWP 07:52
PROVIDERS: ATTEND Family Medicine
DX: Z12.31 Encounter for screening mammogram for malignant neoplasm of breast (principal)
CPT/HCPCS: 77063; 77067

== ENCOUNTER → 2024-02-17 | Outpatient (CLI) | payer BC ==
[2024-02-17 10:18] LABS: African American GFR (CKD) >90 (>60 ml/min/1.73 sqM); Blood Urea Nitrogen 18 mg/dL (7-17); Non-African American GFR(CKD) 80 (>60 ml/min/1.73 sqM)
--- NOTE | 2024-02-24 23:11 | CT ---
EXAMINATION TYPE: CT chest w con CT DLP: 2356.50 mGycm, Automated exposure control for dose reduction was used. DATE OF EXAM: 02/17/2024 11:11 AM COMPARISON: CT 08/19/2023 . CLINICAL INDICATION:Female, 64 years old with history of C64.1 renal Ca; PHH, f/u for RT renal ca. TECHNIQUE: Multiple axial images were obtained through the chest. Sagittal and coronal reformats were created for review. Contrast used: mL of Isovue 300 with IV Contrast (None if empty) Oral contrast used: (None if empty) FINDINGS: LUNGS/ PLEURA: Previously described 5 mm right and 4 mm left pulmonary nodules are shown to be calcif ied granulomas. No solid nodules of concern. In the right upper lobe, there is a 6 mm groundglass nod ule image 18 series 10, and a 5 mm groundglass nodule image 19, not clearly present before. There see m to be a couple of other very tiny groundglass nodules also in this lobe. Mild upper lobe predominant emphysematous changes. No consolidation, pleural effusion, pneumothorax. AIRWAY: Central airways are patent. LOWER NECK: No significant findings. MEDIASTINUM: Some calcified lymph nodes are redemonstrated. No suspicious enlarged lymph nodes in the mediastinum or uyen.. HEART: Mild cardiomegaly. Mild coronary artery calcification. No appreciable pericardial effusion. VASCULATURE: Moderate atherosclerotic calcifications of the aorta and branches. Ascending aorta is s table at 3.9 CM, descending is stable at 2.7 CM. Aorta is considered fusiform ectatic in its ascendi ng segment. Pulmonary trunk 2.4 cm, stable. Pulmonary trunk is normal in size. Grossly preserved enhancement of t he pulmonary arteries, in the significant limits of non-CTA exam. SOFT TISSUES/LYMPH NODES: Unremarkable soft tissues. Stable axillary nodes without evidence of adenop athy. UPPER ABDOMEN: Please see CT abdomen report for findings. MUSCULOSKELETAL: No acute osseous abnormalities. Mild to moderate disc degeneration changes are prese nt throughout the thoracolumbar spine. Slight progression of height loss along the inferior endplate T11 with associated Schmorl's node, now with a small bony fragment seen within. No overt osseous dest ruction, and previously there was vacuum disc T11-T12, therefore this almost certainly represents juma ign osteonecrosis. There are some bridging syndesmophytes in the mid to lower thoracic spine suggesti ve of developing DISH. No lytic/blastic bony lesions. IMPRESSION: 1. No evidence of metastatic disease to the chest. 2. A few groundglass nodules in the right upper lobe, up to 6 mm, not clearly evident before. These are nonspecific, could be infectious/inflammatory but should be followed up to exclude neoplasia. 3. Stable fusiform ectasia of the ascending thoracic aorta.
--- NOTE | 2024-02-24 23:49 | CT ---
EXAMINATION TYPE: CT abdomen wo/w con CT DLP: 2356.50 mGycm, Automated exposure control for dose reduction was used. DATE OF EXAM: 02/17/2024 11:11 AM COMPARISON: CT 08/19/2023 CLINICAL INDICATION:Female, 64 years old with history of C64.1 renal ca; f/u for RT renal ca. TECHNIQUE: CT of the abdomen was performed without IV contrast, post-IV contrast, and on a delayed ba sis. Oral contrast on board for all phases. Multiplanar reformats were generated. Contrast used:40ml mL of Isovue 300 without and with IV Contrast, (none if empty) Oral contrast used: with Oral Contrast (none if empty) FINDINGS: LOWER CHEST: Please see separate CT chest for findings ABDOMEN LIVER: Unremarkable GALLBLADDER AND BILE DUCTS: Gallbladder again appears absent. No pathologic dilatation of the biliary tree. PANCREAS: Unremarkable. SPLEEN: Scattered calcified granulomas. ADRENAL GLANDS: Thickened and small nodular appearance of the adrenals, could be due to hyperplasia a nd/or adenomatoid changes.. KIDNEYS AND URETERS: Previous right perinephric stranding appears decreased, essentially resolved, wi th mild residual stranding near the inferior pole likely representing scarring. Curvilinear radiodens ities in the right lower pole are again seen consistent with posttreatment changes. There may have be en ablation versus surgical resection? Correlate with surgical history. Previously seen low-attenuati on area along the inferior margin of the right kidney at the original location of the renal mass, thai ears smaller and less conspicuous, now measures approximately 3.8 x 1.8 cm and previously 5.5 x 2.6 c m. No evidence of mass or renal calculi. No hydronephrosis is seen. There is a stable appearance of s everal small round bilateral renal hypodensities, likely cysts--continue to monitor. Note the exam only covers the abdomen, some abdominal structures are incompletely seen, and pelvic st ructures are not on the scan. STOMACH AND BOWEL: Contrast traverses the stomach and small bowel without evidence of obstruction. No significant wall thickening. The terminal ileum appears unremarkable. Appendix is partially seen, a nd does not appear dilated or inflamed. Mild right lower quadrant fat stranding appears stable and es sentially contiguous with the right renal finding; this probably represents posttreatment changes/sca rring related to the kidney and not appendicitis. PERITONEUM/RETROPERITONEUM: No evidence of pneumoperitoneum or free fluid. VASCULATURE: Moderate atherosclerotic calcifications are present throughout the abdominal aorta and i ts branches. No evidence of aortic aneurysm. Phase is suboptimal but the portal vein, SMV, splenic v ein appear enhancing. IVC is grossly unremarkable. LYMPH NODES: No enlarged retroperitoneal or intra-abdominal lymph nodes. SOFT TISSUE/ABDOMINAL WALL: Unremarkable MUSCULOSKELETAL: No acute bony abnormality or lytic/blastic lesion. T11 was described on chest CT. No lumbar compression fracture or other acute process. Mild/moderate multilevel degenerative disk disea se and facet arthrosis, greatest at L4-L5 and L5-S1, with at least moderate canal and neural foramina l stenoses at L5-S1, somewhat milder L4-L5. There is mild grade 1 anterolisthesis of L4-L5, likely d egenerative. IMPRESSION: 1. Continued decrease in size of the right lower pole irregular fluid collection, and diminished per inephric stranding, likely expected evolution of posttreatment changes for right lower pole renal can cer. 2. No definite evidence of renal mass currently. 3. Stable bilateral renal hypodensities, likely cysts. 4. Otherwise stable exam without evidence of metastatic disease to the abdomen.
== END | disposition home or self-care (01) ==
LOC: RADCTMAIN 09:12
PROVIDERS: ATTEND Urology
DX: I77.810 Thoracic aortic ectasia (principal); C64.1 Malignant neoplasm of right kidney, except renal pelvis; N28.89 Other specified disorders of kidney and ureter; R91.8 Other nonspecific abnormal finding of lung field
CPT/HCPCS: 82565; 84520; 71260; 74170; 36415; Q9967

== ENCOUNTER → 2024-02-18 | Outpatient (CLI) | payer BC ==
--- NOTE | 2024-02-26 12:43 | MR ---
EXAMINATION TYPE: MR knee RT wo con DATE OF EXAM: 02/18/2024 COMPARISON: NONE HISTORY: Right knee pain and swelling x2 weeks TECHNIQUE: Multiplanar, multisequence images of the knee is performed without IV contrast. FINDINGS: MEDIAL MENISCUS: Medial extrusion of medial meniscus. Oblique signal posterior horn likely extends to the inferior articular surface. LATERAL MENISCUS: Anterior and posterior horns are intact without tear. CRUCIATE LIGAMENTS: The anterior and posterior cruciate ligaments are intact and unremarkable. COLLATERAL LIGAMENTS: The medial collateral ligament and lateral collateral ligament complex are inta ct . Fluid signal surrounds the medial collateral ligament. EXTENSOR MECHANISM: Visualized quadriceps and patellar tendons are intact. EFFUSION: Moderate to large size suprapatellar joint effusion. POPLITEAL CYST: Moderate to large size popliteal/hansen cyst sagittal image 34. TRICOMPARTMENT SPACES: Moderate tricompartment spurring. Moderate to severe narrowing patellofemoral compartment. CARTILAGE: Chondromalacia patella with areas of full-thickness cartilaginous loss along the posterior patellar pole. BONE MARROW SIGNAL: Foci of increased T2 signal in the posterior aspect of the patella. Some increase d signal involving the posterior central aspect of the medial tibial plateau coronal image 24 for ref erence. OTHER: No additional significant abnormality is appreciated. IMPRESSION: 1. Moderate to severe tricompartment degenerative changes are present as detailed above. 2. Moderate to large-sized suprapatellar joint effusion. 3. Moderate to large sized popliteal cyst. 4. Ehjo-ih-uexmslrd MCL sprain injury. 5. At least intrasubstance suspected full-thickness tear posterior horn medial meniscus.
== END | disposition home or self-care (01) ==
LOC: RADMRIMAIN 16:58
PROVIDERS: ATTEND Family Medicine
DX: M17.11 Unilateral primary osteoarthritis, right knee (principal); S83.411A Sprain of medial collateral ligament of right knee, initial encounter; S83.241A Other tear of medial meniscus, current injury, right knee, initial encounter; M71.21 Synovial cyst of popliteal space [Baker], right knee; X58.XXXA Exposure to other specified factors, initial encounter

== ENCOUNTER → 2024-02-27 | Outpatient (CLI) | payer BC | END | disposition home or self-care (01) | LOC: LABWHC1 15:23 | PROVIDERS: ATTEND Urology | DX: I10 Essential (primary) hypertension (principal) | CPT/HCPCS: 36415; 80053 ==

== ENCOUNTER → 2024-02-29 | Outpatient (CLI) | payer BC ==
[2024-02-29 23:38] LABS: ALT 16 U/L (8-44); AST 24 U/L (13-35); Albumin 4.5 g/dL (3.8-4.9); Albumin/Globulin Ratio 1.41 Ratio (1.60-3.17); Alkaline Phosphatase 87 U/L (41-126); Blood Urea Nitrogen 11.8 mg/dL (9.0-27.0); Calcium 10.4 mg/dL (8.7-10.3); Carbon Dioxide 29.9 mmol/L (21.6-31.8); Chloride 99 mmol/L (96-109); Globulin 3.2 g/dL (1.6-3.3); Glucose 99 mg/dL (70-110); Potassium 4.2 mmol/L (3.5-5.5); Sodium 140 mmol/L (135-145); Total Bilirubin 0.6 mg/dL (0.3-1.2); Total Protein 7.7 g/dL (6.2-8.2)
== END | disposition home or self-care (01) ==
LOC: LABWHC1 11:13
PROVIDERS: ATTEND Urology
DX: I10 Essential (primary) hypertension (principal)
CPT/HCPCS: 36415; 80053

== ENCOUNTER → 2024-08-03 | Outpatient (CLI) | payer BC ==
[2024-08-03 15:20] LABS: Basophils # (A) 0.09 X 10*3/uL (0.00-0.10); Basophils % (A) 0.7 %; Eosinophils # (A) 0.39 X 10*3/uL (0.04-0.35); HCT 50.9 % (37.2-46.3); HGB 16.9 g/dL (12.0-15.0); Lymphocytes # (A) 4.01 X 10*3/uL (0.90-5.00); Lymphocytes % (A) 31.1 %; MCH 30.5 pg (27.0-32.0); MCHC 33.2 g/dL (32.0-37.0); MCV 91.7 FL (80.0-97.0); Mean Platelet Volume 12.1 FL (9.5-12.2); Monocytes # (A) 0.94 X 10*3/uL (0.20-1.00); Monocytes % (A) 7.3 %; NRBC Per 100 WBC 0 X 10*3/uL (0.00-0.01); Neutrophils # (A) 7.43 X 10*3/uL (1.80-7.70); Neutrophils % (A) 57.6 %; Platelet Count 244 X 10*3/uL (140-440); RBC 5.55 X 10*6/uL (4.10-5.20); RDW 12.8 % (11.5-14.5)
[2024-08-03 15:54] LABS: BUN/Creat Ratio 11.22 Ratio (12.00-20.00); Blood Urea Nitrogen 10.1 mg/dL (9.0-27.0); Carbon Dioxide 25.8 mmol/L (21.6-31.8); Chloride 105 mmol/L (96-109); Chol/HDL Ratio 2.85 Ratio; Glucose 112 mg/dL (70-110); LDL Cholesterol,Calculated 80.8 mg/dL (0.0-131.0); Potassium 4.4 mmol/L (3.5-5.5); Sodium 143 mmol/L (135-145); VLDL Calculation 17.26 mg/dL (5.00-40.00)
[2024-08-03 15:55] LABS: ALT 19 U/L (8-44); AST 22 U/L (13-35); Albumin 4.5 g/dL (3.8-4.9); Albumin/Globulin Ratio 1.73 Ratio (1.60-3.17); Alkaline Phosphatase 70 U/L (41-126); Calcium 10.3 mg/dL (8.7-10.3); Globulin 2.6 g/dL (1.6-3.3); Total Bilirubin 0.4 mg/dL (0.3-1.2); Total Protein 7.1 g/dL (6.2-8.2)
== END | disposition home or self-care (01) ==
LOC: LABWHC1 09:24
PROVIDERS: ATTEND Physician Assistant Medical
DX: Z00.00 Encounter for general adult medical examination without abnormal findings (principal)
CPT/HCPCS: 36415; 80053; 80061; 85025

== ENCOUNTER → 2024-09-04 | Outpatient (CLI) | payer BC, MEDICARE ==
[2024-09-04 12:06] LABS: African American GFR (CKD) >90 (>60 ml/min/1.73 sqM); Blood Urea Nitrogen 11 mg/dL (7-17); Non-African American GFR(CKD) >90 (>60 ml/min/1.73 sqM)
--- NOTE | 2024-09-04 13:04 | CT ---
EXAMINATION TYPE: CT angio chest CT DLP: 1168.60 mGycm, Automated exposure control for dose reduction was used. DATE OF EXAM: 09/04/2024 12:40 PM COMPARISON: CT chest 02/17/2024, 08/19/2023, 04/15/2023, CT abdomen and pelvis 02/17/2024 CLINICAL INDICATION:Female, 64 years old with history of I71.20 THORACIC AORTIC ANEURYSM; thoracic ao rtic aneurysm, rt kidney cancer TECHNIQUE/CONTRAST: CTA scan of the thorax is performed without and with IV Contrast, patient injected with 100 mL of Iso yamil 370. 3D reconstructed images are created on an independent workstation and reviewed.. FINDINGS: Lungs/Pleura: No evidence of focal consolidation, pleural effusion or pneumothorax. Few scattered aaron cified granulomas. Mild upper lobe predominant centrilobular emphysematous change. No new suspicious solid pulmonary nodules or masses. Previously seen groundglass nodule within the right upper lobe is no longer visualized. Airway: Large airways are patent. Heart: Heart is within normal limits for size.. No pericardial effusion. Small coronary calcification s. Vasculature: No evidence for intramural hematoma or dissection. Stable ectasia of the ascending thora cic aorta measuring 3.9 cm. The aortic root measures 2.9 cm. The descending thoracic aorta measures 2 .6 cm. Conventional three-vessel aortic arch. Mild atherosclerotic calcification of the aorta and its branches. No evidence of pulmonary embolism. Mediastinum: No evidence of adenopathy. Calcified granulomas within the mediastinal and bilateral hil um. Musculoskeletal: No acute osseous abnormalities. No aggressive osseous lesion. [facility] of the mid thorac ic spine. Prominent sclerosis noted involving the inferior endplate of the T11 vertebral body. Soft Tissues: Stable mildly prominent bilateral axillary lymph nodes. Lower neck: No significant findings. Upper Abdomen: Similar appearance of posttreatment changes to the inferior right kidney. Bilateral arreguin bcentimeter cortical hypodense regions in both kidneys are redemonstrated. Probable cysts. IMPRESSION: 1. Stable ectasia of the ascending thoracic aorta measuring 3.9 cm. 2. No suspicious solid pulmonary nodules or masses. Previously seen groundglass nodules are not well- visualized on today's exam. 3. Similar appearance of the right kidney with posttreatment changes. Attention on follow-up exam. 4. Sequelae of prior granulomatous disease. [facility], , 09/04/2024 1:02 PM
== END | disposition home or self-care (01) ==
LOC: RADCTMAIN 11:28
PROVIDERS: ATTEND Thoracic Surgery (Cardiothoracic Vascular Surgery)
DX: I71.20 Thoracic aortic aneurysm, without rupture, unspecified
CPT/HCPCS: 36415; 71275; 82565; 84520

== ENCOUNTER 2024-12-23 13:39 | Emergency (ER) | payer MEDICARE ==
--- NOTE | 2024-12-23 14:19 | ED ---
General Adult HPI - General Source: patient, EMS, RN notes reviewed Mode of arrival: EMS Limitations: no limitations <Gadiel Bhatti - Last Filed: 12/23/24 17:04> <Lacie Berg - Last Filed: 12/23/24 20:34> - General Chief complaint: Weakness Stated complaint: weakness Time Seen by Provider: 12/23/24 13:58 - History of Present Illness Initial comments: 64-year-old female presents emergency department complaint of increasing weakness. Patient states she been sick for the last 1 week. She states that she had GI issues including nausea diarrhea high output diarrhea with not notable melanotic stools or hematochezia. Patient denies any fevers she follow- up with urgent care because she was concerned about UTI which was negative she states that she had a history of renal carcinoma with prior surgery she had a recent CAT scan which was negative. Patient denies any chest pain shortness of breath she states she had a panic attack this morning because she is feeling increasing weak today she denies any headache, focal weakness. (Gadiel Bhatti) - Related Data Home Medications Medication Instructions Recorded Confirmed Aspirin 81 mg PO DAILY 09/16/15 12/23/24 sitaGLIPtin PHOS/metFORMIN HCL 1 tab PO DAILY 05/07/23 12/23/24 [Janumet Xr 100-1,000 mg Tablet] Cholecalciferol [Vitamin D3 (25 25 mcg PO DAILY 06/18/23 12/23/24 Mcg = 1000 Iu)] Cyanocobalamin (Vitamin B-12) 1,000 mcg PO Q48H 06/18/23 12/23/24 [Vitamin B-12] Omeprazole [PriLOSEC] 20 mg PO DAILY 12/23/24 12/23/24 hydroCHLOROthiazide [Hydrodiuril] 12.5 mg PO DAILY 12/23/24 12/23/24 lisinopriL [Zestril] 2.5 mg PO DAILY 12/23/24 12/23/24 Allergies Allergy/AdvReac Type Severity Reaction Status Date / Time nickel Allergy Rash/Hives Verified 12/23/24 14:40 Sulfa (Sulfonamide Allergy Rash/Hives Verified 12/23/24 14:40 Antibiotics) codeine AdvReac Nausea & Verified 12/23/24 14:40 Vomiting & Diarrhea Review of Systems ROS Other: All systems not noted in ROS Statement are negative. <Gadiel Bhatti - Last Filed: 12/23/24 17:04> ROS Other: All systems not noted in ROS Statement are negative. <Lacie Berg - Last Filed: 12/23/24 20:34> ROS Statement: Those systems with pertinent positive or pertinent negative responses have been documented in the HPI. Past Medical History Past Medical History: Cancer, Diabetes Mellitus, Hypertension Additional Past Medical History / Comment(s): kidney doesn't wear cpap History of Any Multi-Drug Resistant Organisms: None Reported Past Surgical History: Section, Cholecystectomy, Hysterectomy, Joint Replacement Additional Past Surgical History / Comment(s): LEFT KNEE REPLACEMENT, partial right nephrectomy Past Anesthesia/Blood Transfusion Reactions: No Reported Reaction Additional Past Anesthesia/Blood Transfusion Reaction / Comment(s): no blood transfusion Past Psychological History: Anxiety Smoking Status: Current every day smoker Past Alcohol Use History: Rare Past Drug Use History: None Reported - Past Family History Mother Family Medical History: Hypertension <Gadiel Bhatti - Last Filed: 12/23/24 17:04> General Exam Limitations: no limitations General appearance: alert, in no apparent distress Head exam: Present: atraumatic, normocephalic, normal inspection Eye exam: Present: normal appearance, PERRL, EOMI. Absent: scleral icterus, conjunctival injection, periorbital swelling ENT exam: Present: normal exam, normal oropharynx, mucous membranes moist Neck exam: Present: normal inspection, full ROM. Absent: tenderness, meningismus, lymphadenopathy Respiratory exam: Present: normal lung sounds bilaterally. Absent: respiratory distress, wheezes, rales, rhonchi, stridor Cardiovascular Exam: Present: regular rate, normal rhythm, normal heart sounds. Absent: systolic murmur, diastolic murmur, rubs, gallop, clicks GI/Abdominal exam: Present: soft, normal bowel sounds. Absent: distended, tend erness, guarding, rebound, rigid Neurological exam: Present: alert, oriented X3, CN II-XII intact <Gadiel Bhatti - Last Filed: 12/23/24 17:04> Course Vital Signs 12/23/24 12/23/24 12/23/24 13:43 18:29 18:40 Temperature 97.5 F L 97.7 F 98.9 F Pulse Rate 65 61 80 Respiratory 16 17 16 Rate Blood Pressure 179/87 151/87 151/87 O2 Sat by Pulse 97 96 97 Oximetry EKG Findings - EKG Comments: EKG Findings:: EKG performed at 13: 45 sinus rhythm rate of 71 AL 163 QRS 97 QT/QTc 408/430 - EKG Results: EKG: interpreted by ERMD <Gadiel Bhatti - Last Filed: 12/23/24 17:04> Medical Decision Making - Lab Data Result diagrams: 12/23/24 14:34 12/23/24 14:47 <Gadiel Bhatti - Last Filed: 12/23/24 17:04> - Lab Data Result diagrams: 12/23/24 14:34 12/23/24 14:47 <Lacie Berg - Last Filed: 12/23/24 20:34> - Medical Decision Making Was pt. sent in by a medical professional or institution (, PA, KITCHEN HELPER, urgent care, hospital, or [facility]...) When possible be specific @ -No Did you speak to anyone other than the patient for history (EMS, parent, family, police, friend...)? What history was obtained from this source @ -No Did you review nursing and triage notes (agree or disagree)? Why? @ -I reviewed and agree with nursing and triage notes Were old charts reviewed (outside hosp., previous admission, EMS record, old EKG, old radiological studies, urgent care reports/EKG's, [facility] records)? Report findings @ -No old charts were reviewed Differential Diagnosis (chest pain, altered mental status, abdominal pain women, abdominal pain men, vaginal bleeding, weakness, fever, dyspnea, syncope, headache, dizziness, GI bleed, back pain, seizure, CVA, palpatations, mental health, musculoskeletal)? @ -Differential Abdominal Pain Women: Appendicitis, Cholecystitis, diverticulosis, ischemic bowel, pancreatitis, hepatitis, UTI, gastroenteritis, AAA, incarcerated hernia, bowel obstruction, constipation, inflammatory bowel, hepatitis, peptic ulcer disease, splenic infarction, perforated viscus, vulvitis, ovarian torsion, PID, kidney stone, placenta abruption, this is not meant to be an all-inclusive list EKG interpreted by me (3pts min.). @ -As above X-rays interpreted by me (1pt min.). @ -None done CT interpreted by me (1pt min.). @ -CT pending upon signout U/S interpreted by me (1pt. min.). @ -None done What testing was considered but not performed or refused? (CT, X-rays, U/S, labs)? Why? @ -None What meds were considered but not given or refused? Why? @ -None Did you discuss the management of the patient with other professionals (lucinda milton i.e. , MICHAEL, KITCHEN HELPER, lab, RT, psych nurse, social sciences research scientist, quality control checker, teacher, tank officer, case management director)? Give summary @ -No Was smoking cessation discussed for >3mins.? @ -No Was critical care preformed (if so, how long)? @ -No Were there social determinants of health that impacted care today? How? (Homelessness, low income, unemployed, alcoholism, drug addiction, transportation, low edu. Level, literacy, decrease access to med. care, senior care, rehab)? @ -No Was there de-escalation of care discussed even if they declined (Discuss DNR or withdrawal of care, Hospice)? DNR status @ -No What co-morbidities impacted this encounter? (DM, HTN, Smoking, COPD, CAD, Cancer, CVA, ARF, Chemo, Hep., AIDS, mental health diagnosis, sleep apnea, morbid obesity)? @ -None Was patient admitted / discharged? Hospital course, mention meds given and route, prescriptions, significant lab abnormalities, going to OR and other pertinent info. @ -Patient's case signed out to Lacie LI (Gadiel Bhatti) Patient was signed out to me pending CT results and disposition. He stated as above this is a 64-year-old female presenting with generalized weakness. Personally reviewed patient's laboratory testing, remarkable for mild leukocytosis 13.9 with left shift neutrophils 9.2, CMP including troponin is unremarkable, urinalysis no signs of infection, CT of the abdomen pelvis no acute abdominal process. Patient states that she is feeling markedly better after arrival to the emergency department after fluids. Discussion with patient at bedside in regard to results from today's findings with benign workup and recommend she follow-up outpatient with primary care provider. Case discussed with (Lacie Berg) - Lab Data Lab Results 12/23/24 12/23/2412/23/25 Range/Units 14:34 14:34 14:34 WBC 13.9 H (3.8-10.6) k/uL RBC 5.12 (3.80-5.40) m/uL Hgb 15.9 (11.4-16.0) gm/dL Hct 45.9 (34.0-46.0) % MCV 89.7 (80.0-100.0) fL MCH 31.0 (25.0-35.0) pg MCHC 34.5 (31.0-37.0) g/dL RDW 12.4 (11.5-15.5) % Plt Count 240 (150-450) k/uL MPV 10.4 Neutrophils % 66 % Lymphocytes % 24 % Monocytes % 6 % Eosinophils % 2 % Basophils % 1 % Neutrophils # 9.2 H (1.3-7.7) k/uL Lymphocytes # 3.3 (1.0-4.8) k/uL Monocytes # 0.9 (0-1.0) k/uL Eosinophils # 0.2 (0-0.7) k/uL Basophils # 0.1 (0-0.2) k/uL PT (10.0-12.5) sec INR (<1.2) APTT (22.0-30.0) sec Sodium (137-145) mmol/L Potassium (3.5-5.1) mmol/L Chloride (98-107) mmol/L Carbon Dioxide (22-30) mmol/L Anion Gap mmol/L BUN (7-17) mg/dL Creatinine (0.52-1.04) mg/dL Est GFR (CKD-EPI)AfAm (>60 ml/min/1.73 sqM) Est GFR (CKD-EPI)NonAf (>60 ml/min/1.73 sqM) Glucose (74-99) mg/dL Plasma Lactic Acid Fady 1.4 (0.7-2.0) mmol/L Calcium (8.4-10.2) mg/dL Magnesium (1.6-2.3) mg/dL Total Bilirubin (0.2-1.3) mg/dL AST (14-36) U/L ALT (4-34) U/L Alkaline Phosphatase (38-126) U/L Troponin I <0.012 (0.000-0.034) ng/mL Total Protein (6.3-8.2) g/dL Albumin (3.5-5.0) g/dL Urine Color Urine Appearance (Clear) Urine pH (5.0-8.0) Ur Specific Lumpkin (1.001-1.035) Urine Protein (Negative) Urine Glucose (UA) (Negative) Urine Ketones (Negative) Urine Blood (Negative) Urine Nitrite (Negative) Urine Bilirubin (Negative) Urine Urobilinogen (<2.0) mg/dL Ur Leukocyte Esterase (Negative) 12/23/24 12/23/24 12/23/24 Range/Units 14:47 15:50 16:00 WBC (3.8-10.6) k/uL RBC (3.80-5.40) m/uL Hgb (11.4-16.0) gm/dL Hct (34.0-46.0) % MCV (80.0-100.0) fL MCH (25.0-35.0) pg MCHC (31.0-37.0) g/dL RDW (11.5-15.5) % Plt Count (150-450) k/uL MPV Neutrophils % % Lymphocytes % % Monocytes % % Eosinophils % % Basophils % % Neutrophils # (1.3-7.7) k/uL Lymphocytes # (1.0-4.8) k/uL Monocytes # (0-1.0) k/uL Eosinophils # (0-0.7) k/uL Basophils # (0-0.2) k/uL PT 10.8 (10.0-12.5) sec INR 1.0 (<1.2) APTT 23.9 (22.0-30.0) sec Sodium 134 L (137-145) mmol/L Potassium 3.7 (3.5-5.1) mmol/L Chloride 95 L (98-107) mmol/L Carbon Dioxide 30 (22-30) mmol/L Anion Gap 9 mmol/L BUN 11 (7-17) mg/dL Creatinine 0.69 (0.52-1.04) mg/dL Est GFR (CKD-EPI)AfAm >90 (>60 ml/min/1.73 sqM) Est GFR (CKD-EPI)NonAf >90 (>60 ml/min/1.73 sqM) Glucose 140 H (74-99) mg/dL Plasma Lactic Acid Fady (0.7-2.0) mmol/L Calcium 9.7 (8.4-10.2) mg/dL Magnesium 2.0 (1.6-2.3) mg/dL Total Bilirubin 0.5 (0.2-1.3) mg/dL AST 20 (14-36) U/L ALT 17 (4-34) U/L Alkaline Phosphatase 71 (38-126) U/L Troponin I (0.000-0.034) ng/mL Total Protein 6.9 (6.3-8.2) g/dL Albumin 4.0 (3.5-5.0) g/dL Urine Color Colorless Urine Appearance Clear (Clear) Urine pH 7.0 (5.0-8.0) Ur Specific L[place]kin 1.003 (1.001-1.035) Urine Protein Negative (Negative) Urine Glucose (UA) Negative (Negative) Urine Ketones Negative (Negative) Urine Blood Negative (Negative) Urine Nitrite Negative (Negative) Urine Bilirubin Negative (Negative) Urine Urobilinogen <2.0 (<2.0) mg/dL Ur Leukocyte Esterase Negative (Negative) Disposition <Gadiel Bhatti - Last Filed: 12/23/24 17:04> Is patient prescribed a controlled substance at d/c from ED?: No Time of Disposition: 17:56 <Lacie Berg - Last Filed: 12/23/24 20:34> Clinical Impression: Diarrhea Disposition: HOME SELF-CARE Condition: Good Instructions (If sedation given, give patient instructions): Dehydration (ED) Additional Instructions: Please return to the Emergency Department if symptoms worsen or any other concerns. Referrals: Wade Garcia MD [Primary Care Provider] - 1-2 days
[2024-12-23] MEDS: SODIUM CHLORIDE 0.9% 1,000 ML IV STA (14:51)
[2024-12-23 15:00] LABS: Basophils # (A) 0.1 k/uL (0-0.2); Basophils % (A) 1 %; Eosinophils # (A) 0.2 k/uL (0-0.7); Eosinophils % (A) 2 %; HCT 45.9 % (34.0-46.0); HGB 15.9 gm/dL (11.4-16.0); Lymphocytes # (A) 3.3 k/uL (1.0-4.8); Lymphocytes % (A) 24 %; MCHC 34.5 g/dL (31.0-37.0); MCV 89.7 fL (80.0-100.0); Mean Platelet Volume 10.4; Monocytes # (A) 0.9 k/uL (0-1.0); Monocytes % (A) 6 %; Neutrophils # (A) 9.2 k/uL (1.3-7.7); Neutrophils % (A) 66 %; Platelet Count 240 k/uL (150-450); RBC 5.12 m/uL (3.80-5.40); RDW 12.4 % (11.5-15.5); WBC 13.9 k/uL (3.8-10.6)
[2024-12-23 15:12] LABS: ALT 17 U/L (4-34); AST 20 U/L (14-36); African American GFR (CKD) >90 (>60 ml/min/1.73 sqM); Alkaline Phosphatase 71 U/L (38-126); Anion Gap 9 mmol/L; Blood Urea Nitrogen 11 mg/dL (7-17); Calcium 9.7 mg/dL (8.4-10.2); Carbon Dioxide 30 mmol/L (22-30); Chloride 95 mmol/L (98-107); Glucose 140 mg/dL (74-99); Non-African American GFR(CKD) >90 (>60 ml/min/1.73 sqM); Potassium 3.7 mmol/L (3.5-5.1); Sodium 134 mmol/L (137-145); Total Bilirubin 0.5 mg/dL (0.2-1.3); Total Protein 6.9 g/dL (6.3-8.2)
[2024-12-23 16:16] LABS: Partial Thromboplastin Time 23.9 sec (22.0-30.0); Prothrombin Time 10.8 sec (10.0-12.5)
[2024-12-23 17:06] LABS: Appearance,Urine Clear (Clear); Bilirubin,Urine Negative (Negative); Blood,Urine Negative (Negative); Color,Urine Colorless; Glucose,Urine (UA) Negative (Negative); Ketones,Urine Negative (Negative); Leukocyte Esterase,Urine Negative (Negative); Nitrite,Urine Negative (Negative); Protein,Urine Negative (Negative); Specific Gravity,Urine 1.003 (1.001-1.035); Urobilinogen,Urine <2.0 mg/dL (<2.0)
--- NOTE | 2024-12-23 17:32 | CT ---
EXAMINATION TYPE: CT abdomen pelvis w con CT DLP: 1701.2 mGycm, Automated exposure control for dose reduction was used. DATE OF EXAM: 12/23/2024 5:21 PM COMPARISON: CT abdomen 02/17/2024, 08/19/2023, CT abdomen and pelvis 06/03/2023, 05/30/2023 CLINICAL INDICATION:Female, 64 years old with history of pain; Abdominal pain x 1 week TECHNIQUE: Standard CT of the abdomen and pelvis following the administration of 100 cc of Isovue 3 00 IV contrast material. Coronal and sagittal reformats were performed. FINDINGS: LOWER CHEST: Posterior dependent subsegmental atelectasis is noted. Right lower lobe calcified granul cailin. ABDOMEN LIVER: Diffusely hypoattenuating parenchyma. No focal lesion. GALLBLADDER AND BILE DUCTS: Unremarkable. PANCREAS: Unremarkable. SPLEEN: Unremarkable. ADRENAL GLANDS: Unremarkable. KIDNEYS AND URETERS: No evidence of hydronephrosis or renal calculus. The kidneys enhance symmetrical ly. Stable subcentimeter bilateral cortical renal cysts. Continued decrease in size of right lower po le irregular fluid collection measuring 2.3 x 1.2 cm related to posttreatment changes (series 201, im age 45). No evidence for recurrence. Contrast system measured within both collecting systems on the d elayed phase. Previously it measured 3.8 x 1.8 cm. PELVIS BLADDER: Unremarkable REPRODUCTIVE: The uterus is surgically absent. ABDOMEN & PELVIS STOMACH AND BOWEL: Stomach and duodenum are unremarkable. No focal bowel wall thickening or surroundi ng inflammatory changes. No evidence of bowel obstruction. PERITONEUM: No evidence of pneumoperitoneum or free fluid. VASCULATURE: Mild atherosclerotic calcifications are present throughout the abdominal aorta and its b ranches. No evidence of aortic aneurysm. Few pelvic phleboliths. MUSCULOSKELETAL: No acute osseous abnormalities. Multilevel degenerative disc disease with prominent Schmorl's node involving the inferior endplate of the T11 vertebral body. LYMPH NODES: No evidence for lymphadenopathy. SOFT TISSUE/ABDOMINAL WALL: Unremarkable IMPRESSION: 1. No acute abdominal/pelvic process. 2. Continued decrease in size of right lower pole irregular fluid collection related to posttreatment changes. No evidence for recurrence. 3. Hepatic steatosis. [facility], , 12/23/2024 5:30 PM
[2024-12-23] MEDS: SODIUM CHLORIDE 0.9% 1,000 ML IV ONE (18:21)
[2024-12-23 18:29] VITALS: BP 151/87
[2024-12-23 18:40] VITALS: PULSE 80; RESP 16; TEMP 98.9
== END 2024-12-23 18:41 | disposition home or self-care (01) ==
LOC: EC 13:39
DX: R19.7 Diarrhea, unspecified (principal); F17.200 Nicotine dependence, unspecified, uncomplicated; Z88.2 Allergy status to sulfonamides; Z88.5 Allergy status to narcotic agent; Z88.8 Allergy status to other drugs, medicaments and biological substances
CPT/HCPCS: 36415; 93005; 80053; 83605; 83735; 84484; 85025; 85610; 85730; 81003; 74177; 99285; Q9967

== ENCOUNTER → 2025-01-25 | Outpatient (CLI) | payer MEDICARE ==
[~2025-01-25] MED LIST changes: +DOBUTamine DRIP for NUC MED 500 MG in DEXTROSE/WATER 1 250ML.BAG IV PRN; -LACTATED RINGERS 1,000 ML IV SCH; -LIDOCAINE 1% (10MG/ML) FOR IV START INTRADERMA PRN
--- NOTE | 2025-01-25 10:33 | US ---
EXAMINATION TYPE: US carotid duplex BILAT DATE OF EXAM: 01/25/2025 COMPARISON: NONE CLINICAL INDICATION: Female, 64 years old with history of R20.2 PARESTHESIA OF SKIN; 2 days of numbn ess that is gone, no h/o stroke Additional History: .... TECHNIQUE: Grayscale, color Doppler and spectral Doppler evaluation of the bilateral carotid systems and vertebral arteries. Indirect Doppler criteria was utilized. FINDINGS: EXAM MEASUREMENTS: RIGHT: Peak Systolic Velocity (PSV) cm/sec ----- Right CCA: 99.2 ----- Right ICA: 89.3 ----- Right ECA: 104.0 ICA/CCA ratio: 0.9 RIGHT: End Diastole cm/sec ----- Right CCA: 28.5 ----- Right ICA: 31.7 ----- Right ECA: 22.2 LEFT: Peak Systolic Velocity (PSV) cm/sec ----- Left CCA: 116.0 ----- Left ICA: 124.0 ----- Left ECA: 96.0 ICA/CCA ratio: 1.1 LEFT: End Diastole cm/sec ----- Left CCA: 37.2 ----- Left ICA: 57.6 ----- Left ECA: 17.4 VERTEBRALS (direction of flow): Right Vertebral: Antegrade Left Vertebral: Antegrade Rhythm: Normal LINE RIDER NOTES: Mild homogeneous plaque with no significant stenosis seen Color Doppler imaging shows patency with blood flow throughout the carotid artery. Spectral waveforms are within normal limits. IMPRESSION: No evidence for hemodynamically significant stenosis. Right: Left: Criteria for Assigning % of Stenosis / Diameter reduction (Estimation based on the indirect measurements of the internal carotid artery velocities (ICA PSV). 1. Normal (no stenosis)=ICA PSV < 125 cm/s: ratio < 2.0: ICA EDV<40 cm/s. 2. Less than 50% stenosis=ICA PSV < 125 cm/s: ratio < 2.0: ICA EDV<40 cm/s. 3. 50 to 69% stenosis=ICA PSV of 125 to 230 cm/s: ration 2.0 ? 4.0: ICA EDV 40-100 cm/s. 4. Greater than 70% stenosis to near occlusion= ICA PSV > 230 cm/s: ratio > 4.0: ICA EDV > 100 cm/s. 5. Near occlusion= ICA PSV velocities may be low or undetectable: variable ratio and ICA EDV. 6. Total occlusion=unable to detect flow. [facility], , 01/25/2025 10:31 AM
--- NOTE | 2025-01-25 12:30 | CA ---
Dobutamine Stress Echocardiogram Report Gretta Oropeza Age: 64 Gender: F : 1960 Exam Date: 01/25/2025 10:55 Exam Location: [facility] Ordering Physician: Wade Garcia MD Referring Physician: Lili Muir PAC Tax Lawyer: Barbara Sauceda RDCS Technologist: Ht (in): 70 Wt (lb): 235 Procedure CPT: Indication: R20.2 PARESTHESIA OF Z91.89 PERSONAL RISK FACTORS ICD-9 Codes: Rhythm: Patient History: Hypertension, diabetes and family history of heart disease Cardiac Medications: Medications in past 24 hours: Contrast: Total Dose (mL): Stress Results Protocol: Dobutamine Peak Dose (???g/kg/min): 30 Duration (min:sec): Atropine:(mg) Target HR: 132 Double Product: [id number] Resting HR: 68 Resting BP: 120 / 70 Peak HR: 146 Peak BP: 191 / 45 Max Predicted HR: 155 94 % Max Predicted HR Stress Summary: BP Response: Reason for Termination: Exceeded target heart rate (85% max predicted) Cardiac Symptoms: Chest pressure #3 that resolved. ECG Analysis Resting EKG: Normal augmentation in all myocardial segements with stress Stress EKG: No abnormal ST/T wave changes with exercise Arrhythmia: Occasional PVCs Echo Analysis Base Echo Analysis: Normal resting echocardiogram. Low Echo Anaylsis: Normal wall thickening and motion Peak Echo Analysis: Normal wall motion augmentation with no hypokinesis or dyskinesis with decrease in the cavity size Recovery Echo: Normal wall motion MEASUREMENTS (Male/Female) Normal Values CONCLUSIONS 1. Normal electrocardiographic response to dobutamine infusion with occasional PVCs 2. Normal stress echocardiogram with no evidence of stress- induced ischemia Dr. Nolvia Ashton MD (Electronically Signed) Final Date: 25 January 2025 12:29
== END | disposition home or self-care (01) ==
LOC: RADUSWWP 09:37
PROVIDERS: ATTEND Family Medicine
DX: E11.9 Type 2 diabetes mellitus without complications (principal); R20.2 Paresthesia of skin; I10 Essential (primary) hypertension; Z91.89 Other specified personal risk factors, not elsewhere classified; Z82.49 Family history of ischemic heart disease and other diseases of the circulatory system
CPT/HCPCS: 93351; 93880

== ENCOUNTER 2025-05-14 13:34 | Inpatient (IN) | payer MEDICARE ==
--- NOTE | 2025-05-14 14:07 | ED ---
General Adult HPI - General Chief complaint: Weakness Stated complaint: Abd pain Time Seen by Provider: 05/14/25 13:53 Source: patient, EMS, RN notes reviewed Mode of arrival: EMS Limitations: no limitations - History of Present Illness Initial comments: This is a 65-year-old female presenting to the emergency department with complaints of generalized weakness and not feeling well. Patient also was concerned that she may have a urinary tract infection. She states that she has had a decrease in appetite and fevers over the past few days and suprapubic tenderness. She denies dysuria, hematuria, creased urinary frequency or urgency. She denies chest pain, difficulty breathing, constipation. Patient states that she has recently started xifaxan prescribed by her GI specialist to help with diarrhea and believes that she may have been having a reaction to this medication. she endorses chronic loose stools that are nonblood and not dark or tarry. - Related Data Home Medications Medication Instructions Recorded Confirmed Aspirin 81 mg PO DAILY 09/16/15 05/14/25 sitaGLIPtin PHOS/metFORMIN HCL 1 tab PO DAILY 05/07/23 05/14/25 [Janumet Xr 100-1,000 mg Tablet] Cholecalciferol [Vitamin D3 (25 50 mcg PO DAILY 06/18/23 05/14/25 Mcg = 1000 Iu)] Cyanocobalamin (Vitamin B-12) 1,000 mcg PO Q48H 06/18/23 05/14/25 [Vitamin B-12] hydroCHLOROthiazide [Hydrodiuril] 12.5 mg PO DAILY 12/23/24 05/14/25 lisinopriL [Zestril] 2.5 mg PO DAILY 12/23/24 05/14/25 Dicyclomine [Bentyl] 10 mg PO BID 05/14/25 05/14/25 Famotidine 40 mg PO BID 05/14/25 05/14/25 Magnesium Oxide [Magox 400] 400 mg PO DAILY 05/14/25 05/14/25 Nicotine 14Mg/24Hr Patch [Habitrol 1 patch TRANSDERM DIRECTED 05/14/25 05/14/25 14Mg/24Hr Patch] Ondansetron Odt [Zofran Odt] 4 mg PO DAILY PRN 05/14/25 05/14/25 Allergies Allergy/AdvReac Type Severity Reaction Status Date / Time nickel Allergy Rash/Hives Verified 05/14/25 17:23 Sulfa (Sulfonamide Allergy Rash/Hives Verified 05/14/25 17:23 Antibiotics) codeine AdvReac Nausea & Verified 05/14/25 17:23 Vomiting & Diarrhea Review of Systems ROS Statement: Those systems with pertinent positive or pertinent negative responses have been documented in the HPI. ROS Other: All systems not noted in ROS Statement are negative. Past Medical History Past Medical History: Cancer, Diabetes Mellitus, Hypertension Additional Past Medical History / Comment(s): kidney cancer; doesn't wear cpap History of Any Multi-Drug Resistant Organisms: None Reported Past Surgical History: Section, Cholecystectomy, Hysterectomy, Joint Replacement Additional Past Surgical History / Comment(s): LEFT KNEE REPLACEMENT, partial right nephrectomy Past Anesthesia/Blood Transfusion Reactions: No Reported Reaction Additional Past Anesthesia/Blood Transfusion Reaction / Comment(s): no blood transfusion Past Psychological History: Anxiety Smoking Status: Current some day smoker Past Alcohol Use History: Rare Past Drug Use History: None Reported - Past Family History Mother Family Medical History: Hypertension General Exam Limitations: no limitations General appearance: alert, in no apparent distress Neck exam: Present: normal inspection. Absent: tenderness, meningismus, lymphadenopathy Respiratory exam: Present: normal lung sounds bilaterally. Absent: respiratory distress, wheezes, rales, rhonchi, stridor Cardiovascular Exam: Present: regular rate, normal rhythm, normal heart sounds. Absent: systolic murmur, diastolic murmur, rubs, gallop, clicks GI/Abdominal exam: Present: soft, tenderness (suprapubic and LLQ), normal bowel sounds. Absent: distended, guarding, rebound, rigid Extremities exam: Present: normal inspection, full ROM, normal capillary refill. Absent: tenderness, pedal edema, joint swelling, calf tenderness Back exam: Present: normal inspection Course Vital Signs 05/14/25 05/14/25 13:41 15:07 Temperature 99.1 F 98.1 F Pulse Rate 107 H 66 Respiratory 16 14 Rate Blood Pressure 111/94 119/71 O2 Sat by Pulse 95 95 Oximetry Medical Decision Making - Medical Decision Making Was pt. sent in by a medical professional or institution (, PA, DEBONER, urgent care, hospital, or longterm...) When possible be specific @ -No Did you speak to anyone other than the patient for history (EMS, parent, family, police, friend...)? What history was obtained from this source @ -No Did you review nursing and triage notes (agree or disagree)? Why? @ -I reviewed and agree with nursing and triage notes Were old charts reviewed (outside hosp., previous admission, EMS record, old EKG, old radiological studies, urgent care reports/EKG's, longterm records)? Report findings @ -No old charts were reviewed Differential Diagnosis (chest pain, altered mental status, abdominal pain women, abdominal pain men, vaginal bleeding, weakness, fever, dyspnea, syncope, headache, dizziness, GI bleed, back pain, seizure, CVA, palpatations, mental health, musculoskeletal)? @ -Differential Abdominal Pain Women: Appendicitis, Cholecystitis, diverticulosis, ischemic bowel, pancreatitis, hepatitis, UTI, gastroenteritis, AAA, incarcerated hernia, bowel obstruction, constipation, inflammatory bowel, hepatitis, peptic ulcer disease, splenic in farction, perforated viscus, vulvitis, ovarian torsion, PID, kidney stone, placenta abruption, this is not meant to be an all-inclusive list EKG interpreted by me (3pts min.). @ -none X-rays interpreted by me (1pt min.). @ -None done CT interpreted by me (1pt min.). @ -CT imaging of the abdomen and pelvis is concerning for patchy enhancement of the left kidney at lower pole suspicious for pyelonephritis U/S interpreted by me (1pt. min.). @ -None done What testing was considered but not performed or refused? (CT, X-rays, U/S, labs)? Why? @ -None What meds were considered but not given or refused? Why? @ -None Did you discuss the management of the patient with other professionals (professionals i.e. , PA, DEBONER, lab, RT, psych nurse, social media sr strategy manager, register repairer, teacher, founder and chief executive officer, case finisher)? Give summary @ - I spoke with Radu hutchins is agreed to admit the patient. Was smoking cessation discussed for >3mins.? @ -No Was critical care preformed (if so, how long)? @ -No Were there social determinants of health that impacted care today? How? (Homelessness, low income, unemployed, alcoholism, drug addiction, transportation, low edu. Level, literacy, decrease access to med. care, [facility], rehab)? @ -No Was there de-escalation of care discussed even if they declined (Discuss DNR or withdrawal of care, Hospice)? DNR status @ -No What co-morbidities impacted this encounter? (DM, HTN, Smoking, COPD, CAD, Cancer, CVA, ARF, Chemo, Hep., AIDS, mental health diagnosis, sleep apnea, morbid obesity)? @ -None Was patient admitted / discharged? Hospital course, mention meds given and route, prescriptions, significant lab abnormalities, going to OR and other pertinent info. @ -Admitted. 65-year-old female since emergency room with complaints of generalized weakness abdominal pain. Patient is mildly tachycardic on arrival however she is afebrile. Patient noted to have left lower abdominal pain and left suprapubic tenderness to palpation. She is offered pain medication however was declined. She was provided with antiemetics and fluids, undergo laboratory testing in addition to CT imaging of the abdomen. Labs are concerning for leukocytosis of 31 with left shift neutrophils of 23. Urine is concerning for infection with blood leukocytes white cells and bacteria. With urinalysis findings, leukocytosis, and CT findings concerning for pyelonephritis patient will be admitted to internal medicine and started on IV antibiotics. Urine cultures obtained and blood cultures were obtained prior to Rocephin administration. Case discussed with my attending Dr. Delgadillo. Patient will be admitted to [facility]. Undiagnosed new problem with uncertain prognosis? @ -No Drug Therapy requiring intensive monitoring for toxicity (Heparin, Nitro, Insulin, Cardizem)? @ -No Were any procedures done? @ -No Diagnosis/symptom? @ -Pyelonephritis Acute, or Chronic, or Acute on Chronic? @ -Acute Uncomplicated (without systemic symptoms) or Complicated (systemic symptoms)? @ -complicated Side effects of treatment? @ -No Exacerbation, Progression, or Severe Exacerbation? @ -No Poses a threat to life or bodily function? How? (Chest pain, [place], [place], pneumonia, PE, COPD, DKA, ARF, appy, cholecystitis, CVA, Diverticulitis, Homicidal, Suicidal, threat to staff... and all critical care pts) @ -No - Lab Data Result diagrams: 05/14/25 14:35 05/14/25 14:35 Lab Results 05/14/25 05/14/25 05/14/25 Range/Units 14:35 14:35 14:35 WBC 31.12 H (4.50-10.00) 10*3/uL RBC 5.26 H (4.10-5.20) 10*6/uL Hgb 16.0 H (12.0-15.0) g/dL Hct 46.4 H (37.2-46.3) % MCV 88.2 (80.0-97.0) fL MCH 30.4 (27.0-32.0) pg MCHC 34.5 (32.0-37.0) g/dL Plt Count 262 (140-440) 10*3/uL MPV 10.9 (9.5-12.2) fL Immature Gran % (Auto) 0.8 % Neutrophils % (Manual) 76 % Lymphocytes % (Manual) 10 % Monocytes % (Manual) 14 % Immature Gran # 0.26 H (0.00-0.04) 10*3/uL Neutrophils # (Manual) 23.65 H (1.3-7.7) k/uL Lymphocytes # (Manual) 3.11 (1.0-4.8) k/uL Monocytes # (Manual) 4.36 H (0-1.0) k/uL Nucleated RBCs 0 (0-0) /100 WBC Manual Slide Review Performed RBC Morphology Normal Sodium 134 L (137-145) mmol/L Potassium 4.0 (3.5-5.1) mmol/L Chloride 99 (98-107) mmol/L Carbon Dioxide 24 (22-30) mmol/L Anion Gap 11 mmol/L BUN 14 (7-17) mg/dL Creatinine 0.75 (0.52-1.04) mg/dL Est GFR (CKD-EPI)AfAm >90 (>60 ml/min/1.73 sqM) Est GFR (CKD-EPI)NonAf 83 (>60 ml/min/1.73 sqM) Glucose 153 H (74-99) mg/dL Calcium 9.7 (8.4-10.2) mg/dL Magnesium 1.7 (1.6-2.3) mg/dL Total Bilirubin 1.1 (0.2-1.3) mg/dL AST 30 (14-36) U/L ALT 23 (4-34) U/L Alkaline Phosphatase 56 (38-126) U/L Total Protein 6.7 (6.3-8.2) g/dL Albumin 3.9 (3.5-5.0) g/dL Lipase 116 (23-300) U/L Urine Color Urine Appearance (Clear) Urine pH (5.0-8.0) Ur Specific [place] (1.001-1.035) Urine Protein (Negative) Urine Glucose (UA) (Negative) Urine Ketones (Negative) Urine Blood (Negative) Urine Nitrite (Negative) Urine Bilirubin (Negative) Urine Urobilinogen (<2.0) mg/dL Ur Leukocyte Esterase (Negative) Urine RBC (0-5) /hpf Urine WBC (0-5) /hpf Ur Squamous Epith Cells (0-4) /hpf Urine Bacteria (None) /hpf Urine Mucus (None) /hpf 05/14/25 Range/Units 14:38 WBC (4.50-10.00) 10*3/uL RBC (4.10-5.20) 10*6/uL Hgb (12.0-15.0) g/dL Hct (37.2-46.3) % MCV (80.0-97.0) fL MCH (27.0-32.0) pg MCHC (32.0-37.0) g/dL Plt Count (140-440) 10*3/uL MPV (9.5-12.2) fL Immature Gran % (Auto) % Neutrophils % (Manual) % Lymphocytes % (Manual) % Monocytes % (Manual) % Immature Gran # (0.00-0.04) 10*3/uL Neutrophils # (Manual) (1.3-7.7) k/uL Lymphocytes # (Manual) (1.0-4.8) k/uL Monocytes # (Manual) (0-1.0) k/uL Nucleated RBCs (0-0) /100 WBC Manual Slide Review RBC Morphology Sodium (137-145) mmol/L Potassium (3.5-5.1) mmol/L Chloride (98-107) mmol/L Carbon Dioxide (22-30) mmol/L Anion Gap mmol/L BUN (7-17) mg/dL Creatinine (0.52-1.04) mg/dL Est GFR (CKD-EPI)AfAm (>60 ml/min/1.73 sqM) Est GFR (CKD-EPI)NonAf (>60 ml/min/1.73 sqM) Glucose (74-99) mg/dL Calcium (8.4-10.2) mg/dL Magnesium (1.6-2.3) mg/dL Total Bilirubin (0.2-1.3) mg/dL AST (14-36) U/L ALT (4-34) U/L Alkaline Phosphatase (38-126) U/L Total Protein (6.3-8.2) g/dL Albumin (3.5-5.0) g/dL Lipase (23-300) U/L Urine Color Yellow Urine Appearance Cloudy H (Clear) Urine pH 6.0 (5.0-8.0) Ur Specific [place] 1.021 (1.001-1.035) Urine Protein 1+ H (Negative) Urine Glucose (UA) Negative (Negative) Urine Ketones 2+ H (Negative) Urine Blood Moderate H (Negative) Urine Nitrite Negative (Negative) Urine Bilirubin Negative (Negative) Urine Urobilinogen 2.0 (<2.0) mg/dL Ur Leukocyte Esterase Moderate H (Negative) Urine RBC 85 H (0-5) /hpf Urine WBC 60 H (0-5) /hpf Ur Squamous Epith Cells 2 (0-4) /hpf Urine Bacteria Few H (None) /hpf Urine Mucus Occasional H (None) /hpf Disposition Clinical Impression: Pyelonephritis Disposition: ADMITTED IP TO THIS [facility] Condition: Stable Decision to Admit Reason: Admit from EC Decision Date: 05/14/25 Decision Time: 16:51
[2025-05-14] MEDS: ONDANSETRON 4 MG/2 ML VIAL IVP STA (14:27)
[2025-05-14] MEDS: SODIUM CHLORIDE 0.9% 1,000 ML IV ONE (14:27)
[2025-05-14 14:54] LABS: Appearance,Urine Cloudy (Clear); Bilirubin,Urine Negative (Negative); Color,Urine Yellow; Glucose,Urine (UA) Negative (Negative); Ketones,Urine 2+ (Negative); Protein,Urine 1+ (Negative); Specific Gravity,Urine 1.021 (1.001-1.035)
[2025-05-14 14:55] LABS: Bacteria,Urine Few /hpf; Blood,Urine Moderate (Negative); Leukocyte Esterase,Urine Moderate (Negative); Mucus,Urine Occasional /hpf; Nitrite,Urine Negative (Negative); RBC,Urine 85 /hpf (0-5); Squamous Epithelial Cell,Urine 2 /hpf (0-4); WBC,Urine 60 /hpf (0-5)
[2025-05-14 14:58] LABS: HCT 46.4 % (37.2-46.3); MCH 30.4 pg (27.0-32.0); MCHC 34.5 g/dL (32.0-37.0); MCV 88.2 fL (80.0-97.0); Mean Platelet Volume 10.9 fL (9.5-12.2); Platelet Count 262 10*3/uL (140-440); RBC 5.26 10*6/uL (4.10-5.20); RDW 13.4 % (11.5-14.5); WBC 31.12 10*3/uL (4.50-10.00)
[2025-05-14 15:01] LABS: ALT 23 U/L (4-34); African American GFR (CKD) >90 (>60 ml/min/1.73 sqM); Albumin 3.9 g/dL (3.5-5.0); Anion Gap 11 mmol/L; Blood Urea Nitrogen 14 mg/dL (7-17); Calcium 9.7 mg/dL (8.4-10.2); Carbon Dioxide 24 mmol/L (22-30); Chloride 99 mmol/L (98-107); Glucose 153 mg/dL (74-99); Non-African American GFR(CKD) 83 (>60 ml/min/1.73 sqM); Sodium 134 mmol/L (137-145); Total Bilirubin 1.1 mg/dL (0.2-1.3); Total Protein 6.7 g/dL (6.3-8.2)
[2025-05-14 15:12] LABS: AST 30 U/L (14-36); Alkaline Phosphatase 56 U/L (38-126); Magnesium 1.7 mg/dL (1.6-2.3)
[2025-05-14 15:31] LABS: Lymphocytes # (M) 3.11 k/uL (1.0-4.8); Monocytes # (M) 4.36 k/uL (0-1.0); Neutrophils # (M) 23.65 k/uL (1.3-7.7); Neutrophils % (M) 76 %; Nucleated Red Blood Cells 0 /100 WBC (0-0); Total Cells Counted 100
[2025-05-14 15:34] LABS: RBC Morphology Normal
--- NOTE | 2025-05-14 15:56 | CT ---
EXAMINATION TYPE: CT abdomen pelvis w con DATE OF EXAM: 05/14/2025 3:47 PM COMPARISON: None. CLINICAL INDICATION: Female, 65 years old with history of LLQ ab pain, fevers, nausea, low abd pain TECHNIQUE:CT scan of the abdomen and pelvis is performed without Oral Contrast and with IV Contrast, patient injected with 100 mL of Isovue 300. CT DLP: 1543.5 mGycm, Automated exposure control for dose reduction was used. FINDINGS: LUNG BASES-: No visible nodule. No infiltrate. LIVER/GB: No calcified gallstones. No space occupying hepatic lesion. Biliary tree is of normal ca liber. PANCREAS: No inflammation. No distinct mass. SPLEEN: No splenic enlargement. No lesion seen. ADRENALS: No nodule. No thickening. KIDNEYS/BLADDER: There is patchy enhancement of the left kidney at its lower pole suspicious for jimbo lonephritis.No hydronephrosis. No nephrolithiasis. No distinct renal mass. Urinary bladder grossly unremarkable. BOWEL: Normal appendix. Normal bowel caliber. No inflammation. GENITAL ORGANS: No gross abnormality. LYMPH NODES: No greater than 1cm abdominal or pelvic lymph nodes are appreciated. AORTA: No significant abnormality. OSSEOUS STRUCTURES: No significant abnormality is seen. OTHER: No significant additional abnormality is seen. IMPRESSION: 1. There is patchy enhancement of the left kidney at its lower pole suspicious for pyelonephritis. [facility] Macie Macdonald, , 05/14/2025 3:53 PM
[2025-05-14] MEDS ORDERED: ONDANSETRON 4 MG/2 ML VIAL IVP PRN (16:50)
[2025-05-14] MEDS ORDERED: NALOXONE 0.4 MG/ML 1 ML VIAL IV PRN (16:50)
[2025-05-14] MEDS: SODIUM CHLORIDE 0.9% 1,000 ML IV SCH (17:21)
[2025-05-14] MEDS: cefTRIAXone IN SWFI 1,000 MG/10 ML SYRINGE IVP STA (17:22)
[2025-05-14] MEDS: ACETAMINOPHEN TAB 325 MG TAB PO PRN (17:27)
[2025-05-14] MEDS ORDERED: HYDROcodone/APAP 5-325MG 1 EACH TAB PO PRN (18:06)
[2025-05-14] MEDS ORDERED: DEXTROSE 50% SYRINGE 50 ML IVP PRN ×2 (18:13)
--- NOTE | 2025-05-14 18:18 | P.HPIM ---
History of Present Illness H&P Date: 05/14/25 History of Presenting Illness: Patient is a very pleasant 65-year-old female with a past medical history of renal cell carcinoma status post partial right nephrectomy, hypertension, type II sss-gffdshn-urjfvwzlp diabetes mellitus, GERD, and nicotine dependence. She presented to our facility with a chief complaint of generalized fatigue, suprapubic pain and tenderness, chills with vigorous rigors, and diaphoresis. Patient reports she has experienced symptoms like this off and on since November and is always associated them with UTIs but they typically resolve with just drinking extra water and no further interventions. Patient states this time she has been feeling awful for the last 3 days and symptoms have only gotten worse. She reports not she will in the appetite, states she woke up this morning drenched with sweat that she could not even see she had to wait for water/sweat from around her eyes. She admits to having chronic urinary frequency but denies noting any hematuria, dysuria, or urgency. She also reports to chronic loose stools and has been under evaluation by back filler operator for this issue. Patient does admit to subjective fevers at home but states she does not monitor her temp as she should and the highest temperature she personally measured over the past few days it was 100 F. She denies having headache, lightheadedness, dizziness, chest pain, palpitations, shortness of breath, cough or congestion, episodes of vomiting, or any other complaints at this time. Upon arrival to our facility, patient underwent evaluation in the emergency department. Vital signs upon arrival show blood pressure 111/94, heart rate 107, respiratory rate 16, temp 99.1 F, and SpO2 of 95% on room air. Labs completed and reviewed. CBC showing leukocytosis with WBC count of 31.12, immature granulocytes of 0.26, neutrophils of 23.65, and monocytes of 4.36 and polycythemia with hemoglobin of 16.0 and hematocrit of 46.4. BMP showing hyponatremia with sodium of 134 and hyperglycemia with blood glucose of 153. Magnesium slightly low at 1.7. Liver profile unremarkable. Lipase normal findings at 116. Urinalysis positive for blood, protein, ketones, leukocyte esterase, 85 RBCs, and [address] abdomen and pelvis with IV contrast was completed showing patchy enhancement of the left kidney at his lower pole suspicious for pyelonephritis. Patient being admitted under our services for treatment of sepsis secondary to acute pyelonephritis. Review of systems: Pertinent positives and negatives as discussed in HPI, a complete review of systems was performed and all other systems are negative. Physical exam: Vital signs reviewed and stable. General: Nontoxic, no distress and appears stated age. Derm: Skin warm and dry, normal coloration for ethnicity. Head: Atraumatic, normocephalic and symmetric. Eyes: EOM's intact, no lid lag, and anicteric sclera Mouth: no lip lesions, mucus membranes moist Cardiovascular: Tachycardic rate and regular rhythm with normal S1S2, no murmur, positive posterior tibial pulses bilaterally, and cap refill < 2 seconds. Lungs: Respirations even, regular, and unlabored on room air. Lungs CTA bilaterally, no rhonchi, no rales, no wheezing, and no accessory muscle usage. Abdominal: soft, suprapubic tenderness upon palpation along with left CVA tenderness. Ext: ROM intact. No gross muscle atrophy, no edema, no contractures Neuro: Speech clear, face symmetrical and CN II-XII grossly intact with no noted focal neuro deficits Psych: Alert and oriented to person, place, time, and situation. Appropriate and pleasant affect. Assessment and Plan of Care: Acute pyelonephritis Sepsis, secondary to above Leukocytosis Polycythemia Tachycardia -Obtain stat lactic acid, follow-up on these results. - IV antibiotics with Rocephin 2 g daily - Follow-up on blood culture and urine culture results. - Continue with close monitoring of renal function and repeat CBC for close monitoring of leukocytosis. - Telemetry monitoring. - Continuous IV fluid hydration with lactated Ringer's at 125 cc/h. - Symptomatic care and pain management with Tylenol 650 mg p.o. every 6 hours as needed for mild pain and/or fever and [place] 5/325 mg tablets as needed every 4 hours for moderate to severe pain. - Zofran 4 mg IVP every 8 hours as needed for nausea and/or vomiting. Hypomagnesemia -Magnesium 1.7. Orders placed for magnesium sulfate 2 g IVPB x 1 dose. Will continue to monitor with repeat a.m. labs for improvement/resolution of hypomagnesemia. Type II wec-cmibojp-maghagfom diabetes mellitus with hyperglycemia Patient placed on glycemic protocol with Humalog sliding scale. Will follow- up with hemoglobin A1c. Hypertension Monitor vital signs and hold hydrochlorothiazide secondary to current infection with sepsis, may continue lisinopril 2.5 mg daily. History of renal cell carcinoma status post partial right nephrectomy -Renal function currently unremarkable with BUN of 14, creatinine 0.75 and GFR greater than 90. Will continue to monitor renal function closely throughout hospitalization. Data and imaging reviewed: As stated above in HPI The patient is admitted with an anticipated greater than 2 midnight stay for evaluation of pyelonephritis with sepsis CODE STATUS: Full code DVT prophylaxis: Heparin subcu Discussed with: Patient, RN, and ED physician Anticipated discharge date: Pending clinical course Anticipated discharge place: Home Patient was seen independently by Nurse Practitioner. This document was prepared using [employer] dictation software. Please allow for errors in transcription specialist while rare they do occur. Radu Gordon NP rendered care for this patient independently, reviewed the findings and plan as documented in the note above and agree with plan. I did not physically speak with or examine the patient on this date. Past Medical History Past Medical History: Cancer, Diabetes Mellitus, Hypertension Additional Past Medical History / Comment(s): kidney cancer; doesn't wear cpap History of Any Multi-Drug Resistant Organisms: None Reported Past Surgical History: Section, Cholecystectomy, Hysterectomy, Joint Replacement Additional Past Surgical History / Comment(s): LEFT KNEE REPLACEMENT, partial right nephrectomy Past Anesthesia/Blood Transfusion Reactions: No Reported Reaction Additional Past Anesthesia/Blood Transfusion Reaction / Comment(s): no blood transfusion Past Psychological History: Anxiety Smoking Status: Current some day smoker Past Alcohol Use History: Rare Past Drug Use History: None Reported - Past Family History Mother Family Medical History: Hypertension Medications and Allergies Home Medications Medication Instructions Recorded Confirmed Type Aspirin 81 mg PO DAILY 09/16/15 05/14/25 History sitaGLIPtin PHOS/metFORMIN HCL 1 tab PO DAILY 05/07/23 05/14/25 History [Janumet Xr 100-1,000 mg Tablet] Cholecalciferol [Vitamin D3 (25 50 mcg PO DAILY 06/18/23 05/14/25 History Mcg = 1000 Iu)] Cyanocobalamin (Vitamin B-12) 1,000 mcg PO Q48H 06/18/23 05/14/25 History [Vitamin B-12] hydroCHLOROthiazide [Hydrodiuril] 12.5 mg PO DAILY 12/23/24 05/14/25 History lisinopriL [Zestril] 2.5 mg PO DAILY 12/23/24 05/14/25 History Dicyclomine [Bentyl] 10 mg PO BID 05/14/25 05/14/25 History Famotidine 40 mg PO BID 05/14/25 05/14/25 History Magnesium Oxide [Magox 400] 400 mg PO DAILY 05/14/25 05/14/25 History Nicotine 14Mg/24Hr Patch [Habitrol 1 patch TRANSDERM DIRECTED 05/14/25 05/14/25 History 14Mg/24Hr Patch] Ondansetron Odt [Zofran Odt] 4 mg PO DAILY PRN 05/14/25 05/14/25 History Allergies Allergy/AdvReac Type Severity Reaction Status Date / Time nickel Allergy Rash/Hives Verified 05/14/25 17:23 Sulfa (Sulfonamide Allergy Rash/Hives Verified 05/14/25 17:23 Antibiotics) codeine AdvReac Nausea & Verified 05/14/25 17:23 Vomiting & Diarrhea Physical Exam Vitals: Vital Signs Temp Pulse Resp BP Pulse Ox 05/14/25 15:07 98.1 F 66 14 119/71 95 05/14/25 13:41 99.1 F 107 H 16 111/94 95 Intake and Output 05/14/25 05/14/25 05/14/25 06:59 14:59 22:59 Other: Weight 105.233 kg Results CBC & Chem 7: 05/14/25 14:35 05/14/25 14:35 Labs: Abnormal Lab Results - Last 24 Hours (Table) 05/14/25 05/14/25 05/14/25 Range/Units 14:35 14:35 14:38 WBC 31.12 H (4.50-10.00) 10*3/uL RBC 5.26 H (4.10-5.20) 10*6/uL Hgb 16.0 H (12.0-15.0) g/dL Hct 46.4 H (37.2-46.3) % Immature Gran # 0.26 H (0.00-0.04) 10*3/uL Neutrophils # (Manual) 23.65 H (1.3-7.7) k/uL Monocytes # (Manual) 4.36 H (0-1.0) k/uL Sodium 134 L (137-145) mmol/L Glucose 153 H (74-99) mg/dL Urine Appearance Cloudy H (Clear) Urine Protein 1+ H (Negative) Urine Ketones 2+ H (Negative) Urine Blood Moderate H (Negative) Ur Leukocyte Esterase Moderate H (Negative) Urine RBC 85 H (0-5) /hpf Urine WBC 60 H (0-5) /hpf Urine Bacteria Few H (None) /hpf Urine Mucus Occasional H (None) /hpf
[2025-05-14] MEDS: LACTATED RINGERS 1,000 ML IV SCH (18:29)
[2025-05-14] MEDS: MAGNESIUM SULFATE-D5W PMX 1 GM in DEXTROSE/WATER 1 100ML.BAG IVPB SCH (18:30)
[2025-05-14] MEDS: FAMOTIDINE 20 MG TAB PO SCH (22:43)
[2025-05-14] MEDS: INSULIN LISPRO (HumaLOG) 100 UNIT/ML 10 mL VL SQ SCH (22:43)
[2025-05-15] MEDS: HEPARIN SODIUM,PORCINE 5,000 UNIT/ML 1 ML VIAL SQ SCH (00:09)
[2025-05-15 06:24] LABS: Glucose,Whole Blood 139 mg/dL (70-110)
[2025-05-15] MEDS: ASPIRIN 81 MG PO SCH (08:27)
[2025-05-15] MEDS: CHOLECALCIFEROL 25 MCG (1000 IU) TABLET PO SCH (08:28)
[2025-05-15] MEDS: NICOTINE 14MG/24HR PATCH TRANSDERM SCH (08:29)
[2025-05-15] MEDS ORDERED: hydroCHLOROthiazide 12.5 MG CAP PO SCH (09:00)
[2025-05-15 09:56] LABS: HCT 44.8 % (37.2-46.3); HGB 14.2 g/dL (12.0-15.0); MCH 29.5 pg (27.0-32.0); MCHC 31.7 g/dL (32.0-37.0); MCV 92.9 FL (80.0-97.0); NRBC Per 100 WBC 0 X 10*3/uL (0.00-0.01); Platelet Count 249 X 10*3/uL (140-440); RBC 4.82 X 10*6/uL (4.10-5.20); RDW 13.6 % (11.5-14.5); WBC 25.02 X 10*3/uL (4.50-10.00)
[2025-05-15 10:14] LABS: Blood Urea Nitrogen 9.7 mg/dL (9.0-27.0); Glucose 107 mg/dL (70-110)
[2025-05-15 10:15] LABS: ALT 25 U/L (8-44); AST 23 U/L (13-35); Albumin 3.4 g/dL (3.8-4.9); Albumin/Globulin Ratio 1.42 Ratio (1.60-3.17); Alkaline Phosphatase 58 U/L (41-126); BUN/Creat Ratio 10.78 Ratio (12.00-20.00); Calcium 8.8 mg/dL (8.7-10.3); Carbon Dioxide 25.6 mmol/L (21.6-31.8); Chloride 102 mmol/L (96-109); Globulin 2.4 g/dL (1.6-3.3); Magnesium 2.2 mg/dL (1.5-2.4); Potassium 4.3 mmol/L (3.5-5.5); Sodium 139 mmol/L (135-145); Total Bilirubin 0.3 mg/dL (0.3-1.2); Total Protein 5.8 g/dL (6.2-8.2)
[2025-05-15 10:36] LABS: Basophils # (A) 0.12 X 10*3/uL (0.00-0.10); Basophils % (A) 0.5 %; Eosinophils # (A) 0.08 X 10*3/uL (0.04-0.35); Eosinophils % (A) 0.3 %; Lymphocytes # (A) 3.71 X 10*3/uL (0.90-5.00); Lymphocytes % (A) 14.8 %; Monocytes % (A) 10.4 %; Neutrophils # (A) 18.31 X 10*3/uL (1.80-7.70); Neutrophils % (A) 73.2 %
[2025-05-15 12:18] LABS: Glucose,Whole Blood 85 mg/dL (70-110)
--- NOTE | 2025-05-15 15:06 | P.PN ---
Subjective Progress Note Date: 05/15/25 Hospital Course: Patient is a very pleasant 65-year-old female with a past medical history of r enal cell carcinoma status post partial right nephrectomy, hypertension, type II elv-ofqnqkh-rcrtpynxe diabetes mellitus, GERD, and nicotine dependence. She presented to our facility with a chief complaint of generalized fatigue, suprapubic pain and tenderness, chills with vigorous rigors, and diaphoresis. Patient reports she has experienced symptoms like this off and on since November and is always associated them with UTIs but they typically resolve with just drinking extra water and no further interventions. Patient states this time she has been feeling awful for the last 3 days and symptoms have only gotten worse. She reports not she will in the appetite, states she woke up this morning drenched with sweat that she could not even see she had to wait for water/sweat from around her eyes. She admits to having chronic urinary frequency but denies noting any hematuria, dysuria, or urgency. She also reports to chronic loose stools and has been under evaluation by ethnology professor for this issue. Patient does admit to subjective fevers at home but states she does not monitor her temp as she should and the highest temperature she personally measured over the past few days it was 100 F. She denies having headache, lightheadedness, dizziness, chest pain, palpitations, shortness of breath, cough or congestion, episodes of vomiting, or any other complaints at this time. Upon arrival to our facility, patient underwent evaluation in the emergency department. Vital signs upon arrival show blood pressure 111/94, heart rate 107, respiratory rate 16, temp 99.1 F, and SpO2 of 95% on room air. Labs completed and reviewed. CBC showing leukocytosis with WBC count of 31.12, immature granulocytes of 0.26, neutrophils of 23.65, and monocytes of 4.36 and polycythemia with hemoglobin of 16.0 and hematocrit of 46.4. BMP showing hyponatremia with sodium of 134 and hyperglycemia with blood glucose of 153. Magnesium slightly low at 1.7. Liver profile unremarkable. Lipase normal findings at 116. Urinalysis positive for blood, protein, ketones, leukocyte esterase, 85 RBCs, and [address] abdomen and pelvis with IV contrast was completed showing patchy enhancement of the left kidney at his lower pole suspicious for pyelonephritis. Patient being admitted under our services for treatment of sepsis secondary to acute pyelonephritis. Physical exam: Patient seen and fully evaluated at bedside this morning. She continues to report intermittent episodes of diaphoresis and chills with significant rigors throughout the night. Documented temperature high over the past 24 hours was 99.6 F. Patient reports improvement of suprapubic pain, but remains quite tender upon light palpation. She denies any episodes of nausea or vomiting, chest pain or palpitations, or experiencing shortness of breath or cough. She reports she continues to urinate without any difficulties. Vital signs reviewed and stable. General: Nontoxic, no distress and appears stated age. Derm: Skin warm and dry, normal coloration for ethnicity. Head: Atraumatic, normocephalic and symmetric. Eyes: EOM's intact, no lid lag, and anicteric sclera Mouth: no lip lesions, mucus membranes moist Cardiovascular: Tachycardic rate and regular rhythm with normal S1S2, no murmur, positive posterior tibial pulses bilaterally, and cap refill < 2 seconds. Lungs: Respirations even, regular, and unlabored on room air. Lungs CTA bilaterally, no rhonchi, no rales, no wheezing, and no accessory muscle usage. Abdominal: soft, suprapubic tenderness upon palpation, denies CVA tenderness today. Ext: ROM intact. No gross muscle atrophy, no edema, no contractures Neuro: Speech clear, face symmetrical and CN II-XII grossly intact with no noted focal neuro deficits Psych: Alert and oriented to person, place, time, and situation. Appropriate and pleasant affect. Assessment and Plan of Care: Acute pyelonephritis Sepsis, secondary to above Leukocytosis Polycythemia Tachycardia -Obtain stat lactic acid, follow-up on these results. - IV antibiotics with Rocephin 2 g daily - Follow-up on blood culture and urine culture results once available. - Continue with close monitoring of renal function and repeat CBC for close monitoring of leukocytosis. - Telemetry monitoring. - IV fluids discontinued, patient tolerating oral intake - Symptomatic care and pain management with Tylenol 650 mg p.o. every 6 hours as needed for mild pain and/or fever and [place] 5/325 mg tablets as needed every 4 hours for moderate to severe pain. - Zofran 4 mg IVP every 8 hours as needed for nausea and/or vomiting. Hypomagnesemia - Resolved repeat morning potassium 2.2.. Will continue to monitor with repeat a.m. labs and place additional orders if indicated based upon findings Type II bxy-zugdpms-ssgtvncrt diabetes mellitus with hyperglycemia Patient placed on glycemic protocol with Humalog sliding scale. Hemoglobin A1c 6.1%. Hypertension Monitor vital signs and hold hydrochlorothiazide secondary to current infection with sepsis, may continue lisinopril 2.5 mg daily. History of renal cell carcinoma status post partial right nephrectomy -Renal function currently unremarkable with BUN of 14, creatinine 0.75 and GFR greater than 90. Will continue to monitor renal function closely throughout hospitalization. Data and imaging reviewed: Morning labs reviewed. CBC showing slight improvement of leukocytosis with WBC decreasing from 31.1 to down to 25.02 this morning. BMP unremarkable. Blo od glucose 107. Magnesium 2.2. Lactic acid was 1.1. Hemoglobin A1c 6.1%. Vital signs reviewed. Pressure 1861, heart rate 78, respiratory rate 15, temp 98.2 F, and SpO2 of 96% on room air. Temperature high over the past 24 hours was 99.6 F. CODE STATUS: Full code DVT prophylaxis: Heparin subcu Anticipated discharge date: Pending clinical course Anticipated discharge place: Home Patient was seen independently by Nurse Practitioner. This document was prepared using [employer] dictation software. Please allow for errors in inspector [employer] while rare they do occur. Radu Gordon NP rendered care for this patient independently, reviewed the findings and plan as documented in the note above and agree with plan. I did not physically speak with or examine the patient on this date. Objective - Vital Signs Vital signs: Vital Signs Temp 98.2 F 05/15/25 07:00 Pulse 78 05/15/25 07:00 Resp 15 05/15/25 07:00 BP 118/61 05/15/25 07:00 Pulse Ox 96 05/15/25 07:00 FiO2 Intake & Output 05/14/25 05/15/25 05/15/25 18:59 06:59 18:59 Intake Total 540 Balance 540 Weight 105.233 kg Intake: Oral 540 Other: Voiding Method Toilet # Voids 2 - Labs CBC & Chem 7: 05/15/25 03:33 05/15/25 03:33 Labs: Abnormal Lab Results - Last 24 Hours (Table) 05/14/25 05/14/25 05/14/25 Range/Units 14:35 14:35 14:38 WBC 31.12 H (4.50-10.00) 10*3/uL RBC 5.26 H (4.10-5.20) 10*6/uL Hgb 16.0 H (12.0-15.0) g/dL Hct 46.4 H (37.2-46.3) % Immature Gran # 0.26 H (0.00-0.04) 10*3/uL Neutrophils # (Manual) 23.65 H (1.3-7.7) k/uL Monocytes # (Manual) 4.36 H (0-1.0) k/uL Sodium 134 L (137-145) mmol/L Glucose 153 H (74-99) mg/dL POC Glucose (mg/dL) (70-110) mg/dL Hemoglobin A1c (<=6.0) % Urine Appearance Cloudy H (Clear) Urine Protein 1+ H (Negative) Urine Ketones 2+ H (Negative) Urine Blood Moderate H (Negative) Ur Leukocyte Esterase Moderate H (Negative) Urine RBC 85 H (0-5) /hpf Urine WBC 60 H (0-5) /hpf Urine Bacteria Few H (None) /hpf Urine Mucus Occasional H (None) /hpf 05/14/25 05/15/25 Range/Units 18:21 06:22 WBC (4.50-10.00) 10*3/uL RBC (4.10-5.20) 10*6/uL Hgb (12.0-15.0) g/dL Hct (37.2-46.3) % Immature Gran # (0.00-0.04) 10*3/uL Neutrophils # (Manual) (1.3-7.7) k/uL Monocytes # (Manual) (0-1.0) k/uL Sodium (137-145) mmol/L Glucose (74-99) mg/dL POC Glucose (mg/dL) 139 H (70-110) mg/dL Hemoglobin A1c 6.1 H (<=6.0) % Urine Appearance (Clear) Urine Protein (Negative) Urine Ketones (Negative) Urine Blood (Negative) Ur Leukocyte Esterase (Negative) Urine RBC (0-5) /hpf Urine WBC (0-5) /hpf Urine Bacteria (None) /hpf Urine Mucus (None) /hpf
[2025-05-15 17:28] LABS: Glucose,Whole Blood 94 mg/dL (70-110)
[2025-05-15 20:25] LABS: Glucose,Whole Blood 184 mg/dL (70-110)
[2025-05-15] MEDS: ALPRAZolam 0.5 MG TAB PO PRN (21:02)
[2025-05-15] MEDS: MELATONIN 5 MG TABLET PO SCH (21:06)
[2025-05-16 06:13] LABS: Glucose,Whole Blood 118 mg/dL (70-110)
[2025-05-16 08:31] LABS: HCT 41.8 % (37.2-46.3); HGB 13.5 g/dL (12.0-15.0); MCH 29.4 pg (27.0-32.0); MCHC 32.3 g/dL (32.0-37.0); MCV 91.1 fL (80.0-97.0); Mean Platelet Volume 11.1 fL (9.5-12.2); Platelet Count 250 10*3/uL (140-440); RBC 4.59 10*6/uL (4.10-5.20); RDW 13.4 % (11.5-14.5); WBC 13.55 10*3/uL (4.50-10.00)
[2025-05-16 09:01] LABS: African American GFR (CKD) >90 (>60 ml/min/1.73 sqM); Anion Gap 9 mmol/L; Blood Urea Nitrogen 11 mg/dL (7-17); Calcium 8.7 mg/dL (8.4-10.2); Carbon Dioxide 23 mmol/L (22-30); Chloride 105 mmol/L (98-107); Glucose 116 mg/dL (74-99); Magnesium 1.9 mg/dL (1.6-2.3); Non-African American GFR(CKD) >90 (>60 ml/min/1.73 sqM); Potassium 3.9 mmol/L (3.5-5.1); Sodium 137 mmol/L (137-145)
[2025-05-16] MEDS: polyethylene glycoL 3350 17 GM POWD.PACK PO SCH (11:46)
[2025-05-16 12:23] LABS: Glucose,Whole Blood 114 mg/dL (70-110)
--- NOTE | 2025-05-16 14:11 | P.PN ---
Subjective Progress Note Date: 05/16/25 Hospital Course: Patient is a very pleasant 65-year-old female with a past medical history of r enal cell carcinoma status post partial right nephrectomy, hypertension, type II zre-dayezxv-kegopmgab diabetes mellitus, GERD, and nicotine dependence. She presented to our facility with a chief complaint of generalized fatigue, suprapubic pain and tenderness, chills with vigorous rigors, and diaphoresis. Patient reports she has experienced symptoms like this off and on since November and is always associated them with UTIs but they typically resolve with just drinking extra water and no further interventions. Patient states this time she has been feeling awful for the last 3 days and symptoms have only gotten worse. She reports not she will in the appetite, states she woke up this morning drenched with sweat that she could not even see she had to wait for water/sweat from around her eyes. She admits to having chronic urinary frequency but denies noting any hematuria, dysuria, or urgency. She also reports to chronic loose stools and has been under evaluation by contract graphic designer for this issue. Patient does admit to subjective fevers at home but states she does not monitor her temp as she should and the highest temperature she personally measured over the past few days it was 100 F. She denies having headache, lightheadedness, dizziness, chest pain, palpitations, shortness of breath, cough or congestion, episodes of vomiting, or any other complaints at this time. Upon arrival to our facility, patient underwent evaluation in the emergency department. Vital signs upon arrival show blood pressure 111/94, heart rate 107, respiratory rate 16, temp 99.1 F, and SpO2 of 95% on room air. Labs completed and reviewed. CBC showing leukocytosis with WBC count of 31.12, immature granulocytes of 0.26, neutrophils of 23.65, and monocytes of 4.36 and polycythemia with hemoglobin of 16.0 and hematocrit of 46.4. BMP showing hyponatremia with sodium of 134 and hyperglycemia with blood glucose of 153. Magnesium slightly low at 1.7. Liver profile unremarkable. Lipase normal findings at 116. Urinalysis positive for blood, protein, ketones, leukocyte esterase, 85 RBCs, and [address] abdomen and pelvis with IV contrast was completed showing patchy enhancement of the left kidney at his lower pole suspicious for pyelonephritis. Patient being admitted under our services for treatment of sepsis secondary to acute pyelonephritis. Physical exam: Patient seen and fully evaluated at bedside this morning. She continues to report intermittent episodes of diaphoresis and chills with rigors. Earlier this morning patient also was found to have a fever of 101.1 F. Patient reports abdominal pain/suprapubic pressure has resolved and states she is urinating without any difficulties. She does report mild constipation as it has been 2 days since last bowel movement but denies any pain or complaints. She reports passing flatus, no nausea or vomiting, and tolerating oral intake. Vital signs reviewed and stable. General: Nontoxic, no distress and appears stated age. Derm: Skin warm and dry, normal coloration for ethnicity. Head: Atraumatic, normocephalic and symmetric. Eyes: EOM's intact, no lid lag, and anicteric sclera Mouth: no lip lesions, mucus membranes moist Cardiovascular: Tachycardic rate and regular rhythm with normal S1S2, no murmur, positive posterior tibial pulses bilaterally, and cap refill < 2 seconds. Lungs: Respirations even, regular, and unlabored on room air. Lungs CTA bilaterally, no rhonchi, no rales, no wheezing, and no accessory muscle usage. Abdominal: soft, suprapubic tenderness upon palpation, denies CVA tenderness today. Ext: ROM intact. No gross muscle atrophy, no edema, no contractures Neuro: Speech clear, face symmetrical and CN II-XII grossly intact with no noted focal neuro deficits Psych: Alert and oriented to person, place, time, and situation. Appropriate and pleasant affect. Assessment and Plan of Care: Acute pyelonephritis Sepsis, secondary to above Leukocytosis Polycythemia Tachycardia -Obtain stat lactic acid, follow-up on these results. - IV antibiotics with Rocephin 2 g daily - Blood cultures showing no growth to date. Urinary culture preliminarily for gram-negative bacilli. - Continue with close monitoring of renal function and repeat CBC for close monitoring of leukocytosis. - Telemetry monitoring. - IV fluids discontinued, patient tolerating oral intake - Symptomatic care and pain management with Tylenol 650 mg p.o. every 6 hours as needed for mild pain and/or fever and [place] 5/325 mg tablets as needed every 4 hours for moderate to severe pain. - Zofran 4 mg IVP every 8 hours as needed for nausea and/or vomiting. Hypomagnesemia - Resolved repeat morning potassium 2.2.. Will continue to monitor with repeat a.m. labs and place additional orders if indicated based upon findings Type II qff-bbgugjb-bvpoqppul diabetes mellitus with hyperglycemia Patient placed on glycemic protocol with Humalog sliding scale. Hemoglobin A1c 6.1%. Hypertension Monitor vital signs and hold hydrochlorothiazide secondary to current infection with sepsis, may continue lisinopril 2.5 mg daily. History of renal cell carcinoma status post partial right nephrectomy -Renal function currently unremarkable with BUN of 14, creatinine 0.75 and GFR greater than 90. Will continue to monitor renal function closely throughout hospitalization. Data and imaging reviewed: Morning labs reviewed. CBC showing continued improvement of leukocytosis with WBC count decreasing to 13.55 from initial 31.12. BMP remains unremarkable. Blood glucose was 116. Magnesium 1.9. Vital signs reviewed. Blood pressure 146/87, heart rate 61, respiratory rate 16, temp 98.3 F, and SpO2 of 97% on room air. Patient continues to have elevated temp with fever earlier this morning of 101.1 F. CODE STATUS: Full code DVT prophylaxis: Heparin Anticipated discharge date: Pending clinical course Anticipated discharge place: Home Patient was seen independently by Nurse Practitioner. This document was prepared using [employer] dictation software. Please allow for errors in box stacker while rare they do occur. Radu Gordon NP rendered care for this patient independently, reviewed the findings and plan as documented in the note above and agree with plan. I did not physically speak with or examine the patient on this date. Objective - Vital Signs Vital signs: Vital Signs Temp 98.3 F 05/16/25 07:00 Pulse 61 05/16/25 07:00 Resp 16 05/16/25 07:00 BP 146/87 05/16/25 07:00 Pulse Ox 97 05/16/25 07:00 FiO2 Intake & Output 05/15/25 05/16/25 05/16/25 18:59 06:59 18:59 Intake Total 540 Balance 540 Intake: Oral 540 Other: Voiding Method Toilet # Voids 3 1 - Labs CBC & Chem 7: 05/16/25 07:24 05/16/25 07:24 Labs: Abnormal Lab Results - Last 24 Hours (Table) 05/15/25 05/15/25 05/15/25 Range/Units 03:33 03:33 20:20 WBC 25.02 H (4.50-10.00) X 10*3/uL MCHC 31.7 L (32.0-37.0) g/dL Immature Gran # 0.20 H (0.00-0.04) X 10*3/uL Neutrophils # 18.31 H (1.80-7.70) X 10*3/uL Monocytes # 2.60 H (0.20-1.00) X 10*3/uL Basophils # 0.12 H (0.00-0.10) X 10*3/uL BUN/Creatinine Ratio 10.78 L (12.00-20.00) Ratio Glucose (74-99) mg/dL POC Glucose (mg/dL) 184 H (70-110) mg/dL Total Protein 5.8 L (6.2-8.2) g/dL Albumin 3.4 L (3.8-4.9) g/dL Albumin/Globulin Ratio 1.42 L (1.60-3.17) Ratio 05/16/25 05/16/25 05/16/25 Range/Units 06:11 07:24 07:24 WBC 13.55 H (4.50-10.00) X 10*3/uL MCHC (32.0-37.0) g/dL Immature Gran # (0.00-0.04) X 10*3/uL Neutrophils # (1.80-7.70) X 10*3/uL Monocytes # (0.20-1.00) X 10*3/uL Basophils # (0.00-0.10) X 10*3/uL BUN/Creatinine Ratio (12.00-20.00) Ratio Glucose 116 H (74-99) mg/dL POC Glucose (mg/dL) 118 H (70-110) mg/dL Total Protein (6.2-8.2) g/dL Albumin (3.8-4.9) g/dL Albumin/Globulin Ratio (1.60-3.17) Ratio Microbiology - Last 24 Hours (Table) 05/14/25 17:15 Blood Culture - Preliminary Blood 05/14/25 14:38 Urine Culture - Preliminary Urine,Voided Gram Neg Bacilli
[2025-05-16 17:22] LABS: Glucose,Whole Blood 107 mg/dL (70-110)
[2025-05-16 20:29] LABS: Glucose,Whole Blood 131 mg/dL (70-110)
[2025-05-17 06:13] LABS: Glucose,Whole Blood 99 mg/dL (70-110)
[2025-05-17 06:15] VITALS: BP 142/88; PULSE 61; RESP 16; TEMP 98
[2025-05-17 10:21] LABS: HCT 43.3 % (37.2-46.3); HGB 13.8 g/dL (12.0-15.0); MCH 29.5 pg (27.0-32.0); MCHC 31.9 g/dL (32.0-37.0); MCV 92.5 FL (80.0-97.0); Mean Platelet Volume 11.3 FL (9.5-12.2); NRBC Per 100 WBC 0 X 10*3/uL (0.00-0.01); Platelet Count 261 X 10*3/uL (140-440); RBC 4.68 X 10*6/uL (4.10-5.20); RDW 13.4 % (11.5-14.5)
[2025-05-17 10:28] LABS: BUN/Creat Ratio 15.43 Ratio (12.00-20.00); Blood Urea Nitrogen 10.8 mg/dL (9.0-27.0); Calcium 8.5 mg/dL (8.7-10.3); Carbon Dioxide 23.7 mmol/L (21.6-31.8); Chloride 104 mmol/L (96-109); Glucose 98 mg/dL (70-110); Potassium 4.3 mmol/L (3.5-5.5); Sodium 138 mmol/L (135-145)
--- NOTE | 2025-05-17 13:36 | P.DS ---
Providers Date of admission: 05/14/25 16:19 Expected date of discharge: 05/17/25 Attending physician: Carlos Marquez Primary care physician: Wade Garcia Hospital Course: Discharge Diagnosis: Acute pyelonephritis. Patient received 4-day course of IV antibiotics with Rocephin. Urine culture resulting positive for E. coli with no resistance. Blood culture showed no growth. Patient discharged home on Ceftin 500 mg twice daily for an additional 6 days to total a 10-day antibiotic course for treatment of pyelonephritis. Sepsis, secondary to above Leukocytosis, significantly improved from initial 31.12 down to 11.80 on discharge. Polycythemia, believed to be secondary to hemoconcentration and resolved with IV fluid hydration. Tachycardia, resolved. Hypomagnesemia. Resolved. Magnesium on discharge 2.0. Type II mnp-jhzvvym-frkihrdth diabetes mellitus with hyperglycemia hemoglobin A1c 6.1%. Patient to continue Janumet XR 100-1000 mg tablets daily. Hypertension. Continue daily medication regimen with hydrochlorothiazide 12.5 mg daily and lisinopril 2.5 mg daily. History of renal cell carcinoma status post partial right nephrectomy. Renal function stable on discharge with BUN of 10.8, creatinine 0.7, GFR of 95 Hospital Course: Patient is a very pleasant 65-year-old female with a past medical history of renal cell carcinoma status post partial right nephrectomy, hypertension, type II joo-bwzehbe-zeaaucjcv diabetes mellitus, GERD, and nicotine dependence. She presented to our facility with a chief complaint of generalized fatigue, suprapubic pain and tenderness, chills with vigorous rigors, and diaphoresis. Patient reports she has experienced symptoms like this off and on since November and is always associated them with UTIs but they typically resolve with just drinking extra water and no further interventions. Patient states this time she has been feeling awful for the last 3 days and symptoms have only gotten worse. She reports not she will in the appetite, states she woke up this morning drenched with sweat that she could not even see she had to wait for water/sweat from around her eyes. She admits to having chronic urinary frequency but denies noting any hematuria, dysuria, or urgency. She also reports to chronic loose stools and has been under evaluation by laborer rags for this issue. Patient does admit to subjective fevers at home but states she does not monitor her temp as she should and the highest temperature she personally measured over the past few days it was 100 F. She denies having headache, lightheadedness, d izziness, chest pain, palpitations, shortness of breath, cough or congestion, episodes of vomiting, or any other complaints at this time. Upon arrival to our facility, patient underwent evaluation in the emergency department. Vital signs upon arrival show blood pressure 111/94, heart rate 107, respiratory rate 16, temp 99.1 F, and SpO2 of 95% on room air. Labs completed and reviewed. CBC showing leukocytosis with WBC count of 31.12, immature granulocytes of 0.26, neutrophils of 23.65, and monocytes of 4.36 and polycythemia with hemoglobin of 16.0 and hematocrit of 46.4. BMP showing hyponatremia with sodium of 134 and hyperglycemia with blood glucose of 153. Magnesium slightly low at 1.7. Liver profile unremarkable. Lipase normal findings at 116. Urinalysis positive for blood, protein, ketones, leukocyte esterase, 85 RBCs, and [address] abdomen and pelvis with IV contrast was completed showing patchy enhancement of the left kidney at his lower pole suspicious for pyelonephritis. Patient being admitted under our services for treatment of sepsis secondary to acute pyelonephritis.Leukocytosis, significantly improved from initial 31.12 down to 11.80. She had full resolution of suprapubic pain/discomfort and afebrile for greater than 24 hours. Patient received 4-day course of IV antibiotics with Rocephin. Urine culture resulting positive for E. coli with no resistance. Blood culture showed no growth. Patient discharged home on Ceftin 500 mg twice daily for an additional 6 days to total a 10-day antibiotic course for treatment of pyelonephritis. Physical exam: Vital signs reviewed and stable. General: Nontoxic, no distress and appears stated age. Derm: Skin warm and dry, normal coloration for ethnicity. Head: Atraumatic, normocephalic and symmetric. Eyes: EOM's intact, no lid lag, and anicteric sclera Mouth: no lip lesions, mucus membranes moist Cardiovascular: Tachycardic rate and regular rhythm with normal S1S2, no murmur, positive posterior tibial pulses bilaterally, and cap refill < 2 seconds. Lungs: Respirations even, regular, and unlabored on room air. Lungs CTA bilaterally, no rhonchi, no rales, no wheezing, and no accessory muscle usage. Abdominal: soft, nontender upon palpation, denies CVA tenderness. Ext: ROM intact. No gross muscle atrophy, no edema, no contractures Neuro: Speech clear, face symmetrical and CN II-XII grossly intact with no noted focal neuro deficits Psych: Alert and oriented to person, place, time, and situation. Appropriate and pleasant affect. A total of 34 minutes of time were spent preparing this complex discharge summary. Pt was discharged on 05/17/2025 at 11:26 AM. Patient was seen independently by Nurse Practitioner. This document was prepared using [employer] dictation software. Please allow for errors in oral and maxillofacial surgery resident while rare they do occur. Radu Gordon NP rendered care for this patient independently, reviewed the findings and plan as documented in the note above. I did not physically speak with or examine the patient on this date. Patient Condition at Discharge: Stable Plan - Discharge Summary New Discharge Prescriptions: New cefuroxime axetiL [Ceftin] 500 mg PO BID 6 Days #12 tab Continue Nicotine 14Mg/24Hr Patch [Habitrol] 1 patch TRANSDERM DIRECTED Famotidine 40 mg PO BID Dicyclomine [Bentyl] 10 mg PO BID Magnesium Oxide [Magox 400] 400 mg PO DAILY Ondansetron Odt [Zofran ODT] 4 mg PO DAILY PRN PRN Reason: Nausea No Action Aspirin 81 mg PO DAILY sitaGLIPtin PHOS/metFORMIN HCL [Janumet Xr 100-1,000 mg Tablet] 1 tab PO DAILY Cholecalciferol [Vitamin D3 (25 Mcg = 1000 Iu)] 50 mcg PO DAILY lisinopriL [Zestril] 2.5 mg PO DAILY Cyanocobalamin (Vitamin B-12) [Vitamin B-12] 1,000 mcg PO Q48H hydroCHLOROthiazide [Hydrodiuril] 12.5 mg PO DAILY Discharge Medication List Aspirin 81 mg PO DAILY 09/16/15 [History] sitaGLIPtin PHOS/metFORMIN HCL [Janumet Xr 100-1,000 mg Tablet] 1 tab PO DAILY 05/07/23 [History] Cholecalciferol [Vitamin D3 (25 Mcg = 1000 Iu)] 50 mcg PO DAILY 06/18/23 [History] Cyanocobalamin (Vitamin B-12) [Vitamin B-12] 1,000 mcg PO Q48H 06/18/23 [History] hydroCHLOROthiazide [Hydrodiuril] 12.5 mg PO DAILY 12/23/24 [History] lisinopriL [Zestril] 2.5 mg PO DAILY 12/23/24 [History] Dicyclomine [Bentyl] 10 mg PO BID 05/14/25 [History] Famotidine 40 mg PO BID 05/14/25 [History] Magnesium Oxide [Magox 400] 400 mg PO DAILY 05/14/25 [History] Nicotine 14Mg/24Hr Patch [Habitrol] 1 patch TRANSDERM DIRECTED 05/14/25 [History] Ondansetron Odt [Zofran ODT] 4 mg PO DAILY PRN 05/14/25 [History] cefuroxime axetiL [Ceftin] 500 mg PO BID 6 Days #12 tab 05/17/25 [Rx] Follow up Appointment(s)/Referral(s): Wade Garcia MD [Primary Care Provider] - 1-2 days Patient Instructions/Handouts: Urinary Tract Infection in Women (DC), Kidney Infection (DC) Activity/Diet/Wound Care/Special Instructions: Activity: As tolerated. Take breaks as needed. Diet: Heart healthy and carb consistent diet. Special Instructions: Take all of your medications as directed and remember to keep all of your doctor's appointments and follow-up as needed. Thank you for allowing us to participate in your care, it was truly a pleasure having you for our patient!!!
== END 2025-05-17 15:00 | disposition home or self-care (01) | DRG 872 ==
LOC: EC 13:34 → 6NMEDSUR 16:18 → OBSVTOIN 16:19 → 6NMEDSUR 18:17
PROVIDERS: ADMIT Student in an Organized Health Care Education/Training Program; ATTEND Student in an Organized Health Care Education/Training Program
DX: A41.51 Sepsis due to Escherichia coli [E. coli] (principal); E87.1 Hypo-osmolality and hyponatremia; D75.1 Secondary polycythemia; E11.65 Type 2 diabetes mellitus with hyperglycemia; E83.42 Hypomagnesemia; I10 Essential (primary) hypertension; N10 Acute pyelonephritis; K21.9 Gastro-esophageal reflux disease without esophagitis; F17.210 Nicotine dependence, cigarettes, uncomplicated; F41.9 Anxiety disorder, unspecified; Z79.82 Long term (current) use of aspirin; Z79.84 Long term (current) use of oral hypoglycemic drugs; Z79.899 Other long term (current) drug therapy; Z82.49 Family history of ischemic heart disease and other diseases of the circulatory system; Z85.528 Personal history of other malignant neoplasm of kidney; Z90.710 Acquired absence of both cervix and uterus; Z90.5 Acquired absence of kidney; Z96.652 Presence of left artificial knee joint; Z88.2 Allergy status to sulfonamides; Z88.5 Allergy status to narcotic agent
CPT/HCPCS: 36415; 74177; 80048; 80053; 81001; 83036; 83605; 83690; 83735; 85025; 85027; 87040; 87077; 87086; 87186; 96361; 96365; 96375; 99285

== ENCOUNTER → 2025-06-04 | Outpatient (CLI) | payer MEDICARE ==
--- NOTE | 2025-06-04 14:04 | MM ---
Reason for Exam: Screening (asymptomatic). Last mammogram was performed 1 year(s) and 7 month(s) ago. Patient History: Menarche at age 13. First Full-Term at age 24. Left ovary removed at age 41. Right ovary removed at age 41. Hysterectomy at age 41. Postmenopausal. Maternal grandmother had ovarian cancer, age 77. Risk Values: Brittany 5 year model risk: 1.7%. NCI Lifetime model risk: 6.1%. Prior Study Comparison: 04/01/2020 Bilateral Screening Mammogram, [facility] . 05/05/2021 Bilateral Screening Mammogram, [facility] . 05/07/2022 Bilateral Screening Mammogram, [facility] . 11/05/2023 Bilateral MG 3D screening mammo w/cad, [facility]. Tissue Density: There are scattered areas of fibroglandular density. Findings: Analyzed By CAD. Stable small group of benign-appearing round calcifications in the left breast. There is no suspicious group of microcalcifications or new suspicious mass in either breast. Overall Assessment: Benign, BI-RAD 2 Management: Screening Mammogram of both breasts in 1 year. . Patient should continue monthly self-breast exams. A clinical breast exam by your physician is recommended on an annual basis. This exam should not preclude additional follow-up of suspicious palpable abnormalities. Note on Brittany scores and lifetime risk: 1. A Brittany score greater than 3% is considered moderate risk. If this is the case, consider specialist referral to assess eligibility for a risk reducing agent. 2. If overall lifetime risk for the development of breast cancer is 20% or higher, the patient may qualify for future screening with alternating mammogram and breast MRI. [facility], , 06/04/2025 2:01 PM. Electronically signed and approved by: Maxime Barr M.D.
== END | disposition home or self-care (01) ==
LOC: RADMAMWWP 12:58
PROVIDERS: ATTEND Family Medicine
DX: Z12.31 Encounter for screening mammogram for malignant neoplasm of breast (principal); R92.323 Mammographic fibroglandular density, bilateral breasts; Z78.0 Asymptomatic menopausal state
CPT/HCPCS: 77063; 77067

== ENCOUNTER → 2025-06-16 | Outpatient (CLI) | payer MEDICARE ==
--- NOTE | 2025-06-16 14:10 | US ---
EXAMINATION TYPE: US kidneys/renal and bladder DATE OF EXAM: 06/16/2025 COMPARISON: CT 05/14/2025, US 03/25/2023 CLINICAL INDICATION: Female, 65 years old with history of R39.9 SX OF GENITOURINARY SYSTEM; Patient s tates she had recent kidney infection/UTI. History partial nephrectomy on the right side. TECHNIQUE: Grayscale imaging of the bilateral kidneys and urinary bladder: FINDINGS: EXAM MEASUREMENTS: Right Kidney: 10.2 x 5.3 x 5.9 cm Left Kidney: 11.2 x 5.3 x 5.4 cm Right Kidney: There is a 1.5 cm upper pole cortical cyst and a second 1.7 cm more centrally located u pper pole cortical cyst. No hydronephrosis. Left Kidney: No hydronephrosis or masses seen Bladder: wnl Bilateral Jets seen: Yes Incidental echogenic hepatic parenchyma. IMPRESSION: 1. No hydronephrosis. 2. Couple renal cortical cysts on the right measuring up to 1.7 cm. 3. Incidental hepatic steatosis. [facility], Workstation: [id number], 06/16/2025 2:08 PM
== END | disposition home or self-care (01) ==
LOC: RADUSWWP 12:48
PROVIDERS: ATTEND Family Medicine
DX: N28.1 Cyst of kidney, acquired (principal); R39.9 Unspecified symptoms and signs involving the genitourinary system; Z90.5 Acquired absence of kidney
CPT/HCPCS: 76770

== ENCOUNTER 2025-06-25 06:07 | Day surgery (SDC) | payer MEDICARE ==
[2025-06-21 09:35] VITALS: BMI 33.0
[2025-06-25] MEDS ORDERED: LIDOCAINE 1% (10MG/ML) FOR IV START INTRADERMA PRN (06:20)
[2025-06-25 06:29] VITALS: RESP 16; TEMP 97.1
[2025-06-25] MEDS: LACTATED RINGERS 1,000 ML IV SCH (06:37)
[2025-06-25] MEDS: IV FLUID CONTINUATION 1,000 ML IV ONE (06:38)
[2025-06-25 06:41] LABS: Glucose,Whole Blood 118 mg/dL (70-110)
[2025-06-25] MEDS ORDERED: PROPOFOL 10 MG/ML 20 ML VIAL IV ONE (06:58)
[2025-06-25] MEDS ORDERED: LIDOCAINE 1% INJ 10MG/ML (20 ML MDV) ONE (06:58)
--- NOTE | 2025-06-25 07:23 | P.PCN ---
Date of Procedure: 06/25/25 Procedure(s) Performed: Brief history: Patient is a pleasant 65-year-old white female scheduled for an elective upper endoscopy as well as colonoscopy as a part of evaluation of GERD/abdominal pain, change in bowel habits for the last 6 months duration Procedure performed: Esophagogastroduodenoscopy with biopsy Colonoscopy with biopsy Preoperative diagnosis: GERD Changes bowel habits Anesthesia: MAC Procedure: After informed consent was obtained from the patient was brought into the endoscopy unit and IV sedation was administered by anesthesia under continuous monitoring. Initially upper endoscopy was done. The Olympus GF 160 video endoscope was inserted inserted into the mouth and esophagus intubated without any difficulty and was gradually advanced into the stomach and duodenum and carefully examined. The bulb and second part of the duodenum appeared normal. Biopsies were done from the duodenum to rule out celiac disease. The scope was then withdrawn into the stomach adequately insufflated with air and upon careful examination the antrum and mild diffuse gastritis and biopsies were done from this area. Mucosabody, cardia and fundus appeared normal. The scope was then withdrawn into the esophagus. The GE junction was located at 40 cm to the incisors. It appeared regular with no erythema erosions or ulcerations. There was a 3 mm island of Siddiqui's appearing mucosa just proximal to the GE junction that was biopsied. Rest of the esophagus appeared normal. Patient tolerated the procedure well. At this time the patient continued to remain sedation. Initial digital rectal examination was normal. Olympus CF 160 video colonoscope was then inserted into the rectum and gradually advanced to the cecum without any difficulty. Careful examination was performed as the scope was gradually being withdrawn. The prep was excellent. The cecum, ascending colon, transverse colon, descending colon, sigmoid colon and rectum appeared normal. In the distal rectum there was a 2 mm and 3 mm sessile polyp removed by cold biopsy. Random biopsies were done from the ascending and descending colon to rule out microscopic/collagenous colitis. Retroflexion was performed in the rectum and no lesions were noted. Patient tolerated the procedure well. Impression: 1. Upper endoscopy revealed mild antral gastritis and short segment Siddiqui's esophagus 2. Colonoscopy revealed 2 mm and 3 mm distal rectal polyp status post cold biopsy and the rest of the colon appeared normal Recommendations: Findings of this examination were discussed with the patient as well as her family. She was advised to follow-up with the biopsy results. Follow-up in office in 2 weeks. Recommended repeat screening colonoscopy in 10 years.
[2025-06-25 07:52] VITALS: BP 128/86; PULSE 56
== END 2025-06-25 08:15 | disposition home or self-care (01) ==
LOC: ORWHC2ENDO 06:07
PROVIDERS: ATTEND Internal Medicine Gastroenterology
DX: K21.00 Gastro-esophageal reflux disease with esophagitis, without bleeding (principal); K29.50 Unspecified chronic gastritis without bleeding; K22.70 Barrett's esophagus without dysplasia; K62.1 Rectal polyp
CPT/HCPCS: 43239; 45380; 88305